=== PATIENT | female | born 1970 | race Caucasian/White ===

== ENCOUNTER 2018-06-21 10:09 | Outpatient (CLI) | payer BC, SELFPAY ==
[2018-06-21 12:46] LABS: ALT 24 U/L (12-78); AST 16 U/L (15-37); Albumin 3.6 g/dL (3.4-5.0); Alkaline Phosphatase 87 U/L (46-116); Anion Gap 10.4 mmol/L (3-11); BUN 19 mg/dL (7-18); Bilirubin, Total 0.3 mg/dL (0.2-1.0); CO2 24.6 mmol/L (21.0-32.0); CREATININE 0.76 mg/dL (0.55-1.02); Calcium 8.6 mg/dL (8.5-10.1); Chloride 105 mmol/L (98-107); Cholesterol 194 mg/dL (50-200); Glucose 77 mg/dL (70-100); HDL Cholesterol 39 mg/dL (40-60); LDL CHOLESTEROL 147 mg/dL (<100); Potassium 3.9 mmol/L (3.5-5.1); Sodium 140 mmol/L (136-145); Total Protein 6.5 g/dL (6.4-8.2); Triglyceride 54 mg/dL (30-150)
== END 2018-06-21 10:29 ==
PROVIDERS: PCP Family Medicine; Visit Provider Family Medicine
DX: Z00.00 Encounter for general adult medical examination without abnormal findings (principal)
CPT/HCPCS: 36415; 80053; 80061; 83721

== ENCOUNTER 2018-12-13 00:58 | Outpatient (CLI) | payer BC, SELFPAY ==
--- NOTE | 2018-12-13 10:30 | DI.MAMMO_ITS ---
SYMPTOM/DIAGNOSIS: SCREENING, Z12.31 MAMMOGRAMS: Mammograms were interpreted according to the usual protocol including computer analysis with CAD system, tomosynthesis and C view imaging. Comparison is made with prior examinations. Breast density, Category C. No suspicious masses or microcalcifications are seen. There is asymmetric breast tissue in the upper central left breast seen on the mediolateral oblique view. This area should be further evaluated with a spot compression view. Ultrasound may be indicated at that time. IMPRESSION: Additional views of the left breast as described above. Category 0. MQSA ASSESSMENT OF FINDINGS: Incomplete: Needs additional imaging evaluation. Category 0. Patient will receive a letter notifying them of these results. Bi-RADS category C. The breasts are heterogeneously dense, which may obscure small masses.
== END 2018-12-13 01:18 ==
PROVIDERS: PCP Family Medicine; Visit Provider Nurse Practitioner Family
DX: Z12.31 Encounter for screening mammogram for malignant neoplasm of breast (principal); R92.8 Other abnormal and inconclusive findings on diagnostic imaging of breast
CPT/HCPCS: 77063; 77067

== ENCOUNTER 2018-12-16 02:00 | Outpatient (CLI) | payer BC, SELFPAY ==
--- NOTE | 2018-12-16 13:24 | DI.COMBO_ITS ---
SYMPTOMS/DIAGNOSIS: ASYMMETRIC BREAST TISSUE, UPPER CENTRAL LEFT BREAST; PALPABLE PAINFUL LUMP IN RIGHT BREAST, N63.10 ADDITIONAL MAMMOGRAPHIC VIEWS, LEFT BREAST, AND LEFT BREAST ULTRASOUND: Additional images are interpreted according to the usual protocol including tomosynthesis and 2D imaging. Additional mammographic views of the left breast and left breast ultrasound are interpreted in conjunction. These examinations were obtained to evaluate a questionable area of asymmetric density seen on recent mammogram. Additional mammographic views fail to show a discrete mass. Breast ultrasound shows no evidence of a mass or cyst. CONCLUSION: No specific evidence of malignancy at this time. Follow-up unilateral left breast mammogram recommended in six months. Category 3, breast density category C. RIGHT BREAST ULTRASOUND: Right breast ultrasound was performed to evaluate a palpable area of abnormality that the patient reports in approximately the 8 o'clock position in the right breast about 1 cm from the nipple. This palpable area corresponds to a somewhat irregularly shaped, mildly heterogeneous, slightly hypervascular lesion. The lesion is indeterminate with some suspicious characteristics. Note is also made of a multiseptated cyst of the 9-10 o'clock position in the right breast, which is unchanged in appearance in comparison with examination of December 2017. No other lesion identified. CONCLUSION: Palpable suspicious lesion of the 8 o'clock position of the breast as described above. This measures about 1 cm in greatest diameter and lies 1 cm from the nipple. Ultrasound-guided biopsy recommended. Category 4. The results were reported to Esperanza Ortiz NP. MQSA ASSESSMENT OF FINDINGS: Suspicious. Biopsy should be considered. Category 4. Patient will receive a letter notifying them of these results. MQSA ASSESSMENT OF FINDINGS: Probably benign. Six month follow-up recommended. Category 3. Patient will receive a letter notifying them of these results. Bi-RADS category C. The breasts are heterogeneously dense, which may obscure small masses.
== END 2018-12-16 02:20 ==
PROVIDERS: PCP Family Medicine; Visit Provider Nurse Practitioner Family
DX: N63.13 Unspecified lump in the right breast, lower outer quadrant (principal); N60.82 Other benign mammary dysplasias of left breast; Z12.31 Encounter for screening mammogram for malignant neoplasm of breast; R92.8 Other abnormal and inconclusive findings on diagnostic imaging of breast; N60.01 Solitary cyst of right breast
CPT/HCPCS: 76642; 77063; 77067

== ENCOUNTER 2019-02-11 17:38 | Emergency (ER) | payer BC, SELFPAY ==
[2019-02-11 17:43] VITALS: BP 138/79; PULSE 100; RESP 16; TEMP 36.8; O2SAT 99
[2019-02-11] MEDS: Normal Saline Flush 10 ML SYR IVP (18:14)
[2019-02-11] MEDS: Lactated Ringers 1,000 ML 1000 ML IV (18:14)
[2019-02-11 18:30] LABS: Abs Immature Grans 0.04 k/cumm (0.0-0.09); Absolute Lymphocyte Count 1.75 k/cumm (1.2-3.4); Absolute Neutrophil Count 10.36 k/cumm (1.2-6.7); Basophils % 0.2; Eosinophils % 1.5; HCT 35.5 % (36.0-46.0); Immature Grans % 0.3; Lymphocytes % 13.2; Mean Corp. HGB Concentration 33.8 g/dL (32.0-36.0); Mean Corpuscular Hemoglobin 31.4 pg (27.0-33.0); Mean Corpuscular Volume 92.9 fL (80-95); Mean Platelet Volume 10.3 fL (8.0-11.0); Monocytes % 6.6; Neutrophils % 78.2; Platelet Count 259 x1000/uL (130-400); RBC 3.82 m/cumm (4.00-5.20); RBC Distribution Width 13.3 % (11.7-14.6); White Blood Cell Count 13.25 k/cumm (4.4-10.8)
[2019-02-11 18:31] LABS: Absolute Basophil Count 0.03 k/cumm (0.0-0.2); Absolute Monocyte Count 0.87 k/cumm (0.11-0.7)
[2019-02-11 19:04] LABS: ALT 26 U/L (12-78); AST 14 U/L (15-37); Albumin 3.4 g/dL (3.4-5.0); Alkaline Phosphatase 113 U/L (46-116); Anion Gap 12.3 mmol/L (3-11); BUN 18 mg/dL (7-18); Bilirubin, Total 0.2 mg/dL (0.2-1.0); CO2 22.7 mmol/L (21.0-32.0); Calcium 8.4 mg/dL (8.5-10.1); Chloride 104 mmol/L (98-107); Glucose 145 mg/dL (70-100); Potassium 3.5 mmol/L (3.5-5.1); Sodium 139 mmol/L (136-145); Total Protein 6.8 g/dL (6.4-8.2)
[2019-02-11] MEDS: VANCOMYCIN 1,500 MG in Normal Saline 250 ML 166.6666 MG IVPB (19:11)
--- NOTE | 2019-02-11 19:12 | ED.GENADUL_ITS ---
Discharge Plan Disposition Patient Disposition: [facility] Discharge Details Chief Complaint: Cellulitis Clinical Impression: Post-operative infection Primary Care Provider: Katheryn Velasquez ED Provider: Abdoul Ibrahim Home Meds and New Rx's Prescriptions: No Action omeprazole 40 mg capsule,delayed release(DR/EC) 40 mg PO DAILY Qty: 90 RF: 3 lisinopril-hydrochlorothiazide 10-12.5 mg tablet 1 tab PO DAILY Qty: 90 RF: 4 5-HTP 100 MG capsule 100 mg PO DAILY RF: 0 acetaminophen [Tylenol Extra Strength] 500 mg Tablet 1,000 mg PO BID RF: 0 ibuprofen 200 mg Tablet 600 mg PO DAILY RF: 0 Discharge Data Discharge Date/Time-TO BE ENTERED AT DEPARTURE: 02/11/19 22:38 Medical Decision Making 49-year-old female presents 8 days status post right mastectomy with infection at KIM drain site And increased output of KIM drain, febrile with myalgias. Patient is tachycardic. Currently afebrile. Normotensive. Labs reviewed and leukocytosis noted. Mild elevated lactate. Normal saline 1 L IV fluid bolus administered. Plan to initiate antibiotic coverage with vancomycin 1.5 g IV. 19:15 -- Call to [facility] [place] to request transfer. Awaiting call back from surgical team. 20:30 --I spoke with Dr. Freeman we discussed ED presentation and course including diagnostics he recommends adding ceftriaxone to treatment regimen. He will accept the patient in transfer. Awaiting bed confirmation. Lab Data 02/11/19 17:30 Blood Blood Culture - Pending 02/11/19 18:05 Blood Blood Culture - Pending Laboratory Tests Range/Units 02/11/19 02/11/19 02/11/19 18:05 18:05 18:05 WBC (4.4-10.8) k/cumm 13.25 H RBC (4.00-5.20) m/cumm 3.82 L Hgb (12.0-15.5) g/dL 12.0 Hct (36.0-46.0) % 35.5 L MCV (80-95) fL 92.9 MCH (27.0-33.0) pg 31.4 MCHC (32.0-36.0) g/dL 33.8 RDW (11.7-14.6) % 13.3 Plt Count (130-400) x1000/uL 259 MPV (8.0-11.0) fL 10.3 Immature Gran % 0.3 Neutrophils % 78.2 Lymphocytes % 13.2 Monocytes % 6.6 Eosinophils % 1.5 Basophils % 0.2 Absolute Neutrophils (1.2-6.7) k/cumm 10.36 H Absolute Lymphocytes (1.2-3.4) k/cumm 1.75 Absolute Monocytes (0.11-0.7) k/cumm 0.87 H Absolute Eosinophils (0.0-0.7) k/cumm 0.20 Absolute Basophils (0.0-0.2) k/cumm 0.03 Sodium (136-145) mmol/L 139 Potassium (3.5-5.1) mmol/L 3.5 Chloride (98-107) mmol/L 104 Carbon Dioxide (21.0-32.0) mmol/L 22.7 Anion Gap (3-11) mmol/L 12.3 H BUN (7-18) mg/dL 18 Creatinine (0.55-1.02) mg/dL 0.80 Estimated GFR/1.73 m2 (mL/min/1.73m2) >= 60.00 Glucose (70-100) mg/dL 145 H Lactate (0.6-1.4) mmol/L 2.0 H Calcium (8.5-10.1) mg/dL 8.4 L Total Bilirubin (0.2-1.0) mg/dL 0.2 AST (15-37) U/L 14 L ALT (12-78) U/L 26 Alkaline Phosphatase (46-116) U/L 113 Total Protein (6.4-8.2) g/dL 6.8 Albumin (3.4-5.0) g/dL 3.4 Urine Color (Yellow) Urine Clarity (Clear) Urine pH (5-8) Ur Specific [place] (1.005-1.025) Urine Protein (Negative) mg/dL Urine Ketones (Negative) mg/dL Urine Blood (Negative) Urine Nitrite (Negative) Urine Bilirubin (Negative) Urine Urobilinogen (Up TO 0.2) EU/dL Ur Leukocyte Esterase (Negative) Urine RBC (0-2) Urine WBC (0-5) HPF Ur Epithelial Cells (Negative) HPF Urine Crystals (Negative) HPF Urine Bacteria (Negative) HPF Urine Mucus (Negative) Ur Culture Indicated? Urine Glucose (Negative) mg/dL Range/Units 02/11/19 19:45 WBC (4.4-10.8) k/cumm RBC (4.00-5.20) m/cumm Hgb (12.0-15.5) g/dL Hct (36.0-46.0) % MCV (80-95) fL MCH (27.0-33.0) pg MCHC (32.0-36.0) g/dL RDW (11.7-14.6) % Plt Count (130-400) x1000/uL MPV (8.0-11.0) fL Immature Gran % Neutrophils % Lymphocytes % Monocytes % Eosinophils % Basophils % Absolute Neutrophils (1.2-6.7) k/cumm Absolute Lymphocytes (1.2-3.4) k/cumm Absolute Monocytes (0.11-0.7) k/cumm Absolute Eosinophils (0.0-0.7) k/cumm Absolute Basophils (0.0-0.2) k/cumm Sodium (136-145) mmol/L Potassium (3.5-5.1) mmol/L Chloride (98-107) mmol/L Carbon Dioxide (21.0-32.0) mmol/L Anion Gap (3-11) mmol/L BUN (7-18) mg/dL Creatinine (0.55-1.02) mg/dL Estimated GFR/1.73 m2 (mL/min/1.73m2) Glucose (70-100) mg/dL Lactate (0.6-1.4) mmol/L Calcium (8.5-10.1) mg/dL Total Bilirubin (0.2-1.0) mg/dL AST (15-37) U/L ALT (12-78) U/L Alkaline Phosphatase (46-116) U/L Total Protein (6.4-8.2) g/dL Albumin (3.4-5.0) g/dL Urine Color (Yellow) Yellow Urine Clarity (Clear) Clear Urine pH (5-8) 6.0 Ur Specific [place] (1.005-1.025) 1.020 Urine Protein (Negative) mg/dL Negative Urine Ketones (Negative) mg/dL Negative Urine Blood (Negative) Trace-intact H Urine Nitrite (Negative) Negative Urine Bilirubin (Negative) Negative Urine Urobilinogen (Up TO 0.2) EU/dL 0.2 Ur Leukocyte Esterase (Negative) Negative Urine RBC (0-2) 0-2 Urine WBC (0-5) HPF 0-2 Ur Epithelial Cells (Negative) HPF Many Urine Crystals (Negative) HPF Negative Urine Bacteria (Negative) HPF Few Urine Mucus (Negative) Trace Ur Culture Indicated? No Urine Glucose (Negative) mg/dL Negative HPI General Mode of arrival: ambulatory . Date/Time Provider Initiated Documentation: 02/11/19 17:51 . Limitations to Documentation: no limitations . Information obtained by: patient . HPI Narrative: 49yo f presents 8 days status post right mastectomy for breast cancer with chief complaint of inflammation at KIM drain site for the past 2 days. Patient notes she started to have some discomfort and redness at the site that she noticed last night. She also notes that she has not been feeling well for the past couple days. Patient notes generally not feeling well with body aches. She is felt feverish since last night. Fever as high as 99.6F. Patient notes associated increased purulent output from KIM drain. Related Data Home Medications Medication Instructions Recorded Confirmed 5-hydroxytryptophan (5-HTP) [5-Htp] 100 mg PO DAILY 12/21/17 02/11/19 lisinopril 10 1 tab PO DAILY #90 tab 06/21/18 02/11/19 mg-hydrochlorothiazide 12.5 mg tablet omeprazole 40 mg capsule,delayed 40 mg PO DAILY #90 cap 06/21/18 02/11/19 release acetaminophen [Tylenol Extra 1,000 mg PO BID 02/11/19 02/11/19 Strength] ibuprofen 600 mg PO DAILY 02/11/19 02/11/19 Previous Rx's Medication Instructions Recorded lisinopril 10 1 tab PO DAILY #90 tab 06/21/18 mg-hydrochlorothiazide 12.5 mg tablet omeprazole 40 mg capsule,delayed 40 mg PO DAILY #90 cap 06/21/18 release Allergies Allergy/AdvReac Type Severity Reaction Status Date / Time topiramate [From Topamax] AdvReac Verified 02/11/19 17:47 General Stated Complaint: Cellulitis KEVIN: 3 Review of Systems Review of Systems All systems reviewed & are unremarkable except as noted in HPI and below Constitutional Reports body ache(s), Reports fatigue and Reports fever(s) Integumentary/Breasts Reports as per HPI Endocrine Reports fatigue PFSH Medical History Shortness of breath (Chronic) Peptic reflux disease (Chronic 07/26/13) Near syncope (Chronic 11/05/15) Low back pain (Chronic) Left groin pain (Chronic 12/25/14) Intractable migraine without aura and with status migrainosus (Chronic 12/24/15) Hyperlipidemia (Chronic) Hiatal hernia (Chronic) Essential hypertension (Chronic 07/21/13) Depressive disorder (Chronic) Degeneration of cervical intervertebral disc (Chronic) Chronic daily headache (Chronic 12/24/15) BV (bacterial vaginosis) (Resolved) Surgical History EGD - MAC (08/13/14) Endometrial Ablation (~2011) Endometrial Biopsy (08/26/11) Ligation of fallopian tube Vaginal hysterectomy (04/22/16) Family History Father Personal history of malignant neoplasm Aorta aneurysm Hypertension Hyperlipidemia Mother Aorta aneurysm Hypertension Hyperlipidemia Aunt/Uncle Aorta aneurysm Sister Bipolar 1 disorder Son No problems noted. Son No problems noted. Daughter No problems noted. Daughter No problems noted. Social History Smoking/Tobacco Use Status: Never Alcohol Intake: never Drug use: Never Substance use type: does not use Household members: other Details: 3 current occupation: [employer]. Pets and animals: Yes Pets and animals: dog(s) and other Details: RABBIT Frequency: does not exercise Augustina/Rastafari: No preference Special augustina needs: No Do you feel safe at home: Yes Do you feel safe in your relationship?: Yes Exam Const General: cooperative and no acute distress HENMT Head: normocephalic Mouth: moist mucous membranes Eyes Conjunctivae: normal conjunctivae Sclera: normal sclerae Neck Neck: trachea midline Chest Chest: rash (Localized erythema around KIM drain with mild induration, no fluctuance) and other (Surgical wound without erythema) Other: KIM intact and draining Resp Auscultation: clear to auscultation bilaterally, no rales, no rhonchi and no wheezes Cardio Jugular venous pressure: no JVD Rate: tachycardic Rhythm: regular rhythm Skin General skin exam: no rashes or lesions noted Neuro General: alert, awake and tone normal Extrem General: no edema Course Vital Signs Temperature 36.8 C 02/11/19 17:43 Pulse 100 H 02/11/19 17:43 Respiratory Rate 16 02/11/19 17:43 Blood Pressure 138/79 02/11/19 17:43 Pulse Oximetry 99 02/11/19 17:43 Temperature 36.8 C 02/11/19 17:43 Temperature Source Temporal Artery Scan 02/11/19 17:43 Pulse 100 H 02/11/19 17:43 Respiratory Rate 16 02/11/19 17:43 Respiratory Effort Non-Labored 02/11/19 17:45 Blood Pressure 138/79 02/11/19 17:43 Blood Pressure Position Sitting 02/11/19 17:43 Pulse Oximetry 99 02/11/19 17:43 Oxygen Delivery Method Room Air 02/11/19 17:43 Oxygen Flow Rate 0 02/11/19 17:43 Pain Level 8 02/11/19 17:43 Lab/Test Results Lab/Test Results: 02/11/19 17:30 Blood Blood Culture - Pending 02/11/19 18:05 Blood Blood Culture - Pending Laboratory Tests Range/Units 02/11/19 02/11/19 02/11/19 18:05 18:05 18:05 WBC (4.4-10.8) k/cumm 13.25 H RBC (4.00-5.20) m/cumm 3.82 L Hgb (12.0-15.5) g/dL 12.0 Hct (36.0-46.0) % 35.5 L MCV (80-95) fL 92.9 MCH (27.0-33.0) pg 31.4 MCHC (32.0-36.0) g/dL 33.8 RDW (11.7-14.6) % 13.3 Plt Count (130-400) x1000/uL 259 MPV (8.0-11.0) fL 10.3 Immature Gran % 0.3 Neutrophils % 78.2 Lymphocytes % 13.2 Monocytes % 6.6 Eosinophils % 1.5 Basophils % 0.2 Absolute Neutrophils (1.2-6.7) k/cumm 10.36 H Absolute Lymphocytes (1.2-3.4) k/cumm 1.75 Absolute Monocytes (0.11-0.7) k/cumm 0.87 H Absolute Eosinophils (0.0-0.7) k/cumm 0.20 Absolute Basophils (0.0-0.2) k/cumm 0.03 Sodium (136-145) mmol/L 139 Potassium (3.5-5.1) mmol/L 3.5 Chloride (98-107) mmol/L 104 Carbon Dioxide (21.0-32.0) mmol/L 22.7 Anion Gap (3-11) mmol/L 12.3 H BUN (7-18) mg/dL 18 Creatinine (0.55-1.02) mg/dL 0.80 Estimated GFR/1.73 m2 (mL/min/1.73m2) >= 60.00 Glucose (70-100) mg/dL 145 H Lactate (0.6-1.4) mmol/L 2.0 H Calcium (8.5-10.1) mg/dL 8.4 L Total Bilirubin (0.2-1.0) mg/dL 0.2 AST (15-37) U/L 14 L ALT (12-78) U/L 26 Alkaline Phosphatase (46-116) U/L 113 Total Protein (6.4-8.2) g/dL 6.8 Albumin (3.4-5.0) g/dL 3.4
--- NOTE | 2019-02-11 19:14 | NUR.NOTE ---
pt medicated as per mdo iv antibiotis infusing Nursing Note:
[2019-02-11 20:05] LABS: Bilirubin Negative (Negative); Blood Trace-intact (Negative); Clarity Clear (Clear); Glucose Negative (Negative); Ketones Negative (Negative); Leukocyte Esterase Negative (Negative); Nitrite Negative (Negative); Urobilinogen 0.2 EU/dL (Up TO 0.2)
[2019-02-11 20:17] LABS: WBC 0-2 HPF (0-5)
[2019-02-11 20:18] LABS: Bacteria Few HPF (Negative); C & S Indicated? No; Crystals Negative HPF (Negative); Epithelial Cells Many HPF (Negative); Mucus Trace (Negative); RBC 0-2 (0-2)
[2019-02-11] MEDS: cefTRIAXone 2 GM/50 ML BAG IVPB (22:15)
[2019-02-11 22:18] VITALS: BP 119/61; PULSE 96; RESP 18; TEMP 37.3; O2SAT 97
[2019-02-11] MEDS: Normal Saline 1,000 ML 100 ML IV (22:35)
[2019-02-11 23:26] VITALS: BP 119/61; PULSE 96; RESP 18; TEMP 37.3; O2SAT 97
== END 2019-02-11 22:38 | disposition short-term general hospital (02) ==
PROVIDERS: Emergency Provider Student in an Organized Health Care Education/Training Program; PCP Family Medicine
DX: T81.40XA Infection following a procedure, unspecified, initial encounter (principal); R00.0 Tachycardia, unspecified; Z90.11 Acquired absence of right breast and nipple
CPT/HCPCS: 36415; 80053; 87040; 96361; 96365; 96366; 96367; 99285; 81003; 81015; 83605; 85025; 99284

== ENCOUNTER 2019-05-18 03:34 | Outpatient (CLI) | payer BC, SELFPAY ==
[2019-05-18 10:41] LABS: Abs Immature Grans 0.03 k/cumm (0.0-0.09); Absolute Basophil Count 0.02 k/cumm (0.0-0.2); Absolute Eosinophil Count 0.11 k/cumm (0.0-0.7); Absolute Monocyte Count 0.37 k/cumm (0.11-0.7); Absolute Neutrophil Count 3.71 k/cumm (1.2-6.7); Basophils % 0.3; Eosinophils % 1.9; HCT 40.4 % (36.0-46.0); HGB 13.3 g/dL (12.0-15.5); Immature Grans % 0.5; Lymphocytes % 26.1; Mean Corp. HGB Concentration 32.9 g/dL (32.0-36.0); Mean Corpuscular Hemoglobin 30.3 pg (27.0-33.0); Mean Platelet Volume 10.7 fL (8.0-11.0); Monocytes % 6.4; Neutrophils % 64.8; Platelet Count 240 x1000/uL (130-400); RBC 4.39 m/cumm (4.00-5.20); RBC Distribution Width 13.6 % (11.7-14.6); White Blood Cell Count 5.74 k/cumm (4.4-10.8)
[2019-05-18 11:07] LABS: ALT 27 U/L (14-59); AST 18 U/L (15-37); Albumin 3.6 g/dL (3.4-5.0); Alkaline Phosphatase 96 U/L (46-116); Anion Gap 7.4 mmol/L (3-11); BUN 17 mg/dL (7-18); Bilirubin, Total 0.3 mg/dL (0.2-1.0); CO2 28.6 mmol/L (21.0-32.0); CREATININE 0.78 mg/dL (0.55-1.02); Calcium 8.5 mg/dL (8.5-10.1); Calculated LDL 141 mg/dL; Chloride 105 mmol/L (98-107); Cholesterol 214 mg/dL (50-200); Glucose 95 mg/dL (70-100); HDL Cholesterol 40 mg/dL (40-60); Potassium 4.1 mmol/L (3.5-5.1); Sodium 141 mmol/L (136-145); TSH (W/Ref FT4) 1.08 uIU/mL (0.36-3.74); Total Protein 6.5 g/dL (6.4-8.2); Triglyceride 167 mg/dL (30-150)
[2019-05-19 20:26] LABS: Tissue Transglutaminase Ab IgA <1.2 U/mL
== END 2019-05-18 03:54 ==
PROVIDERS: PCP Family Medicine; Visit Provider Nurse Practitioner Family
DX: Z00.00 Encounter for general adult medical examination without abnormal findings (principal); Z13.228 Encounter for screening for other metabolic disorders; Z13.220 Encounter for screening for lipoid disorders; Z13.29 Encounter for screening for other suspected endocrine disorder; K90.0 Celiac disease
CPT/HCPCS: 36415; 80053; 80061; 83516; 84443; 85025

== ENCOUNTER 2019-06-16 01:51 | Outpatient (CLI) | payer BC, SELFPAY ==
[2019-06-16 13:11] LABS: Anion Gap 9.3 mmol/L (3-11); BUN 16 mg/dL (7-18); CO2 25.7 mmol/L (21.0-32.0); CREATININE 0.73 mg/dL (0.55-1.02); Calcium 8.7 mg/dL (8.5-10.1); Chloride 105 mmol/L (98-107); Glucose 110 mg/dL (70-100); Sodium 140 mmol/L (136-145)
== END 2019-06-16 02:11 ==
PROVIDERS: Nurse Practitioner; PCP Family Medicine; Visit Provider Family Medicine
DX: R00.2 Palpitations (principal)
CPT/HCPCS: 36415; 80048; 84443

== ENCOUNTER 2019-06-22 01:56 | Outpatient (CLI) | payer BC, SELFPAY | END 2019-06-22 02:16 | PROVIDERS: PCP Family Medicine; Visit Provider Nurse Practitioner | DX: R00.0 Tachycardia, unspecified (principal); I49.3 Ventricular premature depolarization | CPT/HCPCS: 93225 ==

== ENCOUNTER 2019-06-24 14:13 | Outpatient (CLI) | payer BC, SELFPAY ==
--- NOTE | 2019-06-26 08:23 | W.HOLTRPT ---
Date of service: 06/26/19 Time of Service: 08:23 Holter Monitor Report Holter Monitor Note: There is a 48-hour Holter monitor ordered for the indication of palpitations. ?The patient was in normal sinus rhythm for the majority of the recording time. Heart rate ranged from 63 bpm to 133 bpm ?There were no episodes of supraventricular tachycardia. There were no premature atrial contractions. ?There were no episodes of ventricular tachycardia and 3 total single ventricular ectopic beats during this recording. ?There were no episodes of atrial fibrillation, no pauses gradient 3 seconds and no episodes of high degree heart block.
== END 2019-06-24 14:33 ==
PROVIDERS: PCP Family Medicine; Visit Provider Family Medicine
DX: R00.0 Tachycardia, unspecified (principal); I49.3 Ventricular premature depolarization
CPT/HCPCS: 93226

== ENCOUNTER 2019-06-26 10:53 | Outpatient (CLI) | payer BC, SELFPAY ==
[2019-06-29 16:29] LABS: 1,25-Dihydroxyvitamin D 58 pg/mL (18-78)
== END 2019-06-26 11:13 ==
PROVIDERS: PCP Family Medicine; Visit Provider Family Medicine
DX: Z00.00 Encounter for general adult medical examination without abnormal findings (principal); M81.0 Age-related osteoporosis without current pathological fracture
CPT/HCPCS: 36415; 82652

== ENCOUNTER 2019-07-18 01:57 | Outpatient (CLI) | payer BC, SELFPAY ==
[2019-07-18 13:32] LABS: ESR 21 mm/hr (0-20)
[2019-07-18 14:40] LABS: C-Reactive Protein 0.29 mg/dL (0.0-0.3); Creatine Kinase 131 U/L (26-192); TSH (W/Ref FT4) 1.19 uIU/mL (0.36-3.74)
[2019-07-18 14:42] LABS: Vitamin B12 416 pg/mL (193-986)
[2019-07-19 08:58] LABS: Vitamin D 25 Total 19.9 ng/ml (30-100)
[2019-07-19 09:02] LABS: Cyclic Citrullinated Peptide <2.5 U/mL (<5.0)
[2019-07-19 10:47] LABS: Rheumatoid Factor <7.5 IU/mL (<12.5)
[2019-07-19 10:58] LABS: Lyme Ab w Rflx to Lyme Confirm Negative (Negative)
[2019-07-19 13:25] LABS: IgA 175 mg/dL (85-499); Tissue Transglutaminase IgA <1.2 U/mL (<4.0)
[2019-07-19 15:26] LABS: ANA Interpretation Negative (Negative)
== END 2019-07-18 02:17 ==
PROVIDERS: PCP Family Medicine; Visit Provider Family Medicine
DX: R00.2 Palpitations (principal); R06.02 Shortness of breath; R53.83 Other fatigue; M25.50 Pain in unspecified joint
CPT/HCPCS: 36415; 82306; 82550; 82784; 83516; 85652; 86200; 82607; 84443; 86038; 86140; 86431; 86618

== ENCOUNTER 2019-08-03 00:20 | Outpatient (CLI) | payer BC, SELFPAY ==
--- NOTE | 2019-08-03 13:50 | DI.US_ITS ---
APPROVED REPORT EXAM: Comprehensive 2D, Doppler, and color-flow Echocardiogram Patient Location: Out-Patient Mechanical Assembler: Gogo Salazar RDCS (AE) Rhythm: NSR Indications: Shortness of breath R06.02, PALPITATIONS R00.2 Conclusion Normal LV size and systolic function. Estimated EF 60-65%. Normal wall motion There is no chamber enlargement There are no significant structural valvular abnormalites There is no hemodynamically significant valvular disease Wall motion Left Ventricle The left ventricle is normal size. The left ventricular systolic function is normal. The left ventric ular ejection fraction is within the normal range. There is normal left ventricular wall thickness. T here is normal LV segmental wall motion. Transmitral Doppler flow pattern suggests impaired LV relaxa tion. LVEF is estimated to be 60-65%. Right Ventricle The right ventricle is normal size. The right ventricular systolic function is normal. Atria The left atrium size is normal. The right atrium size is normal. Aortic Valve The aortic valve is normal in structure. There is no aortic valvular stenosis. No aortic regurgitatio n is present. Mitral Valve Mitral valve leaflets are mildly thickened. Trace to mild mitral regurgitation. Tricuspid Valve The tricuspid valve is mildly thickened, but opens well. Mild tricuspid regurgitation. Pulmonic Valve Pulmonic valve is not well visualized. Great Vessels The aortic root is normal in size. IVC is normal in size and collapses >50% with inspiration. Pericardium There is no pericardial effusion. 2D Dimensions IVSd 0.65 cm F: 0.6-1.0 LV EDV A2C 111.00 mL PWd 0.90 cm F: 0.6 - 1.0 LV EDV A4C 86.50 mL LVDd 4.25 cm F: 3.8 - 5.2 LA Volume Index A2C 21.98 mL/m2 LVDs 2.80 cm F: 2.2 - 3.5 LA Volume Index A4C 27.09 mL/m2 Aortic Root 2.65 cm F: 2.7 - 3.3 LA Volume Index Biplane 26.08 mL/m2 RA Area A4C 12.07 cm2 LA Area A4C 16.11 cm2 LVOT 1.85 cm (M/F) 1.5-2.5 LA Area A2C 15.51 cm2 Ascending Aorta 3.03 cm F: 2.3 - 3.1 EF AP4 65.55 % LVEF (Teich) 63.63 % EF AP2 63.87 % LVEF (Blair's) 64.61 % F: 54 - 74 EF BP 64.61 % LV Volume 80.24 mL F: 46 - 106 LV Volume Index 42.90 mL/m2 F: 29 - 61 FS 34.25 % LV Diastology E/A Ratio 1.1 MED E' 0.11 (>0.07 m/s) LV E/e MED 8.25 (<14) LAT E' 0.13 (>0.1 m/s) LV E/e LAT 7.30 (<14) Pulm Vein s 0.65 m/s PV S/D Ratio 1.18 Pulm Vein d 0.55 m/s Pulm Vein a 0.32 m/s A-A Duration 138.13 msec Aortic Valve LVOT Area 2.83 cm2 LVOT Vmax 1.39 m/s LVOT Mean Papi. 0.97 m/s LVOT Peak Gr. 7.7 mmHg LVOT Mean Gr. 4.4 mmHg AoV Area/ BSA (Vmax) 1.17 cm2/m2 LVOT VTI 0.267 m AoV Vmax 1.80 (0.5-1.3 m/s) SYLVESTER Mean Papi. Index 1.20 cm2/m2 AoV Mean Papi. 1.23 m/s AoV Peak Grad 13.0 mmHg AoV Mean Grad 6.6 (<5 mmHg) AoV VTI 0.334 (0.18-0.25 m) AoV Area VTI 2.30 (2.5-4.5 cm2) AoV Area/ BSA (VTI) 1.23 cm/m2 Mitral Valve MV E Max Papi. 0.94 (0.4-1.3 m/s) MV A Velocity 0.85 (0.4-1.3 m/s) E/A Ratio 1.06 MV Decel. Time 214.40 (160-240 msec) MV Regurg Volume 9.72 mL MV PHT 62.18 msec MV RF 11.23 % MVA PHT 3.50 cm2 Pulmonary Valve PV Peak Velocity 1.07 (0.5-1.5 m/s) Tricuspid Valve TR P. Velocity 2.24 m/s TV Regurg Vmax 2.24 m/s RAP Estimate 3.00 mmHg RVSP 23.00 mmHg TR P. Gradient 20.00 mmHg
== END 2019-08-03 00:40 ==
PROVIDERS: PCP Family Medicine; Visit Provider Family Medicine
DX: R00.2 Palpitations (principal); R06.02 Shortness of breath; I10 Essential (primary) hypertension
CPT/HCPCS: 93306

== ENCOUNTER 2020-02-23 09:11 | Outpatient (CLI) | payer BC, SELFPAY ==
--- NOTE | 2020-02-23 09:30 | DI.RAD_ITS ---
EXAM: XR LUMBAR SPINE COMPLETE CLINICAL HISTORY: lbp LOW BACK PAIN M54.5 TECHNIQUE: COMPARISON: CR LUMBAR SPINE COMPLETE from 08/10/2013 FINDINGS: Five views were obtained. There are mild degenerative changes of the SI joints bilaterally. There is bilateral L5 spondylolysis with spondylolisthesis of L5 on S1 estimated at 20 percent of the vertebral width. The intervertebral disc spaces appear well maintained except for disc space loss of height at L5-S1. Mild hypertrophic endplate and facet changes noted throughout the lumbar region. No evidence of fra cture. IMPRESSION: Bilateral L5 spondylolysis with associated mild anterior spondylolisthesis of L5 on S1 estimated at 2 0 percent of the vertebral width. Mild degenerative hypertrophic changes also noted involving facet joints and vertebral endplates.
== END 2020-02-23 09:31 ==
PROVIDERS: PCP Family Medicine; Visit Provider Family Medicine
DX: M54.5 Low back pain (principal); M43.17 Spondylolisthesis, lumbosacral region; M51.36 Other intervertebral disc degeneration, lumbar region
CPT/HCPCS: 72110

== ENCOUNTER 2020-03-06 01:51 | Outpatient (CLI) | payer BC, SELFPAY ==
--- NOTE | 2020-03-06 06:00 | DI.MRI_ITS ---
EXAM: MR LUMBAR SPINE WO CLINICAL HISTORY: spondylosis worse, weak quads and decreased reflex L4,m43.17,m62.81,r29.2. TECHNIQUE: Multiplanar multisequence MRI of the Lumbar spine was performed. COMPARISON: MR MRI - LUMBAR SPINE WO CONTRAST from 09/06/2013 CR XR LUMBAR SPINE COMPLETE from 02/23/2020 FINDINGS: Bones: The last intervertebral disc space is designated the L5/S1 level for the numbering purpose of this examination. The vertebral body heights are well maintained. Alignment is satisfactory. The si gnal characteristics are unremarkable. Cord: The conus tip ends at the T12 level. It is of normal size and signal intensity. T12-L1: No disc herniations or bulges are present. L1-2: No disc herniations or bulges are present. L2-3: No disc herniations or bulges are present. L3-4: No disc herniations or bulges are present. L4-5: No disc herniations or bulges are present. L5-S1: There is moderate loss disc height, small endplate osteophytes and mild concentric disc bulgi ng. There is a right foraminal disc herniation with nerve root impingement. There is [id number] te left neural foraminal narrowing. L5 spondylolysis and mild S1 L5-S1 spondylolisthesis is present. Soft tissues: The visualized SI joints and sacrum are well maintained. The paraspinal soft tissues ar e unremarkable. IMPRESSION: L5 spondylolysis and mild L5-S1 spondylolisthesis. Focal disc herniation occupying the right neural foramen. Left neural foraminal narrowing secondary to combination of degenerative changes and spond ylo listhesis. DATA REPOSITORY:
--- NOTE | 2020-03-06 06:00 | DI.RAD_ITS ---
EXAM: XR LUMBAR SPINE AP, LAT CLINICAL HISTORY: 10-20% increase in spondylo in 6 years,m43.17,m62.81,r29.2 TECHNIQUE: 2D digital imaging was performed. AP, neutral, flexion and extension lateral views. COMPARISON: CR XR LUMBAR SPINE COMPLETE from 02/23/2020 MR MR LUMBAR SPINE WO from 03/06/2020 FINDINGS: L5 spondylolysis and L5 spondylolisthesis is again noted, unchanged. There is slight motion with fl exion and extension. The patient experience pain with flexion and extension in the range of motion w as somewhat limited. There is moderate loss of disc height at L5-S1. The remaining disc spaces are well maintained. Small endplate osteophytes are seen. There are facet degenerative changes greatest at L4-5. IMPRESSION: L5 spondylolysis and mild L5-S1 spondylolisthesis with slight motion with flexion and extension.
== END 2020-03-06 02:11 ==
PROVIDERS: PCP Family Medicine; Visit Provider Family Medicine
DX: M43.17 Spondylolisthesis, lumbosacral region (principal); M62.81 Muscle weakness (generalized); R29.2 Abnormal reflex
CPT/HCPCS: 72100; 72148

== ENCOUNTER 2020-10-08 08:39 | Emergency (ER) | payer BC, SELFPAY ==
[2020-10-08 08:44] VITALS: BP 191/92; PULSE 118; RESP 16; TEMP 37.4; O2SAT 98
--- NOTE | 2020-10-08 08:55 | W.ED.GENAD ---
Discharge Plan Disposition Patient Disposition: HOME Condition: Stable Discharge Details Clinical Impression: Left ovarian cyst Primary Care Provider: Katheryn Velasquez ED Provider: Alta Dowd Home Meds and New Rx's Prescriptions: Continued cholecalciferol (vitamin D3) 250 mcg (10,000 unit) capsule 250 mcg PO DAILY RF: 0 erythromycin 5 mg/gram (0.5 %) ointment 1 applic OP QID Qty: 1 RF: 1 omeprazole 40 mg capsule,delayed release(DR/EC) 40 mg PO BID Qty: 90 RF: 3 lisinopril-hydrochlorothiazide 10-12.5 mg tablet 1 tab PO DAILY Qty: 90 RF: 4 acetaminophen [Tylenol Extra Strength] 500 mg tablet 1,000 mg PO BID PRNRF: 0 Discharge Instructions Instructions: Ovarian Cyst (ED) Additional Instructions: Follow up with primary care provider in 7-10 days. Please discuss with primary care provider the concern for 5 mg of glucose in your urine. Return to ED sooner if any worsening or concerns. Increase oral fluids. At this time ultrasound shows a small 14 mm left ovarian cyst. This continues to cause you significant pain and/or nausea vomiting please follow-up sooner or return to the ED. Please take Tylenol or Ibuprofen with food every 4-6 hours as needed for pain and swelling. Referrals: Katheryn Velasquez MD, [place] [Primary Care Provider] - Discharge Data Discharge Date/Time-TO BE ENTERED AT DEPARTURE: 10/08/20 11:30 Medical Decision Making 50-year-old female presents to the ED with chief complaint of abdominal pain. This started Wednesday night she states that it began with left lower quadrant abdominal pain which radiated around abdomen and up into her right upper quadrant. She states that it radiates into her left lower back. Associated with nausea, no vomiting no diarrhea. She also endorses urinary frequency. Denies any fever, chills, admit to emesis or hematochezia. She does have a past surgical history of a endometrial ablation, hysterectomy breast cancer, chronic gastritis, hiatal hernia, hypertension, hyperlipidemia. 1104: Patient reevaluation, patient states that she is complaining of 2-3 out of 10 intermittent abdominal pain which waxes and wanes. I did discuss her lab results with her including the slightly low potassium at 3.4, glucose of 114, urine ketones at 15, and 500 mg of glucose in her urine. Urine is negative for leukocytes or nitrites no evidence for UTI. Due to the complaint of urinary frequency a hemoglobin A1c was added onto her labs. I did discuss having patient follow-up with PCP regarding her sugar and spilling glucose in her urine. Abdominal US: FINDINGS: Abdominal ultrasound was performed according to the usual protocol. The liver is normal in size and shape. No focal hepatic lesion seen. There is no evidence of cholelithiasis or biliary dilatation. No gallbladder wall thickening or pericholecystic fluid collection. Pancreas appears intact as visualized. Spleen is unremarkable in appearance with no focal lesion. Kidneys are normal in size and shape. No renal mass, hydronephrosis, or nephrolithiasis. Abdominal aorta and IVC are of normal diameter. Scanning of the pelvis was performed with transabdominal and transvaginal scanning. The uterus has been surgically removed. Left ovary contains 14 millimeter in diameter presumed dominant follicle. No solid mass or complex mass identified in either ovary. Right ovary measures 26 x 14 x 13 millimeters and left ovary measures 21 x 12 by 16 millimeters. No free fluid identified the pelvis. IMPRESSION: Negative abdominal ultrasound . Discussed ultrasound results with patient who verbalizes understanding. She does have a history of ovarian cysts. Discussed home care and follow-up strict return instructions, verbalized understanding. Patient was given 3 tablets of Zofran ODT to go. This text was generated using [employer] system, please disregard any oddities of phrase or misspellings. HPI General Mode of arrival: ambulatory. Date/Time Provider Initiated Documentation: 10/08/20 08:41. Limitations to Documentation: no limitations. Information obtained by: patient. HPI Narrative: 50-year-old female presents to the ED with chief complaint of abdominal pain. This started Wednesday night she states that it began with left lower quadrant abdominal pain which radiated around abdomen and up into her right upper quadrant. She states that it radiates into her left lower back. Associated with nausea, no vomiting no diarrhea. She also endorses urinary frequency. Denies any fever, chills, admit to emesis or hematochezia. She does have a past surgical history of a endometrial ablation, hysterectomy breast cancer, chronic gastritis, hiatal hernia, hypertension, hyperlipidemia. Related Data Home Medications Medication Instructions Recorded Confirmed acetaminophen 500 mg tablet 1,000 mg PO BID PRN 04/06/19 06/27/20 erythromycin 5 mg/gram (0.5 %) eye 1 applic OP QID #1 gm 02/12/20 06/27/20 ointment lisinopril 10 1 tab PO DAILY #90 tab 04/09/20 06/27/20 mg-hydrochlorothiazide 12.5 mg tablet omeprazole 40 mg capsule,delayed 40 mg PO BID #90 cap 04/09/20 06/27/20 release cholecalciferol (vitamin D3) 250 250 mcg PO DAILY 06/27/20 06/27/20 mcg (10,000 unit) capsule Previous Rx's Medication Instructions Recorded erythromycin 5 mg/gram (0.5 %) eye 1 applic OP QID #1 gm 02/12/20 ointment lisinopril 10 1 tab PO DAILY #90 tab 04/09/20 mg-hydrochlorothiazide 12.5 mg tablet omeprazole 40 mg capsule,delayed 40 mg PO BID #90 cap 04/09/20 release Allergies Allergy/AdvReac Type Severity Reaction Status Date / Time topiramate [From Topamax] AdvReac Mental Verified 08/27/20 11:23 changes General Stated Complaint: Abd Prob KEVIN: 3 Review of Systems Narrative: Constitutional: Negative for weight loss, alert and oriented, well groomed, normal body habitus, appears comfortable. HEENT: Denies trauma, headaches, blurry vision, nasal discharge, sore throat, trouble swallowing. Chest: Denies chest pain, palpitations, irregular rhythm, hypertension. Respiratory: Denies Shortness of breath, cough, hemoptysis. GI: Denies vomiting, diarrhea, constipation. Positive abdominal pain, nausea. : Denies dysuria, hematuria, rectal bleeding. Reports urinary frequency. Neuro: Denies dizziness, blurry vision, weakness, syncope, headache or facial numbness. Hematologic: Denies easy bruising, intolerance to heat or cold, hair loss. [facility] Medical History BV (bacterial vaginosis) Rx with Flagyl 01/06/16 Chronic daily headache (12/24/15) Degeneration of cervical intervertebral disc 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 lab-normal; PFT-? asthma-decreased FEV1/FVC; no response to albuterol; increased diffusion capacity Surgical History EGD - MAC (08/13/14) DR. MCDANIEL Endometrial Ablation (~2011) Endometrial Biopsy (08/26/11) Ligation of fallopian tube Vaginal hysterectomy (04/22/16) Family History Father Aorta aneurysm Hypertension Hyperlipidemia Cancer of kidney 1/5 of kidney removed Heart disease Alcohol abuse Mother Aorta aneurysm Hypertension Hyperlipidemia Aunt/Uncle Aorta aneurysm Sister Bipolar 1 disorder Son Alcohol abuse Depression Diabetes Son Asthma Daughter Depression Daughter Depression Maternal Grandfather , in his 70s No problems noted. Paternal Grandfather No problems noted. Maternal Grandmother , in her 40s Brain aneurysm Paternal Grandmother , 82 Heart disease Hypertension Stroke Social History Smoking/Tobacco Use Status: Never Smoking risk assessment performed?: Yes Alcohol Intake: never Drug use: Never Caregiver/Support person: No Household members: spouse and children Housing: house Communication Needs: None Do you need help understanding health information?: Never current occupation: [employer]. Pets and animals: Yes Pets and animals: dog(s) and other Details: RABBIT Sexually active: Yes Do you think of yourself as: straight/heterosexual Current gender identity: female What is your relationship status?: How often do you talk on the phone with friends or family?: three or more times per week How often do you get together with friends or relatives?: once per week Do you belong to any clubs or organized social groups?: no Panel score (0-1 are the most socially isolated patients): 2 Duration: < 15 minutes/day Frequency: daily Augutsina/Lutheran: None Special augustina needs: No Seatbelt use: always Drive intox or ride w/intox truck driver salesperson: No Do you feel safe at home: Yes Do you feel safe in your relationship?: Yes Victim of physical abuse: No Victim of emotional abuse: No Victim of sexual abuse: No Would you like helpful sources: No Exam Narrative Exam Narrative: Constitutional: Alert and oriented x3. Appears stated age. Normal body habitus. Head: Normocephalic, no trauma. Eyes: Pupils PERRLA, Red reflex noted, EOM's intact. Eyelids symmetrical without lesions, discharge, or swelling. ENT: External ear normal to inspection, no mastoid TTP, swelling, or erythema, Nasal turbinates WNL, no nasal discharge. Normal dentition, Posterior pharynx WNL, no exudate. Chest: RRR, Normal S1, S2, distal pulses intact. Resp: Lungs clear to auscultation bilaterally, no wheezes, rales, or rhonchi. Abdomen: Soft, nondistended, tender to palpation left lower quadrant, and right upper quadrant. Positive Stern sign. No CVA tenderness. Musculoskeletal: Normal gait, 5/5 strength to all four extremities. Skin: No suspicious rashes or lesions. Capillary refill less than 2 sec. Neurologic: Cranial nerves II-XII intact. Alert and oriented x 3. DTR's intact. Hematologic/Lymphatic: No ecchymosis, no lymphadenopathy. Course Vital Signs Vital signs: Vital Signs Temperature 37.4 C 10/08/20 08:44 Pulse 118 H 10/08/20 08:44 Respiratory Rate 16 10/08/20 08:44 Blood Pressure 191/92 H 10/08/20 08:44 Pulse Oximetry 98 10/08/20 08:44 Temperature 37.4 C 10/08/20 08:44 Temperature Source Skin 10/08/20 08:44 Pulse 118 H 10/08/20 08:44 Respiratory Rate 16 10/08/20 08:44 Blood Pressure 191/92 H 10/08/20 08:44 Blood Pressure Position Supine 10/08/20 08:44 Pulse Oximetry 98 10/08/20 08:44 Oxygen Delivery Method Room Air 10/08/20 08:44 Oxygen Flow Rate 0 10/08/20 08:44 Pain Level 3 10/08/20 08:44
[2020-10-08] MEDS: Normal Saline Flush 10 ML SYR IVP (09:00)
--- NOTE | 2020-10-08 09:00 | DI.US_ITS ---
EXAM: US ABD PELV TRANSVAG NON-OB INDICATION: RUQ pain, LLQ pain COMPARISON: US US ECHOCARDIOGRAM from 08/03/2019 TECHNIQUE: Ultrasound abdomen performed using standard protocol FINDINGS: Abdominal ultrasound was performed according to the usual protocol. The liver is normal in size and shape. No focal hepatic lesion seen. There is no evidence of cholelithiasis or biliary dilatation. No gallbladder wall thickening or peric holecystic fluid collection. Pancreas appears intact as visualized. Spleen is unremarkable in appearance with no focal lesion. Kidneys are normal in size and shape. No renal mass, hydronephrosis, or nephrolithiasis. Abdominal aorta and IVC are of normal diameter. Scanning of the pelvis was performed with transabdominal and transvaginal scanning. The uterus has b een surgically removed. Left ovary contains 14 millimeter in diameter presumed dominant follicle. No solid mass or complex m ass identified in either ovary. Right ovary measures 26 x 14 x 13 millimeters and left ovary measure s 21 x 12 by 16 millimeters. No free fluid identified the pelvis. IMPRESSION: Negative abdominal ultrasound . Negative pelvic ultrasound.
[2020-10-08 09:06] LABS: Bilirubin Negative (Negative); Blood Negative (Negative); Clarity Clear (Clear); Glucose 500 mg/dL (Negative); Ketones 15 mg/dL (Negative); Leukocyte Esterase Negative (Negative); Nitrite Negative (Negative); Specific Gravity 1.025 (1.005-1.025); Urobilinogen 0.2 EU/dL (Up TO 0.2)
[2020-10-08] MEDS: Normal Saline 1,000 ML 125 ML IV (09:10)
[2020-10-08 09:12] LABS: Abs Immature Grans 0.03 10^3/uL (0.0-0.06); Absolute Basophil Count 0.03 10^3/uL (0.0-0.2); Absolute Eosinophil Count 0.05 10^3/uL (0.0-0.7); Absolute Lymphocyte Count 1.19 10^3/uL (1.2-3.4); Absolute Monocyte Count 0.75 10^3/uL (0.1-0.8); Absolute Neutrophil Count 9.28 10^3/uL (1.2-6.7); Basophils % 0.3; Eosinophils % 0.4; HGB 13.7 g/dL (11.2-15.7); Immature Grans % 0.3; Lymphocytes % 10.5; MCH 30.2 pg (27.0-33.0); MCHC 33.4 % (32.0-36.0); MCV 90.3 fL (80-95); MPV 9.7 fL (8.0-11.0); Monocytes % 6.6; Neutrophils % 81.9; Nucleated RBC 0 %; Platelet Count 234 10^3/uL (130-400); RBC 4.54 10^6/uL (3.93-5.22); RDW 12.5 % (11.7-14.6); RDW-SD 41.4 fL; WBC 11.33 10^3/uL (4.4-10.8)
[2020-10-08] MEDS: Ondansetron O.D.T. 4 MG TABEF PO (09:19)
[2020-10-08 09:25] LABS: ALT 26 U/L (14-59); AST 13 U/L (15-37); Albumin 3.8 g/dL (3.4-5.0); Alkaline Phosphatase 93 U/L (46-116); Anion Gap 9.9 mmol/L (3-11); BUN 19 mg/dL (7-18); Bilirubin, Total 0.5 mg/dL (0.2-1.0); CO2 27.1 mmol/L (21.0-32.0); CREATININE 0.9 mg/dL (0.55-1.02); Calcium 9.4 mg/dL (8.5-10.1); Chloride 102 mmol/L (98-107); Glucose 114 mg/dL (74-106); Lipase 136 U/L (73-393); Magnesium 2.1 mg/dL (1.8-2.4); Potassium 3.4 mmol/L (3.5-5.1); Sodium 139 mmol/L (136-145); Total Protein 7.7 g/dL (6.4-8.2)
[2020-10-08] MEDS: Ondansetron O.D.T. 4 MG TABEF, 3 TABS/BTL PO (11:15)
[2020-10-08 11:56] VITALS: BP 137/82; PULSE 80; RESP 16; TEMP 37.1; O2SAT 100
== END 2020-10-08 11:30 | disposition home or self-care (01) ==
PROVIDERS: Emergency Provider Registered Nurse Emergency; PCP Family Medicine
DX: N83.292 Other ovarian cyst, left side (principal)
CPT/HCPCS: 36415; 80053; 81025; 83690; 96360; 96361; 99284; 76700; 76830; 76856; 81003; 83036; 83735; 85025

== ENCOUNTER 2020-12-24 18:08 | Outpatient (CLI) | payer BC, SELFPAY ==
--- NOTE | 2020-12-24 10:30 | DI.RAD_ITS ---
Exam(s) XR CERVICAL SPINE COMP 4-5V EXAM: XR CERVICAL SPINE COMP 4-5V CLINICAL HISTORY: cervical pain and headaches, M54.2. TECHNIQUE: 2D digital imaging was performed. COMPARISON: No exams were available for comparison FINDINGS: BONES: No fracture or destructive lesion. Vertebral bodies are unremarkable. There are mild facet sunday nt degenerative changes. DISKS: Is mild narrowing of the anterior aspect of the C 5 6 and C6-7 disc spaces. There are small e ndplate osteophytes at these levels the remaining intervertebral disc spaces are maintained. There i s no significant neural foraminal narrowing. ALIGNMENT: Cervical spinal alignment is within normal limits. There is mild straightening of the nor mal cervical lordosis. The odontoid and atlantoaxial articulations are normal. SOFT TISSUE: Normal. The lung apices are clear. IMPRESSION: Mild degenerative disc changes at C5-6 and C6-7 DATA REPOSITORY: RADIATION DOSE DELIVERED:
== END 2020-12-24 18:28 ==
PROVIDERS: PCP Family Medicine; Visit Provider Family Medicine
DX: M54.2 Cervicalgia (principal); R51.9 Headache, unspecified; M47.812 Spondylosis without myelopathy or radiculopathy, cervical region; M50.322 Other cervical disc degeneration at C5-C6 level; M50.323 Other cervical disc degeneration at C6-C7 level
CPT/HCPCS: 72050

== ENCOUNTER 2021-01-01 03:16 | Outpatient (CLI) | payer BC, SELFPAY ==
[2021-01-01 13:30] LABS: Calculated LDL 147 mg/dL (<100); Cholesterol 208 mg/dL (<200); HDL Cholesterol 44 mg/dL (40-60); Triglyceride 85 mg/dL (<150)
[2021-01-01 14:11] LABS: BUN 19 mg/dL (7-18); CREATININE 0.7 mg/dL (0.55-1.02); Calcium 8.9 mg/dL (8.5-10.1); Glucose 79 mg/dL (74-106)
[2021-01-01 14:12] LABS: ALT 37 U/L (14-59); AST 15 U/L (15-37); Albumin 3.8 g/dL (3.4-5.0); Alkaline Phosphatase 98 U/L (46-116); Bilirubin, Total 0.3 mg/dL (0.2-1.0); Chloride 105 mmol/L (98-107); Potassium 4.3 mmol/L (3.5-5.1); Sodium 142 mmol/L (136-145); Total Protein 6.8 g/dL (6.4-8.2)
== END 2021-01-01 03:17 | disposition home or self-care (01) ==
LOC: LOS 03:16
PROVIDERS: PCP Family Medicine; Visit Provider Family Medicine
DX: R73.03 Prediabetes (principal)
CPT/HCPCS: 36415; 80053; 80061; 84443

== ENCOUNTER 2021-03-03 22:15 | Outpatient (REF) | payer BC, SELFPAY ==
[2021-03-03 22:56] LABS: D-Dimer 416 ng/mlFEU (<500)
== END 2021-03-03 22:16 | disposition home or self-care (01) ==
LOC: LBN 22:15
PROVIDERS: PCP Family Medicine; Visit Provider Nurse Practitioner Family
DX: M79.604 Pain in right leg (principal)
CPT/HCPCS: 85379

== ENCOUNTER 2021-03-14 10:17 | Outpatient (CLI) | payer BC, SELFPAY ==
[2021-03-15 18:19] LABS: COVID-19 RT-PCR UVMMC Result Negative (Negative)
== END 2021-03-14 10:18 | disposition home or self-care (01) ==
LOC: LBO 10:17
PROVIDERS: PCP Family Medicine; Visit Provider Family Medicine
DX: Z20.822 Contact with and (suspected) exposure to COVID-19 (principal)
CPT/HCPCS: U0003; 87070

== ENCOUNTER 2021-03-29 17:13 | Emergency (ER) | payer BC, SELFPAY ==
[2021-03-29] VITALS (25 sets, daily range): BP systolic 166; BP diastolic 89; PULSE 77–98; RESP 13–27; TEMP 36.7; O2SAT 95–100
--- NOTE | 2021-03-29 17:15 | RT.EKG_ITS ---
APPROVED REPORT Exam: Resting ECG Reason for Exam: chest pain Patient Location: E HR:90 bpm ECG Measurements Heart Rate 90 AXIS CO 163 P 29 QRSd 91 QRS 71 QT 364 T 47 QTc 445 Conclusion Sinus rhythm...normal P axis, V-rate 60- 99 Probable left atrial enlargement...P >50mS, <-0.10mV V1 Physician: Rate 90, sinus rhythm, intervals unremarkable, no significant ST elevations or depressions , no evidence of STEMI.
--- NOTE | 2021-03-29 17:33 | W.ED.GENAD ---
Discharge Plan Disposition Patient Disposition: HOME Condition: Good Discharge Details Clinical Impression: Chest pain Primary Care Provider: Katheryn Velasquez ED Provider: Yoan Fournier [place] Meds and New Rx's Prescriptions: Continued cholecalciferol (vitamin D3) 250 mcg (10,000 unit) capsule 250 mcg PO DAILY RF: 0 omeprazole 40 mg capsule,delayed release(DR/EC) 40 mg PO BID Qty: 90 RF: 3 lisinopril-hydrochlorothiazide 10-12.5 mg tablet 1 tab PO DAILY Qty: 90 RF: 4 acetaminophen [Tylenol Extra Strength] 500 mg tablet 1,000 mg PO BID PRNRF: 0 Discharge Instructions Instructions: Chest Pain (ED) Additional Instructions: You will be contacted for your stress test appointment. If you notice any worsening of your symptoms, or any new symptoms such as vomiting, diarrhea, fever, chills, shortness of breath, chest pain, numbness, weakness, or fainting , please return immediately to the emergency department for reevaluation. Please follow up with your primary care provider as soon as possible for reassessment and reevaluation. As always, it was a pleasure participating in your medical care today. Referrals: Katheryn Velasquez MD, DC [Primary Care Provider] - Medical Decision Making <Jerson Nolasco DO - Last Filed: 03/29/21 19:55> 51-year-old female with past medical history of peptic ulcer disease, hypertension, irritable bowel syndrome, previous right-sided breast cancer, and subsequent vasectomy 2 years ago, with no chemotherapy, or radiation who presents today for evaluation of chest pain. Patient states that for the last 2 days she has had intermittent epigastric discomfort, she felt that it was indigestion, however over the last 24 to 36 hours she has noticed intermittent left-sided shoulder pain which she describes as achy in nature. She has also noticed an increase in her blood pressure. The symptoms of the shoulder pain and epigastric discomfort occur both with rest and activity. However all of that appears to be relieved by rest. She denies any tearing or ripping sensation. She denies any pleuritic chest pain. Denies PE risk factors such as recent long car rides, immobilization, recent surgery, prior history of DVT or PE, family history of PE or DVT, morbid obesity, exogenous estrogen and smoking, hemoptysis. Patient does admit to a strong family history of cardiac disease but has not had any cardiac disease herself. She does not smoke. She also does admit to a mild frontal achy headache. She denies it being the worst headache of her life. No other complaints at this time. No other modifying factors Exam is relatively unremarkable. Vital signs stable, pulses equal. Currently pain is minimal per patient. She has no pleuritic chest pain. EKG shows no evidence of STEMI. We will get a D-dimer to evaluate for PE potential, give aspirin, give a GI cocktail, monitor closely and reassess. We will get a proBNP to evaluate for evidence of cardiac strain or fluid overload. Bedside ultrasound was performed, limited exam shows no pericardial effusion, good concentric movement, no significant abnormality or evidence of dilatation 7:52 PM Laboratory work-up is returned unremarkable, initial troponin normal, D-dimer slightly elevated and positive. CTA was ordered and is negative for acute process. Laboratory work-up otherwise stable. BNP normal suggesting no signs of fluid overload or heart strain. Lipase normal. Patient's chest pain slightly improved still around a 2 out of 10. Mild in nature. GI cocktail made no change, Toradol and aspirin made no change. No arm pain. Headache slightly improved. No meningeal signs. Vital signs remained notably stable. We will set up for an outpatient stress test. We are pending repeat troponin and repeat EKG. Patient's pain at this time appears inconsistent with ACS. EKG 17: 24 Rate 90, sinus rhythm, intervals unremarkable, no significant ST elevations or depressions, no evidence of STEMI. <Yoan Fournier MD - Last Filed: 03/29/21 21:05> Patient had presented and initially evaluated by Dr. Nolasco for chest pain. Initial work-up unremarkable with EKG, first troponin, other labs and CTA of chest negative. Patient signed out for repeat EKG and troponin. Repeat EKG is unchanged. Second troponin negative. Outpatient stress test has been ordered by Dr. Nolasco. Patient will be discharged home. Return to ED for any new or worsening pain or persistent cough. Stress test as outpatient as planned follow-up with PCP once complete. Lab Data Lab results reviewed: Yes I reviewed the patient's lab results. ECG Data Attestation: I personally reviewed and interpreted this ECG (s) as follows: Prior ECG tracings: available for review Interpretation: unchanged HPI <Jerson R Constance - Last Filed: 03/29/21 19:55> General Date/Time Provider Initiated Documentation: 03/29/21 17:14. HPI Narrative: 51-year-old female with past medical history of peptic ulcer disease, hypertension, irritable bowel syndrome, previous right-sided breast cancer, and subsequent vasectomy 2 years ago, with no chemotherapy, or radiation who presents today for evaluation of chest pain. Patient states that for the last 2 days she has had intermittent epigastric discomfort, she felt that it was indigestion, however over the last 24 to 36 hours she has noticed intermittent left-sided shoulder pain which she describes as achy in nature. She has also noticed an increase in her blood pressure. The symptoms of the shoulder pain and epigastric discomfort occur both with rest and activity. However all of that appears to be relieved by rest. She denies any tearing or ripping sensation. She denies any pleuritic chest pain. Denies PE risk factors such as recent long car rides, immobilization, recent surgery, prior history of DVT or PE, family history of PE or DVT, morbid obesity, exogenous estrogen and smoking, hemoptysis. Patient does admit to a strong family history of cardiac disease but has not had any cardiac disease herself. She does not smoke. She also does admit to a mild frontal achy headache. She denies it being the worst headache of her life. No other complaints at this time. No other modifying factors Related Data Home Medications Medication Instructions Recorded Confirmed acetaminophen 500 mg tablet 1,000 mg PO BID PRN 04/06/19 03/03/21 lisinopril 10 1 tab PO DAILY #90 tab 04/09/20 03/03/21 mg-hydrochlorothiazide 12.5 mg tablet omeprazole 40 mg capsule,delayed 40 mg PO BID #90 cap 04/09/20 03/03/21 release cholecalciferol (vitamin D3) 250 250 mcg PO DAILY 06/27/20 03/03/21 mcg (10,000 unit) capsule Previous Rx's Medication Instructions Recorded lisinopril 10 1 tab PO DAILY #90 tab 04/09/20 mg-hydrochlorothiazide 12.5 mg tablet omeprazole 40 mg capsule,delayed 40 mg PO BID #90 cap 04/09/20 release Allergies Allergy/AdvReac Type Severity Reaction Status Date / Time topiramate [From Topamax] AdvReac Mental Verified 03/29/21 17:25 changes General Stated Complaint: Chest Pain KEVNI: 2 Review of Systems <Jerson Nolasco DO - Last Filed: 03/29/21 19:55> All systems reviewed & are unremarkable except as noted in HPI and below PFSH <Jerson Nolasco DO - Last Filed: 03/29/21 19:55> Medical History BV (bacterial vaginosis) Rx with Flagyl 01/06/16 Chronic daily headache (12/24/15) Degeneration of cervical intervertebral disc 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 lab-normal; PFT-? asthma-decreased FEV1/FVC; no response to albuterol; increased diffusion capacity Surgical History EGD - MAC (08/13/14) DR. MCDANIEL Endometrial Ablation (~2011) Endometrial Biopsy (08/26/11) Ligation of fallopian tube S/P right mastectomy Vaginal hysterectomy (04/22/16) Family History Father Aorta aneurysm Hypertension Hyperlipidemia Cancer of kidney 1/5 of kidney removed Heart disease Alcohol abuse Mother Aorta aneurysm Hypertension Hyperlipidemia Aunt/Uncle Aorta aneurysm Sister Bipolar 1 disorder Son Alcohol abuse Depression Diabetes Son Asthma Daughter Depression Daughter Depression Maternal Grandfather , in his 70s No problems noted. Paternal Grandfather No problems noted. Maternal Grandmother , in her 40s Brain aneurysm Paternal Grandmother , 82 Heart disease Hypertension Stroke Social History Smoking/Tobacco Use Status: Never Smoking risk assessment performed?: Yes Alcohol Intake: never Drug use: Never Caregiver/Support person: No Household members: spouse and children Housing: house Communication Needs: None Do you need help understanding health information?: Never current occupation: [employer]. Pets and animals: Yes Pets and animals: dog(s) and other Details: RABBIT Sexually active: Yes Do you think of yourself as: straight/heterosexual Current gender identity: female What is your relationship status?: How often do you talk on the phone with friends or family?: three or more times per week How often do you get together with friends or relatives?: once per week Do you belong to any clubs or organized social groups?: no Panel score (0-1 are the most socially isolated patients): 2 Duration: < 15 minutes/day Frequency: daily Augustina/Alevism: None Special augustina needs: No Seatbelt use: always Drive intox or ride w/intox driver merchandiser: No Do you feel safe at home: Yes Do you feel safe in your relationship?: Yes Victim of physical abuse: No Victim of emotional abuse: No Victim of sexual abuse: No Would you like helpful sources: No Exam <Jerson Nolasco DO - Last Filed: 03/29/21 19:55> Narrative Exam Narrative: 1.Const: Well-nourished, Well-developed, appearing stated age 2.Eyes: PERRL, no conjunctival injection, and symmetrical lids. 3.ENT: Atraumatic external nose and ears. Moist MM. Neck: Symmetric, trachea midline, No thyromegaly. Patient demonstrates good movement of cervical neck. There is no nuchal rigidity, no nuchal tenderness. Patient is able to flex the neck without any difficulty or significant pain. Negative Kernig's and Brudzinski sign. 4.CVS: +S1/S2, No murmurs or gallops. Peripheral pulses 2+ and equal in all extremities. Brisk capillary refill in all extremities. Right-sided mastectomy. Radial pulses +2 bilaterally 5.RESP: Unlabored respiratory effort. Clear to auscultation bilaterally. No wheezes rales or rhonchi 6.GI: Soft, Nontender/Nondistended, No hepatosplenomegaly. No guarding or rebound. 7.MSK: Normocephalic/Atraumatic, Extremities w/o deformity or ttp No cyanosis or clubbing, Normal movement of all extremities 8.Skin: Warm, Dry. No rashes or lesions. 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 Sensation grossly intact, no focal neurologic deficits. 10.Psych: (AAO) x3. Appropriate mood and affect Course <Jerson Nolasco DO - Last Filed: 03/29/21 19:55> Vital Signs Vital signs: Vital Signs Temperature 36.7 C 03/29/21 17:21 Pulse 98 H 03/29/21 17:21 Respiratory Rate 13 03/29/21 17:21 Blood Pressure 166/89 H 03/29/21 17:21 Pulse Oximetry 98 03/29/21 17:21 Temperature 36.7 C 03/29/21 17:21 Temperature Source Temporal Artery Scan 03/29/21 17:21 Pulse 98 H 03/29/21 17:21 Respiratory Rate 13 03/29/21 17:21 Respiratory Effort 03/29/21 17:26 Blood Pressure 166/89 H 03/29/21 17:21 Blood Pressure Position Supine 03/29/21 17:21 Pulse Oximetry 98 03/29/21 17:21 Oxygen Delivery Method Room Air 03/29/21 17:21 Oxygen Flow Rate 0 03/29/21 17:21 Sign Out <Jerson Nolasco DO - Last Filed: 03/29/21 19:55> Sign Out Data: Sign Out Comment: Follow-up on troponin and EKG Last updated by Jerson Nolasco DO at 03/29/21 20:03
[2021-03-29] MEDS: Aspirin 81 MG CHEW 324 MG CH (17:40)
[2021-03-29 17:42] LABS: Abs Immature Grans 0.02 10^3/uL (0.0-0.06); Absolute Basophil Count 0.03 10^3/uL (0.0-0.2); Absolute Eosinophil Count 0.27 10^3/uL (0.0-0.7); Absolute Lymphocyte Count 2.15 10^3/uL (1.2-3.4); Absolute Monocyte Count 0.48 10^3/uL (0.1-0.8); Absolute Neutrophil Count 5.46 10^3/uL (1.2-6.7); Basophils % 0.4; Eosinophils % 3.2; HCT 40.2 % (36.0-46.0); HGB 13.1 g/dL (11.2-15.7); Immature Grans % 0.2; Lymphocytes % 25.6; MCH 29.6 pg (27.0-33.0); MCHC 32.6 % (32.0-36.0); MCV 90.7 fL (80-95); MPV 10.2 fL (8.0-11.0); Monocytes % 5.7; Neutrophils % 64.9; Nucleated RBC 0 %; Platelet Count 239 10^3/uL (130-400); RBC 4.43 10^6/uL (3.93-5.22); RDW-SD 43.3 fL; WBC 8.41 10^3/uL (4.4-10.8)
[2021-03-29 17:56] LABS: PTT Activated 23.1 sec (21.0-27.5)
[2021-03-29 18:06] LABS: ALT 27 U/L (14-59); AST 20 U/L (15-37); Albumin 3.9 g/dL (3.4-5.0); Alkaline Phosphatase 110 U/L (46-116); Anion Gap 9.2 mmol/L (3-11); BUN 19 mg/dL (7-18); Bilirubin, Total 0.3 mg/dL (0.2-1.0); CO2 26.8 mmol/L (21.0-32.0); CREATININE 0.9 mg/dL (0.55-1.02); Calcium 9.4 mg/dL (8.5-10.1); Chloride 103 mmol/L (98-107); Glucose 101 mg/dL (74-106); Lipase 182 U/L (73-393); NT-proBNP 41 pg/mL (<300); Potassium 3.8 mmol/L (3.5-5.1); Sodium 139 mmol/L (136-145); Total Protein 7.5 g/dL (6.4-8.2)
[2021-03-29 18:10] LABS: Troponin I < 0.05 ng/mL (<0.06)
[2021-03-29 18:12] LABS: D-Dimer 519 ng/mlFEU (<500)
--- NOTE | 2021-03-29 18:15 | DI.CT_ITS ---
Exam(s) CT CHEST PE CTA EXAM: CT CHEST PE CTA CLINICAL HISTORY: chest pain, elevated dimer, r/o pe. TECHNIQUE: Imaging Protocol: CT angiography of the chest was performed using pulmonary embolus anjana col. Multi planar reconstructions were performed. CONTRAST MATERIAL: Intravenous: Omnipaque 350 Contrast volume: 100 cc COMPARISON: No exams were available for comparison FINDINGS: CHEST: PULMONARY ARTERIES: There are no intraluminal filling defects to suggest acute pulmonary emboli. LUNGS: There are no infiltrates nor evidence of pulmonary infarction.. There are no pleural effusions . MEDIASTINUM: There is no hilar nor mediastinal adenopathy. Visualized thyroid unremarkable. CARDIAC: Heart size is upper normal. There is no pericardial effusion.Caliber of the thoracic aorta is within normal limits. There is no significant shift of the interventricular septum. PARTIALLY VISUALIZED UPPERMOST ABDOMEN: No obvious findings OSSEOUS: No significant osseous lesions.. IMPRESSION: 1. No evidence of acute pulmonary emboli. No evidence of pulmonary infarction.No pleural effusions. 2. No intrathoracic adenopathy. 3. Heart size normal. No pericardial effusion. No evidence of aortic dissection. RADIATION DOSE DELIVERED: 463.13mGy.cm Total DLP DATA REPOSITORY: All CT scans at this facility are submitted to the National Radiology Data Registry (NRDR) Dose Index Registry (DIR) with the [employer] (ACR). RADIATION OPTIMIZATION: All CT scans at this facility use at least one of these dose optimization te chniques: automated exposure control; mA and/or kV adjustment per patient size (includes targeted exa ms where dose is matched to clinical indication); or iterative reconstruction.
[2021-03-29] MEDS: Omnipaque 350 MG/ML 100 ML BTL IJ (19:07)
[2021-03-29] MEDS: Normal Saline Flush 10 ML SYR IVP (19:08)
--- NOTE | 2021-03-29 19:32 | DI.VRAD_ITS ---
PROCEDURE INFORMATION: Exam: CTA Chest With Contrast Exam date and time: 03/29/2021 6:22 PM Age: 51 years old Clinical indication: Pain; Left-sided TECHNIQUE: Imaging protocol: Computed tomographic angiography of the chest with contrast. 3D rendering (Not supervised by radiologist): MIP and/or 3D reconstructed images were created by the technologist. COMPARISON: CR CHEST 2 VIEWS PA,LAT 01/12/2017 9:35 PM FINDINGS: Pulmonary arteries: Normal. No pulmonary emboli. Aorta: Unremarkable. No aortic aneurysm. No aortic dissection. Lungs: Unremarkable. No consolidation. No masses. Pleural spaces: Unremarkable. No pneumothorax. No pleural effusion. Heart: Unremarkable. No cardiomegaly. No pericardial effusion. Lymph nodes: Unremarkable. No enlarged lymph nodes. Bones/joints: Unremarkable. No acute fracture. Soft tissues: Prior right mastectomy. Negative for chest wall mass or fluid collection. IMPRESSION: 1. Negative for pulmonary embolism. 2. Negative for significant pulmonary consolidation or ground-glass opacity. Dictated and Authenticated by: Rafael Jaffe MD. Ordering:MERA Arthur MD
[2021-03-29] MEDS: Ketorolac 15 MG/ML VIAL IVP (19:34)
--- NOTE | 2021-03-29 19:45 | RT.EKG_ITS ---
APPROVED REPORT Exam: Resting ECG Reason for Exam: chest pain Patient Location: E HR:74 bpm ECG Measurements Heart Rate 74 AXIS WI 201 P 30 QRSd 89 QRS 64 QT 390 T 38 QTc 433 Conclusion Sinus rhythm...normal P axis, V-rate 60- 99 Probable left atrial enlargement...P >50mS, <-0.10mV V1 I have reviewed and interpreted ECG and agree with software generated interpretation. There are no significant changes compared to prior EKG performed on 03/29/2021 at 17:24.
[2021-03-29 20:59] LABS: Troponin I < 0.05 ng/mL (<0.06)
== END 2021-03-29 21:25 | disposition home or self-care (01) ==
PROVIDERS: Student in an Organized Health Care Education/Training Program; Emergency Provider Emergency Medicine; PCP Family Medicine
DX: R07.9 Chest pain, unspecified (principal); R10.13 Epigastric pain; R79.89 Other specified abnormal findings of blood chemistry
CPT/HCPCS: 36415; 71275; 80053; 83690; 93005; 96374; 99285; 83880; 84484; 85025; 85379; 85610; 85730; 93010; 99284; J1885; J3490

== ENCOUNTER 2021-04-01 03:08 | Outpatient (CLI) | payer BC, SELFPAY ==
--- NOTE | 2021-04-01 | ETT_ITS ---
APPROVED REPORT Exam: Exercise Treadmill Patient Location: Out-Patient Room/Bed: Stress Nurse: Kristen Merlos RN Ordering Provider:KELLY CUTLER, Contact Number: [phone] BMI: 33.12 Baseline Rhythm: Sinus Rhythm Comment: Inverted T waves aVL Indications: Chest pain Medical History Medical History: Hypertension, hyperlipidemia, prediabetes, obesity, palpitations, GERD, near syncope , depression Cardiac Medications: Lisinopril-HCTZ, omeprazole Allergies: Topiramate Cardiac Risk Factors: Hypertension, hyperlipidemia, prediabetes, obesity, family hx Previous Cardiac Procedures: None Pretest Chest Pain Characteristics: None Exercise History: Sedentary Physical Disabilities: None Lung Sounds: Clear to auscultation Heart Sounds: Regular Stress Test Details Test: Exercise stress testing was performed using a Jai protocol. Rest Stress HR Resting HR Supine: 80 bpm Max Heart Rate (APMHR): 170 bpm Resting HR Standin bpm Target HR (85% APMHR): 144 bpm Max HR Achieved: 164 bpm % of APMHR: 96 Recovery HR: 95 bpm HR response to stress: Normal HR response to stress BP Resting BP Supine: 142/84 mmHg Resting BP Standin/88 mmHg Max BP: 170/84 mmHg Recovery BP: 130/78 mmHg BP response to stress: Normal blood pressure response to stress. ECG Resting ECG: Sinus Rhythm Ectopy: None Comment: Inverted T waves aVL Stress ECG: Sinus Tachycardia ST Change: No significant ST segment changes noted Arrhythmia: None Comment: Inverted T waves aVL Recovery ECG: Sinus Rhythm Recovery ST Change: No significant ST segment changes noted Recovery Arrhythmia: None Comment: Inverted T waves aVL Clinical Reason for Termination: Fatigue Stress Symptoms: General Fatigue Exercise duration: 8 min58 sec Highest Stage Reached: Stage 3: 3.4 mph at 14% grade. Exercise capacity: 10.16 METs [place] Treadmill Score: 8.5 Rate Pressure Product: 10023 Stress ECG Conclusion 1. The resting electrocardiogram was normal 2. Patient exercised on the Jai protocol and completed a workload of 10.16 METS, stopping due to fa tigue 3. Normal heart rate and blood pressure response to exercise. Patient achieved 96% of predicted hear t rate for age 4. Electrocardiographically there was no evidence of myocardial ischemia 5. There were no significant dysrhythmias [place] Treadmill Score is 8.5 which is Low risk.
== END 2021-04-01 03:28 ==
PROVIDERS: PCP Family Medicine; Visit Provider Student in an Organized Health Care Education/Training Program
DX: R07.9 Chest pain, unspecified (principal); I10 Essential (primary) hypertension; E78.5 Hyperlipidemia, unspecified; R00.2 Palpitations; R73.03 Prediabetes; E66.9 Obesity, unspecified; Z82.49 Family history of ischemic heart disease and other diseases of the circulatory system
CPT/HCPCS: 93017

== ENCOUNTER 2021-05-24 05:03 | Emergency (ER) | payer BC, SELFPAY ==
--- NOTE | 2021-05-24 05:00 | RT.EKG_ITS ---
APPROVED REPORT Exam: Resting ECG Reason for Exam: dizzy Patient Location: E HR:77 bpm ECG Measurements Heart Rate 77 AXIS RI 164 P 40 QRSd 94 QRS 72 QT 375 T 37 QTc 424 Conclusion Sinus rhythm...normal P axis, V-rate 60- 99 I have reviewed and interpreted ECG and agree with software generated interpretation. Normal Electrocardiogram
[2021-05-24 05:14] VITALS: BP 145/86; PULSE 83; RESP 18; TEMP 36.4; O2SAT 98
[2021-05-24 05:37] VITALS: BP 138/87; PULSE 77; O2SAT 98
[2021-05-24 05:38] VITALS: O2SAT 98
[2021-05-24 05:40] VITALS: O2SAT 98
--- NOTE | 2021-05-24 05:45 | ED.GENADUL_ITS ---
Discharge Plan Disposition Patient Disposition: HOME Condition: Improving Discharge Details Clinical Impression: Headache Primary Care Provider: Katheryn Velasquez ED Provider: Yoan Fournier [place] Meds and New Rx's Prescriptions: Continued cholecalciferol (vitamin D3) 250 mcg (10,000 unit) capsule 250 mcg PO DAILY RF: 0 5-hydroxytryptophan (5-HTP) 100 mg capsule 100 mg PO DAILY RF: 0 omeprazole 40 mg capsule,delayed release(DR/EC) 40 mg PO DAILY Qty: 90 RF: 3 lisinopril-hydrochlorothiazide 10-12.5 mg tablet 1 tab PO DAILY Qty: 90 RF: 4 acetaminophen [Tylenol Extra Strength] 500 mg tablet 1,000 mg PO BID PRNRF: 0 Discharge Instructions Instructions: General Headache (ED) Additional Instructions: Rest and hydrate over the rest of the weekend. Follow-up with primary care next week if continued sinus symptoms. Return to ED for fever, neurologic change, other concerns. Medical Decision Making Patient presenting with nausea, headache, lightheadedness in the setting of sinus/nasal congestion. Is not endorsing vertigo. Has a normal neurologic exam. Has prior history of headaches. Plan IV fluids and Compazine. Check CBC and BMP. Patient laboratory studies are normal. Patient responded to Compazine with resolution of headache and nausea. We will plan on finishing fluids and discharge to follow-up with primary care next week if continued sinus problems. Return to ED for fever, neurologic change, other concerns. Lab Data Lab results reviewed: Yes I reviewed the patient's lab results. ECG Data Attestation: I personally reviewed and interpreted this ECG (s) as follows: Prior ECG tracings: available for review Interpretation: see EKG HPI General Mode of arrival: ambulatory . Date/Time Provider Initiated Documentation: 05/24/21 05:22 . Limitations to Documentation: no limitations . Information obtained by: patient, RN notes reviewed and old records reviewed . HPI Narrative: Patient presents to ED with complaint of sinus congestion, headache, lightheadedness. Patient reports having a head cold for a few days now. She has been using Sudafed. She has a mild cough with a lot of sinus and nasal congestion. She denies fever. She denies chest pain or shortness of breath. She has some nausea that developed after worsening headache tonight. States that she feels lightheaded and weak. Denies vertigo. Denies neurologic change. No difficulty with gait. States she just does not feel right and came in for evaluation. Fully vaccinated against COVID. Related Data Home Medications Medication Instructions Recorded Confirmed acetaminophen 500 mg tablet 1,000 mg PO BID PRN 04/06/19 05/24/21 lisinopril 10 1 tab PO DAILY #90 tab 04/09/20 05/24/21 mg-hydrochlorothiazide 12.5 mg tablet cholecalciferol (vitamin D3) 250 250 mcg PO DAILY 06/27/20 05/24/21 mcg (10,000 unit) capsule 5-hydroxytryptophan (5-HTP) 100 mg 100 mg PO DAILY 04/03/21 05/24/21 capsule omeprazole 40 mg capsule,delayed 40 mg PO DAILY #90 cap 04/03/21 05/24/21 release Previous Rx's Medication Instructions Recorded lisinopril 10 1 tab PO DAILY #90 tab 04/09/20 mg-hydrochlorothiazide 12.5 mg tablet omeprazole 40 mg capsule,delayed 40 mg PO DAILY #90 cap 04/03/21 release Allergies Allergy/AdvReac Type Severity Reaction Status Date / Time topiramate [From Topamax] AdvReac Mental Verified 05/24/21 05:19 changes General Stated Complaint: Headache KEVIN: 3 Review of Systems Narrative: As documented in HPI otherwise negative as below. Const: no fever, chills Resp: no SOB, pleuritic pain CV: no CP, diaphoresis, edema, syncope GI: no vomiting, diarrhea; abdominal pain unchanged and being worked up Neuro: no numbness, focal weakness, confusion REPLACED BY [facility] Medical History BV (bacterial vaginosis) Rx with Flagyl 01/06/16 Chronic daily headache (12/24/15) Degeneration of cervical intervertebral disc 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 lab-normal; PFT-? asthma-decreased FEV1/FVC; no response to albuterol; increased diffusion capacity Surgical History EGD - MAC (08/13/14) DR. MCDANIEL Endometrial Ablation (~2011) Endometrial Biopsy (08/26/11) Ligation of fallopian tube S/P right mastectomy Vaginal hysterectomy (04/22/16) Family History Father Aorta aneurysm Hypertension Hyperlipidemia Cancer of kidney 1/5 of kidney removed Heart disease Alcohol abuse Mother Aorta aneurysm Hypertension Hyperlipidemia Aunt/Uncle Aorta aneurysm Sister Bipolar 1 disorder Son Alcohol abuse Depression Diabetes Son Asthma Daughter Depression Daughter Depression Maternal Grandfather , in his 70s No problems noted. Paternal Grandfather No problems noted. 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 Pets and animals: Yes Pets and animals: dog(s) and other Details: RABBIT Sexually active: Yes Do you think of yourself as: straight/heterosexual Current gender identity: female What is your relationship status?: How often do you talk on the phone with friends or family?: three or more times per week How often do you get together with friends or relatives?: once per week Do you belong to any clubs or organized social groups?: no Panel score (0-1 are the most socially isolated patients): 2 Duration: < 15 minutes/day Frequency: daily Augustina/Judaism: None Special augustina needs: No Seatbelt use: always Drive intox or ride w/intox superintendent drivers: No Do you feel safe at home: Yes Do you feel safe in your relationship?: Yes Victim of physical abuse: No Victim of emotional abuse: No Victim of sexual abuse: No Would you like helpful sources: No Exam Narrative Exam Narrative: Const: WDWN female in NAD. HEENT: NC/AT. Normal facial exam. TMs normal. OP normal. Eyes: Normal conjunctiva and sclera. PERRL and EOMI. Neck: Supple. Trachea midline. Lungs: Normal respiratory effort. Lungs are clear. Cor: RRR without murmur/gallop. Good radial pulses. GI: Soft. NT/ND. Neuro: A+O x 3. Normal speech, mentation, gait. Cranial nerves II - XII grossly intact. No gross motor or sensory deficit. Ext: No C/C/E. Skin: Warm and dry without rash. Course Vital Signs Vital signs: Vital Signs Temperature 97.5 F L 05/24/21 05:14 Pulse 83 05/24/21 05:14 Respiratory Rate 18 05/24/21 05:14 Blood Pressure 145/86 H 05/24/21 05:14 Pulse Oximetry 98 05/24/21 05:14 Temperature 97.5 F L 05/24/21 05:14 Temperature Source Skin 05/24/21 05:14 Pulse 83 05/24/21 05:14 Respiratory Rate 18 05/24/21 05:14 Respiratory Effort Non-Labored 05/24/21 05:21 Blood Pressure 145/86 H 05/24/21 05:14 Blood Pressure Position Supine 05/24/21 05:14 Pulse Oximetry 98 05/24/21 05:14 Oxygen Delivery Method Room Air 05/24/21 05:14 Oxygen Flow Rate 0 05/24/21 05:14 Pain Level 10 05/24/21 05:14
[2021-05-24 05:46] VITALS: BP 138/86; PULSE 80; O2SAT 98
[2021-05-24] MEDS: Prochlorperazine 10 MG/2 ML VIAL IVP (06:03)
[2021-05-24] MEDS: Normal Saline 1,000 ML 1000 ML IV (06:05)
[2021-05-24 06:07] LABS: Abs Immature Grans 0.04 10^3/uL (0.0-0.06); Absolute Basophil Count 0.04 10^3/uL (0.0-0.2); Absolute Eosinophil Count 0.17 10^3/uL (0.0-0.7); Absolute Lymphocyte Count 1.75 10^3/uL (1.2-3.4); Absolute Monocyte Count 0.48 10^3/uL (0.1-0.8); Absolute Neutrophil Count 5.07 10^3/uL (1.2-6.7); Basophils % 0.5; Eosinophils % 2.3; HCT 40.4 % (36.0-46.0); HGB 13.3 g/dL (11.2-15.7); Immature Grans % 0.5; Lymphocytes % 23.2; MCH 29.8 pg (27.0-33.0); MCHC 32.9 % (32.0-36.0); MCV 90.6 fL (80-95); MPV 10.4 fL (8.0-11.0); Monocytes % 6.4; Neutrophils % 67.1; Nucleated RBC 0 %; Platelet Count 211 10^3/uL (130-400); RBC 4.46 10^6/uL (3.93-5.22); RDW 12.9 % (11.7-14.6); RDW-SD 42.6 fL; WBC 7.55 10^3/uL (4.4-10.8)
[2021-05-24 06:17] LABS: Anion Gap 10.3 mmol/L (3-11); BUN 14 mg/dL (7-18); CO2 27.7 mmol/L (21.0-32.0); CREATININE 0.8 mg/dL (0.55-1.02); Calcium 9.1 mg/dL (8.5-10.1); Chloride 105 mmol/L (98-107); Glucose 100 mg/dL (74-106); Potassium 3.7 mmol/L (3.5-5.1); Sodium 143 mmol/L (136-145)
[2021-05-24 07:21] VITALS: BP 150/95; PULSE 87; RESP 16; TEMP 36.8; O2SAT 99
== END 2021-05-24 07:28 | disposition home or self-care (01) ==
PROVIDERS: Emergency Provider Emergency Medicine; PCP Family Medicine
DX: R42 Dizziness and giddiness (principal); R51.9 Headache, unspecified; R11.0 Nausea; R09.81 Nasal congestion
CPT/HCPCS: 36415; 80048; 93005; 96361; 96374; 99284; 85025; 93010; J0780

== ENCOUNTER 2021-06-20 00:45 | Outpatient (CLI) | payer BC, SELFPAY ==
--- NOTE | 2021-06-20 07:00 | DI.CT_ITS ---
Exam(s) CT ABDOMEN PELVIS W EXAM: CT ABDOMEN PELVIS W INDICATION: left flank pain,DIVERTICULOSIS,OVARIAN CYST,K57.90,N83.209. COMPARISON: CT CT CHEST PE CTA from 03/29/2021 TECHNIQUE: FINDINGS: CT examination of the abdomen and pelvis was performed with a bolus infusion of 100 cc of Omnipaque 3 50. Images obtained through the lung bases are unremarkable. The liver is unremarkable in appearance. Gallbladder and bile ducts are CT normal. Pancreas appears normal. Spleen is unremarkable in appearance. Adrenals appear normal. The kidneys are unremarkable with no evidence of hydronephrosis, nephrolithiasis, or renal mass.. Ur inary bladder unremarkable. Abdominal aorta is of normal diameter and no major vascular abnormality is seen. No abdominal wall hernia. No abdominal or pelvic adenopathy. Small bilateral ovarian cysts appear to be present. Left ovarian cyst was noted on recent ultrasound . Appendix is normal. No evidence of diverticulitis or bowel obstruction. IMPRESSION: No evidence of acute intra-abdominal process RADIATION DOSE DELIVERED: 960.36mGy.cm Total DLP 960.36mGy.cm Total DLP CTDIvol RADIATION OPTIMIZATION: All CT scans at this facility use at least one of these dose optimization te chniques: automated exposure control; mA and/or kV adjustment per patient size (includes targeted exa ms where dose is matched to clinical indication); or iterative reconstruction.
[2021-06-20] MEDS: Breeza Beverage 473 ML BTL PO ×2 (08:35→08:36)
[2021-06-20] MEDS: Omnipaque 350 MG/ML 50 ML BTL PO (08:35)
[2021-06-20] MEDS: Omnipaque 350 MG/ML 100 ML BTL IJ (10:03)
[2021-06-20] MEDS: Normal Saline - Diluent 50 ML VIAL IV (10:03)
[2021-06-20] MEDS: Normal Saline Flush 10 ML SYR IVP (10:04)
== END 2021-06-20 01:05 ==
PROVIDERS: PCP Family Medicine; Visit Provider Family Medicine
DX: R10.32 Left lower quadrant pain (principal); N83.291 Other ovarian cyst, right side; N83.292 Other ovarian cyst, left side
CPT/HCPCS: 74177; J3490; Q9967

== ENCOUNTER 2022-02-10 04:04 | Outpatient (CLI) | payer BC, SELFPAY ==
[2022-02-10 16:40] LABS: ESR 11 mm/hr (0-30)
[2022-02-10 17:04] LABS: ALT 36 U/L (14-59); AST 23 U/L (15-37); Alkaline Phosphatase 118 U/L (46-116); BUN 15 mg/dL (7-18); Bilirubin, Total 0.3 mg/dL (0.2-1.0); CREATININE 0.8 mg/dL (0.55-1.02); Calcium 9.4 mg/dL (8.5-10.1); Chloride 100 mmol/L (98-107); Glucose 107 mg/dL (74-106); Potassium 3.8 mmol/L (3.5-5.1); Sodium 137 mmol/L (136-145); Total Protein 7.4 g/dL (6.4-8.2); Uric Acid 5.5 mg/dL (2.6-6.0)
[2022-02-10 18:36] LABS: Hemoglobin A1C 5.8 % (<5.7)
[2022-02-10 22:17] LABS: Rheumatoid Factor <8.6 IU/mL (<12.0)
[2022-02-11 14:40] LABS: ANA Interpretation Negative (Negative)
[2022-02-12 05:15] LABS: Vitamin D 25 Total 68.5 ng/mL (30-100)
[2022-02-12 15:34] LABS: SS-A Antibody 1.3 Units (<20.0)
[2022-02-12 15:36] LABS: SS-B (La) Ab, IgG 1.1 Units (<20.0)
== END 2022-02-10 04:05 | disposition home or self-care (01) ==
LOC: LBO 04:04
PROVIDERS: PCP Family Medicine; Visit Provider Family Medicine
DX: R73.03 Prediabetes (principal); E55.9 Vitamin D deficiency, unspecified; M25.50 Pain in unspecified joint; H04.123 Dry eye syndrome of bilateral lacrimal glands
CPT/HCPCS: 80053; 82306; 85652; 83036; 84550; 86038; 86235; 86431

== ENCOUNTER 2022-06-25 01:32 | Emergency (ER) | payer BC, SELFPAY ==
[2022-06-25] VITALS (36 sets, daily range): BP systolic 129–158; BP diastolic 75–100; PULSE 78–105; RESP 11–29; TEMP 36.6; O2SAT 94–100
--- NOTE | 2022-06-25 01:30 | RT.EKG_ITS ---
APPROVED REPORT Exam: Resting ECG Reason for Exam: chest pain Patient Location: E HR:96 bpm ECG Measurements Heart Rate 96 AXIS AL 171 P 41 QRSd 92 QRS 73 QT 360 T 43 QTc 456 Conclusion Sinus rhythm...normal P axis, V-rate 60- 99 Physician: no stemi
[2022-06-25] MEDS: Aspirin 81 MG CHEW 324 MG CH (01:55)
[2022-06-25 01:59] LABS: Abs Immature Grans 0.01 10^3/uL (0.0-0.06); Absolute Basophil Count 0.03 10^3/uL (0.0-0.2); Absolute Eosinophil Count 0.18 10^3/uL (0.0-0.7); Absolute Lymphocyte Count 2.59 10^3/uL (1.2-3.4); Absolute Monocyte Count 0.39 10^3/uL (0.1-0.8); Absolute Neutrophil Count 4.08 10^3/uL (1.2-6.7); Basophils % 0.4; Eosinophils % 2.5; HCT 40.2 % (36.0-46.0); HGB 13.2 g/dL (11.2-15.7); Immature Grans % 0.1; Lymphocytes % 35.6; MCH 29.3 pg (27.0-33.0); MCHC 32.8 % (32.0-36.0); MCV 89 fL (80-95); MPV 9.9 fL (8.0-11.0); Monocytes % 5.4; Platelet Count 231 10^3/uL (130-400); RDW 13.2 % (11.7-14.6); RDW-SD 43.2 fL; WBC 7.28 10^3/uL (4.4-10.8)
--- NOTE | 2022-06-25 02:03 | W.ED.GENAD ---
Discharge Plan Disposition Patient Disposition: Home Condition: Good Discharge Details Clinical Impression: Chest wall pain Primary Care Provider: Katheryn Velasquez ED Provider: Jerson Nolasco Home Meds and New Rx's Prescriptions: No Action cholecalciferol (vitamin D3) 250 mcg (10,000 unit) capsule 250 mcg PO DAILY 5-hydroxytryptophan (5-HTP) 100 mg capsule 100 mg PO DAILY lisinopril-hydrochlorothiazide 10-12.5 mg tablet 1 tab PO DAILY Qty: 90 4RF omeprazole 40 mg capsule,delayed release(DR/EC) 40 mg PO DAILY Qty: 90 3RF acetaminophen [Tylenol Extra Strength] 500 mg tablet 1,000 mg PO BID PRN (Reason: Pain) loratadine 10 mg Capsule 10 mg PO DAILY Discharge Instructions Instructions: Chest Wall Pain (ED) Additional Instructions: At this time your CAT scans have returned normal and shows no signs of blood clots or other significant abnormality. Your laboratory work-up shows no signs of heart attack. Your potassium is minimally low. Over the next few days please eat foods that are high in potassium like bananas, legumes, and avocados. If you notice any worsening of your symptoms, or any new symptoms such as vomiting, diarrhea, fever, chills, shortness of breath, chest pain, numbness, weakness, or fainting , please return immediately to the emergency department for reevaluation. Please follow up with your primary care provider as soon as possible for reassessment and reevaluation. As always, it was a pleasure participating in your medical care today. Referrals: Katheryn Velasquez MD, [place] [Primary Care Provider] - Medical Decision Making This is a 52-year-old female with a past medical history of peptic ulcer disease, prediabetes, hypertension, irritable bowel syndrome, previous right-sided breast cancer and subsequent mastectomy 3 years ago with no chemotherapy or radiation, family history positive for her mother having a massive heart attack in her 50s to 60s, who is never smoked, who presents today for evaluation of epigastric discomfort. Patient states that at about 10 PM she had epigastric and left-sided chest wall discomfort. She took a Gas-X but this did not change much. It is continued throughout the night. She denies any tearing or ripping sensation. She denies any arm neck or shoulder pain. She states she does. More short of breath with some exertional dyspnea over the last few days, but denies any pleuritic chest pain. She denies any recent long trips surgeries or procedures. No other complaints at this time. No previous history of cardiac disease. She did have an exercise stress test on 04/01/2021 which was normal. Exam demonstrates a well-appearing female. No rash, mild left-sided and substernal reproducible chest wall tenderness. Differential is highest for GERD, musculoskeletal component, but because of her age and risk factors also does include ACS or cardiac etiology. Less likely PE. We will evaluate for these concerning etiologies, monitor closely and reassess. 5:20 AM Laboratory work-up, including proBNP have returned normal, no signs of heart strain or other significant abnormality. D-dimer was minimally elevated though, and we discussed risk and benefits of CTA. Patient elected for CTA. CTA shows no evidence of PE or other abnormality. Repeat troponin is normal. Patient symptoms are notably clinically inconsistent with ACS or PE or dissection. Patient stable for discharge and close follow-up with PCP. I have extensively reviewed the treatment plan and discharge instructions with the patient and their family. I have addressed all patient concerns at this time. The patient and family was made aware of what symptoms to monitor for that would warrant a return to the emergency department. Discussed the plan with the patient and family, they demonstrate verbal understanding and agreement with our assessment and plan at this time. The documentation in this chart was dictated using [employer] dictation software. Please excuse any dictation errors. FINDINGS: Pulmonary arteries: Normal. No pulmonary emboli. Aorta: Unremarkable. No aortic aneurysm. No aortic dissection. Lungs: Unremarkable. No consolidation. No masses. Pleural spaces: Unremarkable. No pneumothorax. No pleural effusion. Heart: Unremarkable. No cardiomegaly. No pericardial effusion. Lymph nodes: Unremarkable. No enlarged lymph nodes. Bones/joints: Unremarkable. No acute fracture. Soft tissues: Unremarkable. IMPRESSION: No acute findings. Thank you for allowing us to participate in the care of your patient. Dictated and Authenticated by: Blayne Abrams MD 06/25/2022 4:50 AM Eastern Time ([place] & [place]) Sign Out No HPI General Date/Time Provider Initiated Documentation: 06/25/22 01:48. HPI Narrative: This is a 52-year-old female with a past medical history of peptic ulcer disease, prediabetes, hypertension, irritable bowel syndrome, previous right-sided breast cancer and subsequent mastectomy 3 years ago with no chemotherapy or radiation, family history positive for her mother having a massive heart attack in her 50s to 60s, who is never smoked, who presents today for evaluation of epigastric discomfort. Patient states that at about 10 PM she had epigastric and left-sided chest wall discomfort. She took a Gas-X but this did not change much. It is continued throughout the night. She denies any tearing or ripping sensation. She denies any arm neck or shoulder pain. She states she does. More short of breath with some exertional dyspnea over the last few days, but denies any pleuritic chest pain. She denies any recent long trips surgeries or procedures. No other complaints at this time. No previous history of cardiac disease. She did have an exercise stress test on 04/01/2021 which was normal. Related Data Home Medications Medication Instructions Recorded Confirmed acetaminophen 500 mg tablet 1,000 mg PO BID PRN Pain 04/06/19 06/25/22 (Tylenol Extra Strength) cholecalciferol (vitamin D3) 250 250 mcg PO DAILY 06/27/20 06/25/22 mcg (10,000 unit) capsule 5-hydroxytryptophan (5-HTP) 100 mg 100 mg PO DAILY 04/03/21 06/25/22 capsule lisinopril 10 1 tab PO DAILY #90 tabs 07/16/21 06/25/22 mg-hydrochlorothiazide 12.5 mg tablet omeprazole 40 mg capsule,delayed 40 mg PO DAILY #90 caps 04/01/22 06/25/22 release loratadine 10 mg capsule 10 mg PO DAILY 06/25/22 06/25/22 Previous Rx's Medication Instructions Recorded lisinopril 10 1 tab PO DAILY #90 tabs 07/16/21 mg-hydrochlorothiazide 12.5 mg tablet omeprazole 40 mg capsule,delayed 40 mg PO DAILY #90 caps 04/01/22 release Allergies Allergy/AdvReac Type Severity Reaction Status Date / Time topiramate [From Topamax] AdvReac Mental Verified 06/25/22 02:11 changes General Stated Complaint: Chest Pain KEVIN: 2 Review of Systems All systems reviewed & are unremarkable except as noted in HPI and below PFSH All Active Problems (Updated 06/25/22 @ 05:16 by Jerson Nolasco DO) Chest wall pain (Acute) Dry eyes (Acute) Arthralgia (Acute) Ovarian cyst (Acute) Diverticulosis (Acute) Headache (Acute) Chest pain (Acute) Prediabetes (Acute) Stenosing tenosynovitis (Acute) Plantar fasciitis (Acute) Cervical pain (neck) (Acute) Left ovarian cyst (Acute) Encounter for annual physical exam (Acute) Disc herniation (Acute) Reflex abnormality (Acute) Quadriceps weakness (Acute) Spondylolisthesis at L5-S1 level (Acute) increase from 10 to 20% in 6 years Vitamin D deficiency (Acute) Palpitations (Acute) Chronic gastritis (Acute) Breast cancer (Chronic) R mastectomy Shortness of breath (Chronic) CXR-normal. lab-normal; PFT-? asthma-decreased FEV1/FVC; no response to albuterol; increased diffusion capacity Peptic reflux disease (Chronic 07/26/13) with dysphagia normal barium swallow Low back pain (Chronic) spondylolisthesis 08/22 Intractable migraine without aura and with status migrainosus (Chronic 12/24/15) Hyperlipidemia (Chronic) Hiatal hernia (Chronic) by barium swallow Essential hypertension (Chronic 07/21/13) Depressive disorder (Chronic) Degeneration of cervical intervertebral disc (Chronic) xray-C5-6 DDD/mild DJD Chronic daily headache (Chronic 12/24/15) Medical History BV (bacterial vaginosis) Rx with Flagyl 01/06/16 Left groin pain (12/25/14) Near syncope (11/05/15) Surgical History EGD - MAC (08/13/14) DR. MCDANIEL Endometrial Ablation (~2011) Endometrial Biopsy (08/26/11) Ligation of fallopian tube S/P right mastectomy Vaginal hysterectomy (04/22/16) Family History Father Aorta aneurysm Hypertension Hyperlipidemia Cancer of kidney 1/5 of kidney removed Heart disease Alcohol abuse Mother Aorta aneurysm Hypertension Hyperlipidemia Aunt/Uncle Aorta aneurysm Sister Bipolar 1 disorder Son Alcohol abuse Depression Diabetes Son Asthma Daughter Depression Daughter Depression Maternal Grandfather , in his 70s No problems noted. Paternal Grandfather No problems noted. 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 Pets and animals: Yes Pets and animals: dog(s) and other Details: RABBIT Sexually active: Yes Do you think of yourself as: straight/heterosexual Current gender identity: female What is your relationship status?: How often do you talk on the phone with friends or family?: three or more times per week How often do you get together with friends or relatives?: twice per week Do you belong to any clubs or organized social groups?: no Panel score (0-1 are the most socially isolated patients): 2 Augustina/Gnosticism: None Special augustina needs: No Seatbelt use: always Helmet use: Yes Helmet use: always Drive intox or ride w/intox hazmat truck driver: No Do you feel safe at home: Yes Do you feel safe in your relationship?: Yes Victim of physical abuse: No Victim of emotional abuse: No Victim of sexual abuse: No Would you like helpful sources: No Exam Narrative Exam Narrative: 1.Const: Well-nourished, Well-developed, appearing stated age 2.Eyes: PERRL, no conjunctival injection, and symmetrical lids. 3.ENT: Atraumatic external nose and ears. Moist MM. Neck: Symmetric, trachea midline, No thyromegaly. 4.CVS: +S1/S2, No murmurs or gallops. Peripheral pulses 2+ and equal in all extremities. Brisk capillary refill in all extremities. 5.RESP: Unlabored respiratory effort. Clear to auscultation bilaterally. No wheezes rales or rhonchi 6.GI: Soft, Nontender/Nondistended, No hepatosplenomegaly. No guarding or rebound. 7.MSK: Normocephalic/Atraumatic, Extremities w/o deformity or ttp No cyanosis or clubbing, Normal movement of all extremities 8.Skin: Warm, Dry. No rashes or lesions. No rash over the left chest 9.Neuro: script coordinator II-XII grossly intact. Sensation grossly intact, no focal neurologic deficits. 10.Psych: (AAO) x3. Appropriate mood and affect Course Vital Signs Vital signs: Vital Signs Temperature 36.6 C 06/25/22 01:39 Pulse 96 H 06/25/22 01:39 Respiratory Rate 18 06/25/22 01:39 Blood Pressure 158/100 H 06/25/22 01:39 Pulse Oximetry 100 06/25/22 01:39 Temperature 36.6 C 06/25/22 01:39 Temperature Source Temporal Artery Scan 06/25/22 01:39 Pulse 96 H 06/25/22 01:39 Respiratory Rate 18 06/25/22 01:39 Respiratory Effort 06/25/22 01:39 Blood Pressure 158/100 H 06/25/22 01:39 Blood Pressure Position Supine 06/25/22 01:39 Pulse Oximetry 100 06/25/22 01:39 Oxygen Delivery Method Room Air 06/25/22 01:39 Oxygen Flow Rate 0 06/25/22 01:39 Pain Level 2 06/25/22 01:39 Lab/Test Results Lab/Test Results: Laboratory Tests Range/Units 06/25/22 01:55 WBC (4.4-10.8) 10^3/uL 7.28 RBC (3.93-5.22) 10^6/uL 4.50 Hgb (11.2-15.7) g/dL 13.2 Hct (36.0-46.0) % 40.2 MCV (80-95) fL 89 MCH (27.0-33.0) pg 29.3 MCHC (32.0-36.0) % 32.8 RDW (11.7-14.6) % 13.2 Plt Count (130-400) 10^3/uL 231 MPV (8.0-11.0) fL 9.9 Immature Gran % 0.1 Neutrophils % 56.0 Lymphocytes % 35.6 Monocytes % 5.4 Eosinophils % 2.5 Basophils % 0.4 Nucleated RBC % (0.0-0.3) % 0.0 Absolute Neutrophils (1.2-6.7) 10^3/uL 4.08 Absolute Lymphocytes (1.2-3.4) 10^3/uL 2.59 Absolute Monocytes (0.1-0.8) 10^3/uL 0.39 Absolute Eosinophils (0.0-0.7) 10^3/uL 0.18 Absolute Basophils (0.0-0.2) 10^3/uL 0.03
[2022-06-25 02:16] LABS: PTT Activated 24.7 sec (21.0-27.5); Prothrombin Time 9.7 sec (9.3-11.0)
[2022-06-25 02:24] LABS: ALT 37 U/L (14-59); AST 18 U/L (15-37); Alkaline Phosphatase 134 U/L (46-116); Anion Gap 9.5 mmol/L (3-11); BUN 22 mg/dL (7-18); Bilirubin, Total 0.3 mg/dL (0.2-1.0); CO2 28.5 mmol/L (21.0-32.0); Calcium 9.3 mg/dL (8.5-10.1); Chloride 103 mmol/L (98-107); Estimated GFR 68.21 (mL/min/1.73m2); Glucose 134 mg/dL (74-106); NT-proBNP 11 pg/mL (<300); Potassium 3.2 mmol/L (3.5-5.1); Sodium 141 mmol/L (136-145); Total Protein 7.6 g/dL (6.4-8.2); Troponin I < 50 ng/L (<or=60)
[2022-06-25 02:44] LABS: D-Dimer 584 ng/mlFEU (<500)
--- NOTE | 2022-06-25 02:45 | DI.CT_ITS ---
Exam(s) CT CHEST PE CTA EXAM: CT CHEST PE CTA CLINICAL HISTORY: sob, chest pain, elevated dimer, r/o PE. TECHNIQUE: Imaging Protocol: Axial CT angiography was performed with multi-slice acquisition and mu lti-planar and/or 3D reconstructions. CONTRAST MATERIAL: Intravenous: Omnipaque 350 Contrast volume:structured data in ml COMPARISON: CT CT ABDOMEN PELVIS W from 06/20/2021 FINDINGS: CT angiography of the chest was performed with intravenous infusion of 100 cc of Omnipaque 350. The lungs are clear. No pleural effusion. Tracheobronchial tree appears intact. No evidence of pulmonary embolic disease. Thoracic aorta is of normal diameter, no thoracic aortic an eurysm or dissection, major branch vessels appear intact. No mediastinal or hilar adenopathy. Images obtained through the upper abdomen show unremarkable appearance of the visualized portions of the liver, spleen, pancreas, adrenals, and kidneys. IMPRESSION: Negative CT angiogram of the chest. No evidence of pulmonary embolic disease. RADIATION DOSE DELIVERED: Total DLP Total DLP DATA REPOSITORY: All CT scans at this facility are submitted to the National Radiology Data Registry (NRDR) Dose Index Registry (DIR) with the [employer] (ACR). RADIATION OPTIMIZATION: All CT scans at this facility use at least one of these dose optimization te chniques: automated exposure control; mA and/or kV adjustment per patient size (includes targeted exa ms where dose is matched to clinical indication); or iterative reconstruction.
[2022-06-25] MEDS: Omnipaque 350 MG/ML 100 ML BTL IJ (03:46)
[2022-06-25] MEDS: Normal Saline - Diluent 50 ML VIAL IJ (03:47)
--- NOTE | 2022-06-25 04:51 | DI.VRAD_ITS ---
PROCEDURE INFORMATION: Exam: CTA Chest With Contrast Exam date and time: 06/25/2022 3:28 AM Age: 52 years old Clinical indication: Pain and abnormal findings; Abnormal diagnostic tests; Elevated d-dimer; Shortness of breath; Other: Unspecified; Patient HX: Chest pain, SOB, elevated ddimer; Additional info: R/O pe TECHNIQUE: Imaging protocol: Computed tomographic angiography of the chest with contrast. 3D rendering (Not supervised by radiologist): MIP and/or 3D reconstructed images were created by the technologist. COMPARISON: CT CHEST PE CTA 03/29/2021 7:11 PM FINDINGS: Pulmonary arteries: Normal. No pulmonary emboli. Aorta: Unremarkable. No aortic aneurysm. No aortic dissection. Lungs: Unremarkable. No consolidation. No masses. Pleural spaces: Unremarkable. No pneumothorax. No pleural effusion. Heart: Unremarkable. No cardiomegaly. No pericardial effusion. Lymph nodes: Unremarkable. No enlarged lymph nodes. Bones/joints: Unremarkable. No acute fracture. Soft tissues: Unremarkable. IMPRESSION: No acute findings. Dictated and Authenticated by: Blayne Abrams MD. Ordering:MERA Arthur MD
[2022-06-25 05:14] LABS: Troponin I < 50 ng/L (<or=60)
== END 2022-06-25 05:31 | disposition home or self-care (01) ==
PROVIDERS: Emergency Provider Student in an Organized Health Care Education/Training Program; PCP Family Medicine
DX: R07.89 Other chest pain (principal); I10 Essential (primary) hypertension; R79.89 Other specified abnormal findings of blood chemistry; Z85.3 Personal history of malignant neoplasm of breast
CPT/HCPCS: 36415; 71275; 80053; 93005; 99285; 83880; 84484; 85025; 85379; 85610; 85730; 93010; J3490

== ENCOUNTER 2022-09-28 02:51 | Outpatient (CLI) | payer BC, SELFPAY ==
[2022-09-28 17:07] LABS: Hemoglobin A1C 5.9 % (<5.7)
[2022-09-28 17:41] LABS: ALT 31 U/L (14-59); AST 21 U/L (15-37); Albumin 3.9 g/dL (3.4-5.0); Alkaline Phosphatase 131 U/L (46-116); Anion Gap 9.6 mmol/L (3-11); BUN 16 mg/dL (7-18); Bilirubin, Total 0.2 mg/dL (0.2-1.0); CO2 28.4 mmol/L (21.0-32.0); CREATININE 0.9 mg/dL (0.55-1.02); Calcium 9.6 mg/dL (8.5-10.1); Chloride 103 mmol/L (98-107); Glucose 146 mg/dL (74-106); Potassium 3.1 mmol/L (3.5-5.1); Sodium 141 mmol/L (136-145); Total Protein 7.2 g/dL (6.4-8.2)
== END 2022-09-28 02:52 | disposition home or self-care (01) ==
PROVIDERS: PCP Family Medicine; Visit Provider Family Medicine
DX: E11.9 Type 2 diabetes mellitus without complications (principal); I10 Essential (primary) hypertension; Z00.00 Encounter for general adult medical examination without abnormal findings
CPT/HCPCS: 36415; 80053; 83036

== ENCOUNTER 2022-11-25 15:04 | Emergency (ER) | payer BC, SELFPAY ==
[2022-11-25 15:08] VITALS: BP 137/87; PULSE 87; RESP 20; TEMP 36.5
--- NOTE | 2022-11-25 15:17 | DI.RAD_ITS ---
Exam(s) XR HIP LT COMPLETE AP PELVIS EXAM: XR HIP LT COMPLETE AP PELVIS CLINICAL HISTORY: pain onset today. TECHNIQUE: 2D digital imaging was performed of the left hip. Two views were obtained. AP pelvis an d lateral left hip views were obtained. COMPARISON: CT CT ABDOMEN PELVIS W from 06/20/2021 FINDINGS: BONES: No acute fracture is present. No bony destructive lesion is seen. The sclerotic focus in the p roximal shaft of the right femur is unchanged. JOINTS: No dislocation present. SOFT TISSUE: Normal. IMPRESSION: No acute abnormality. DATA REPOSITORY: RADIATION DOSE DELIVERED:
--- NOTE | 2022-11-25 16:16 | ED.GENADUL_ITS ---
Discharge Plan Disposition Patient Disposition: Home Condition: Good Discharge Details Clinical Impression: Other sprain of left hip, initial encounter Primary Care Provider: Katheryn Velasquez ED Provider: Alayna Hodgson Home Meds and New Rx's Prescriptions: Continued cholecalciferol (vitamin D3) 250 mcg (10,000 unit) capsule 250 mcg PO DAILY albuterol sulfate 90 mcg/actuation HFA aerosol inhaler 2 inh inhalation Q6H PRN (Reason: shortness of breath or wheezing) Qty: 18 4RF (DME) BreatheRite Valved MDI Spacer Spacer See Rx Instructions .Route Qty: 1 0RF Rx Instructions: As directed 5-hydroxytryptophan (5-HTP) 100 mg capsule 100 mg PO DAILY omeprazole 40 mg capsule,delayed release(DR/EC) 40 mg PO DAILY Qty: 90 3RF potassium chloride 20 mEq tablet extended release 20 meq PO DAILY Qty: 90 5RF lisinopril-hydrochlorothiazide 10-12.5 mg tablet 1 tab PO DAILY Qty: 90 4RF acetaminophen [Tylenol Extra Strength] 500 mg tablet 1,000 mg PO BID PRN (Reason: Pain) loratadine 10 mg Capsule 10 mg PO DAILY Discharge Instructions Instructions: Hip Sprain (ED) Additional Instructions: Take enteric-coated aspirin 650 mg every 4-6 hours for pain and inflammation. Apply ice 20 minutes on and 20 minutes off for the next 24 to 72 hours. You may then change to heat as needed. If you are no better by Wednesday then call your primary care doctor for a follow-up appointment. They can refer you to physical therapy and for do additional testing as needed. Discharge Data Discharge Date/Time-TO BE ENTERED AT DEPARTURE: 11/25/22 17:30 Medical Decision Making Patient may have pulled a muscle leaning forward. She certainly may also have bursitis but this is generally an overuse injury and the story is not good for it. Either way anti-inflammatory medicine should help. She states that she had gastritis at one time and was told that she should not take ibuprofen. I have asked her to take adult strength aspirin 325 mg x 2 every 4-6 hours as needed for pain. She will begin with ice for the next 24 to 48 hours and then switch over to heat if this is still bothering her. She can follow-up with her primary care doc in a week if this is not improved. Imaging Data Radiologic Study: Imaging: X-Ray Radiologist's impression: Exam(s) XR HIP LT COMPLETE ? AP PELVIS EXAM:? XR HIP LT COMPLETE ? AP PELVIS CLINICAL HISTORY: ? pain onset today.? TECHNIQUE:? 2D digital imaging was performed of the left hip.? Two views were obtained.? AP pelvis and lateral left hip views were obtained. COMPARISON:? CT CT ABDOMEN ? PELVIS W from 06/20/2021 FINDINGS: BONES: No acute fracture is present. No bony destructive lesion is seen. The sclerotic focus in the proximal shaft of the right femur is unchanged. JOINTS: No dislocation present. SOFT TISSUE: Normal. IMPRESSION: No acute abnormality.? HPI General Date/Time Provider Initiated Documentation: 11/25/22 15:16 . HPI Narrative: This 52-year-old female patient with a history of lower back pain presents with a chief complaint of left hip pain that began earlier today. Patient states she was leaning forward and felt something in her left hip (like a pull). She has lateral pain there now that seems worse when she walks. Patient states it is hurting her sitting in the wheelchair waiting to come in. When the pain hits her suddenly she feels like her leg is going to give out. She has no definitive numbness or weakness. There is no bowel or bladder dysfunction. She says her lower back pain is chronic and unchanged at present. There is no rash. She has had no fever or chills. Related Data Home Medications Medication Instructions Recorded Confirmed acetaminophen 500 mg tablet 1,000 mg PO BID PRN Pain 04/06/19 11/25/22 (Tylenol Extra Strength) cholecalciferol (vitamin D3) 250 250 mcg PO DAILY 06/27/20 11/25/22 mcg (10,000 unit) capsule 5-hydroxytryptophan (5-HTP) 100 mg 100 mg PO DAILY 04/03/21 11/25/22 capsule omeprazole 40 mg capsule,delayed 40 mg PO DAILY #90 caps 04/01/22 11/25/22 release loratadine 10 mg capsule 10 mg PO DAILY 06/25/22 11/25/22 potassium chloride 20 mEq 20 meq PO DAILY #90 tabs 09/28/22 11/25/22 tablet,extended release lisinopril 10 1 tab PO DAILY #90 tabs 10/05/22 11/25/22 mg-hydrochlorothiazide 12.5 mg tablet albuterol sulfate 90 mcg/actuation 2 inh inhalation Q6H PRN shortness 10/13/22 10/27/22 aerosol inhaler of breath or wheezing #18 grams inhalational spacing device #1 ea 10/13/22 11/25/22 (BreatheRite Valved MDI Spacer) Previous Rx's Medication Instructions Recorded omeprazole 40 mg capsule,delayed 40 mg PO DAILY #90 caps 04/01/22 release potassium chloride 20 mEq 20 meq PO DAILY #90 tabs 09/28/22 tablet,extended release lisinopril 10 1 tab PO DAILY #90 tabs 10/05/22 mg-hydrochlorothiazide 12.5 mg tablet albuterol sulfate 90 mcg/actuation 2 inh inhalation Q6H PRN shortness 10/13/22 aerosol inhaler of breath or wheezing #18 grams inhalational spacing device #1 ea 10/13/22 (BreatheRite Valved MDI Spacer) Allergies Allergy/AdvReac Type Severity Reaction Status Date / Time topiramate [From Topamax] AdvReac Mental Verified 10/27/22 13:22 changes General Stated Complaint: Orthopedic KEVIN: 4 Review of Systems Unobtainable due to (no FC) Musculoskeletal Musculoskeletal: Reports as per HPI, Reports back pain (Chronic and unchanged), Denies deformity, Denies joint swelling, Denies limited range of motion, Denies muscle weakness, Denies numbness and Denies radiating pain into limb Integumentary/Breasts Comments: no rash Neurologic Neurologic: Denies localized weakness and Denies numbness PFSH All Active Problems (Updated 11/25/22 @ 17:10 by Alayna Hodgson MD) Other sprain of left hip, initial encounter (Acute) Annual physical exam (Acute) Dry eyes (Acute) Arthralgia (Acute) Ovarian cyst (Acute) Diverticulosis (Acute) Headache (Acute) Chest pain (Acute) Prediabetes (Acute) Stenosing tenosynovitis (Acute) Plantar fasciitis (Acute) Cervical pain (neck) (Acute) Left ovarian cyst (Acute) Encounter for annual physical exam (Acute) Disc herniation (Acute) Reflex abnormality (Acute) Quadriceps weakness (Acute) Spondylolisthesis at L5-S1 level (Acute) increase from 10 to 20% in 6 years Vitamin D deficiency (Acute) Palpitations (Acute) Chronic gastritis (Acute) Breast cancer (Chronic) R mastectomy Shortness of breath (Chronic) CXR-normal. lab-normal; PFT-? asthma-decreased FEV1/FVC; no response to albuterol; increased diffusion capacity Peptic reflux disease (Chronic 07/26/13) with dysphagia normal barium swallow Low back pain (Chronic) spondylolisthesis 08/22 Intractable migraine without aura and with status migrainosus (Chronic 12/24/15) Hyperlipidemia (Chronic) Hiatal hernia (Chronic) by barium swallow Essential hypertension (Chronic 07/21/13) Depressive disorder (Chronic) Degeneration of cervical intervertebral disc (Chronic) xray-C5-6 DDD/mild DJD Chronic daily headache (Chronic 12/24/15) Medical History BV (bacterial vaginosis) Rx with Flagyl 01/06/16 Left groin pain (12/25/14) Near syncope (11/05/15) Surgical History EGD - MAC (08/13/14) DR. MCDANIEL Endometrial Ablation (~2011) Endometrial Biopsy (08/26/11) Ligation of fallopian tube S/P right mastectomy Vaginal hysterectomy (04/22/16) Family History Father Aorta aneurysm Hypertension Hyperlipidemia Cancer of kidney 1/5 of kidney removed Heart disease Alcohol abuse Mother Aorta aneurysm Hypertension Hyperlipidemia Aunt/Uncle Aorta aneurysm Sister Bipolar 1 disorder Son Alcohol abuse Depression Diabetes Son Asthma Daughter Depression Daughter Depression Maternal Grandfather , in his 70s No problems noted. Paternal Grandfather No problems noted. Maternal Grandmother , in her 40s Brain aneurysm Paternal Grandmother , 82 Heart disease Hypertension Stroke Social History Smoking/Tobacco Use Status: Never Second Hand Exposure: Yes Smoking risk assessment performed?: Yes Alcohol Intake: never Drug use: Never Substance use type: does not use Caregiver/Support person: No Household members: spouse and children Housing: house Communication Needs: None Do you need help understanding health information?: Never current occupation: [employer]. Pets and animals: Yes Pets and animals: dog(s) and other Details: RABBIT Sexually active: Yes Do you think of yourself as: straight/heterosexual Current gender identity: female What is your relationship status?: How often do you talk on the phone with friends or family?: three or more times per week How often do you get together with friends or relatives?: three or more times per week How often do you attend rastafarian or adventism services?: decline to answer Do you belong to any clubs or organized social groups?: yes Panel score (0-1 are the most socially isolated patients): 3 What type of physical activity do you participate in: none Augustina/Gnosticism: No preference Special augustina needs: No Seatbelt use: always Drive intox or ride w/intox package delivery driver: No Do you feel safe at home: Yes Do you feel safe in your relationship?: Yes Victim of physical abuse: No Victim of emotional abuse: No Victim of sexual abuse: No Would you like helpful sources: No Exam Narrative Exam Narrative: Patient is alert and oriented x3, cooperative with exam. Skin is pink warm and dry, pelvis is stable. Back is nontender to palpation along spine. There is no sciatic notch pain. The patient has tenderness to palpation laterally on her left hip. Distal to this the remainder of her leg is atraumatic and nontender to palpation. The patient has no pain on flexion or extension. She has no pain on internal or external rotation. She is neurovascularly intact distal to this. Strength is 5 out of 5 in her bilateral lower extremities. She has full range of motion of both of her legs. Extrem General: normal to inspection and full ROM Left lower extremity: normal to inspection, full ROM (Internal and external rotation as well as flexion and extension intact), no joint enlargement and hip/thigh (Left lateral hip tenderness to palpation, no ecchymosis/deformity/abrasion) Details: other (Left lower extremity is atraumatic and nontender to palpation with exception to the lateral hip); no lacerations and no crepitus; no edema Course Vital Signs Vital signs: Vital Signs Temperature 36.5 C 11/25/22 15:08 Pulse 87 11/25/22 15:08 Respiratory Rate 20 11/25/22 15:08 Blood Pressure 137/87 11/25/22 15:08 Temperature 36.5 C 11/25/22 15:08 Temperature Source Oral 11/25/22 15:08 Pulse 87 11/25/22 15:08 Respiratory Rate 20 11/25/22 15:08 Respiratory Effort Normal, Non-Labored 11/25/22 15:13 Blood Pressure 137/87 11/25/22 15:08 Blood Pressure Position Sitting 11/25/22 15:08 Oxygen Delivery Method Room Air 11/25/22 15:08 Oxygen Flow Rate 0 11/25/22 15:08 Pain Level 0 11/25/22 15:08
== END 2022-11-25 17:30 | disposition home or self-care (01) ==
PROVIDERS: Emergency Provider Emergency Medicine; PCP Family Medicine
DX: S73.192A Other sprain of left hip, initial encounter (principal); X50.9XXA Other and unspecified overexertion or strenuous movements or postures, initial encounter
CPT/HCPCS: 99283; 73502

== ENCOUNTER 2023-02-16 07:07 | Emergency (ER) | payer BC, SELFPAY ==
[2023-02-16] VITALS (12 sets, daily range): BP systolic 134–161; BP diastolic 79–89; PULSE 67–92; RESP 13–23; TEMP 36.6; O2SAT 95–100
--- NOTE | 2023-02-16 07:00 | RT.EKG_ITS ---
APPROVED REPORT Exam: Resting ECG Reason for Exam: Chest pain Patient Location: E HR:85 bpm ECG Measurements Heart Rate 85 AXIS MO 170 P 32 QRSd 89 QRS 70 QT 362 T 34 QTc 431 Conclusion Sinus rhythm...normal P axis, V-rate 60- 99
--- NOTE | 2023-02-16 07:30 | DI.RAD_ITS ---
Exam(s) XR PORTABLE CHEST AP EXAM: XR PORTABLE CHEST AP CLINICAL HISTORY: chest pain. TECHNIQUE: 2D digital imaging was performed. COMPARISON: No exams were available for comparison FINDINGS: Single AP portable view. Heart size is upper normal. The mediastinum is not widened. Lungs are clear. No infiltrates nor obvious pleural effusions. IMPRESSION: No acute pulmonary findings on this single AP portable view of the chest. DATA REPOSITORY: RADIATION DOSE DELIVERED:
--- NOTE | 2023-02-16 08:02 | W.ED.GENAD ---
Discharge Plan Disposition Patient Disposition: Home Condition: Good Discharge Details Clinical Impression: Gastro-esophageal reflux disease with esophagitis, Chest pain Primary Care Provider: Katheryn Velasquez ED Provider: Alayna Hodgson Home Meds and New Rx's Prescriptions: New omeprazole 40 mg capsule,delayed release(DR/EC) 40 mg PO BID Qty: 60 0RF Rx Instructions: Take 80 mg per day for 1-2 weeks and then go back to 40 mg sucralfate [Carafate] 1 gram tablet 1 g PO QID Qty: 28 0RF Continued cholecalciferol (vitamin D3) 250 mcg (10,000 unit) capsule 250 mcg PO DAILY albuterol sulfate 90 mcg/actuation HFA aerosol inhaler 2 inh inhalation Q6H PRN (Reason: shortness of breath or wheezing) Qty: 18 4RF (DME) BreatheRite Valved MDI Spacer Spacer See Rx Instructions .Route Qty: 1 0RF Rx Instructions: As directed 5-hydroxytryptophan (5-HTP) 100 mg capsule 100 mg PO DAILY Patient Comments: havent taken for a few months omeprazole 40 mg capsule,delayed release(DR/EC) 40 mg PO DAILY Qty: 90 3RF potassium chloride 20 mEq tablet extended release 20 meq PO DAILY Qty: 90 5RF lisinopril-hydrochlorothiazide 10-12.5 mg tablet 1 tab PO DAILY Qty: 90 4RF acetaminophen [Tylenol Extra Strength] 500 mg tablet 1,000 mg PO BID PRN (Reason: Pain) loratadine 10 mg Capsule 10 mg PO DAILY vitamin B complex Capsule 1 cap PO DAILY coenzyme Q10 100 mg Tablet,Chewable 100 mg PO DAILY tl-gk-bxkq-FA-Ca carb-vit K 18 mg iron-400 mcg-500 mg Tablet 1 tab PO DAILY Discharge Instructions Instructions: Chest Pain (ED), GERD (Gastroesophageal Reflux Disease) (ED) Additional Instructions: Increase your Prilosec or omeprazole to 80 mg a day for 1 week. Take the Carafate as prescribed for 1 week. Back off on your Prilosec after this. Make an appointment to see your PCP this week for the different chest pain. She may want to schedule a stress test due to your risk factors. Return to ED for crushing substernal chest pain, difficulty breathing, any other concerns. Medical Decision Making Patient will double her PPI to 40 mg/day for the next 1 to 2 weeks. She will have her PCP give her referral to [facility] for endoscopy. We will ultrasound her aorta formally today and we talked about follow-up for this. We will do serial troponins today and she will follow-up with her PCP for possible provocative testing. 1000 second troponin pending, ultrasound of aorta pending. Patient was updated on her test results. Patient continues to be pain-free on discharge and will increase her PPI, start Carafate, and follow-up with her PCP this week for possible stress test. Medical Records Medical records reviewed: Yes I reviewed the patient's medical records. Imaging Data Radiologic Study: Radiologist's impression: xam(s) XR PORTABLE CHEST AP EXAM:? XR PORTABLE CHEST AP CLINICAL HISTORY: ? chest pain. ? TECHNIQUE:? 2D digital imaging was performed. COMPARISON:? No exams were available for comparison FINDINGS: Single AP portable view. Heart size is upper normal.? The mediastinum is not widened. Lungs are clear.? No infiltrates nor obvious pleural effusions. IMPRESSION: No acute pulmonary findings on this single AP portable view of the chest. Radiologic Study #2: Radiologist's impression: Exam(s) US AAA SCREENING EXAM:? US AAA SCREENING CLINICAL HISTORY:? [facility] AAA both parents, abd pain COMPARISON:? US US PELVIS ? TRANSVAGINAL from 06/04/2021 FINDINGS: There is no evidence of abdominal aortic aneurysm.? Maximum diameter of the abdominal aorta is 2.4 cm proximally and the aorta tapers normally with diameter 1.7 cm just above the bifurcation.? Both common iliac arteries exhibit upper normal size, measuring 10-11 mm. IMPRESSION: No evidence of significant abdominal aortic aneurysm. Also no significant aneurysmal dilatation of the visualized common iliac arteries. Lab Data Lab results reviewed: Yes I reviewed the patient's lab results. Lab results narrative: Note that the physician on before me put in labs for this patient without seeing her. He ordered a D-dimer which is slightly elevated at 545. D-dimer elevations are certainly nonspecific and based on her history and physical exam I see no reason to pursue this at this time. Of note, the patient has elevated dimer's in the past. Patient's potassium is 3.3, alk phos is 130, and remainder of her labs are benign including her troponin. ECG Data Attestation: I personally reviewed and interpreted this ECG (s) as follows: (EKG: Normal sinus rhythm at 85, normal intervals, no ST-T changes, normal EKG) HPI General Date/Time Provider Initiated Documentation: 02/16/23 07:42. HPI Narrative: Patient presents with a chief complaint of upper sternal chest pain radiating into her left shoulder and arm that began about 2 AM this morning. The patient reports that she has a long history burning epigastric pain going up into her chest with a lot of associated burping. This typically is worse at night. She says it makes her anxious and sometimes she shakes little bit. She has had no fever or chills. She does take 40 mg of Prilosec a day and sometimes adds Pepcid and Pepto-Bismol. This was recommended by a doc at [facility] for 5 years ago. She has no pain going into her back. She does have a family history of AAA in both mom and dad and has not had screening for some time. This morning the pain was a little bit different when she was in the tub and was more an ache going into her shoulder and arm. It lasted about 15 minutes. Describes some numbness as well in the upper arm. Mother had an IN at age 61. The patient does not use cocaine but has high blood pressure and prediabetes. She does not have high cholesterol. She says occasionally at night when she has the burning pain she feels a little bit short of breath. She was given some albuterol to take when this happens but does not think it really does much. She has no pedal edema or calf pain. She cannot bring the discomfort on by doing anything; it does seem to be more more noticeable at night. Patient does have occasional skipping her chest that lasts for a minute. She was taught how to take her pulse on time how long this lasts for. Mother has a history of A-fib. Related Data Home Medications Medication Instructions Recorded Confirmed acetaminophen 500 mg tablet 1,000 mg PO BID PRN Pain 04/06/19 02/16/23 (Tylenol Extra Strength) cholecalciferol (vitamin D3) 250 250 mcg PO DAILY 06/27/20 02/16/23 mcg (10,000 unit) capsule 5-hydroxytryptophan (5-HTP) 100 mg 100 mg PO DAILY 04/03/21 12/07/22 capsule omeprazole 40 mg capsule,delayed 40 mg PO DAILY #90 caps 04/01/22 02/16/23 release loratadine 10 mg capsule 10 mg PO DAILY 06/25/22 02/16/23 potassium chloride 20 mEq 20 meq PO DAILY #90 tabs 09/28/22 02/16/23 tablet,extended release lisinopril 10 1 tab PO DAILY #90 tabs 10/05/22 02/16/23 mg-hydrochlorothiazide 12.5 mg tablet albuterol sulfate 90 mcg/actuation 2 inh inhalation Q6H PRN shortness 10/13/22 02/16/23 aerosol inhaler of breath or wheezing #18 grams inhalational spacing device #1 ea 10/13/22 12/07/22 (BreatheRite Valved MDI Spacer) coenzyme Q10 100 mg chewable tablet 100 mg PO DAILY 02/16/23 02/16/23 qsycumgy-vsp-hniy-FA-Ca carb-vit K 1 tab PO DAILY 02/16/23 02/16/23 18 mg iron-400 mcg-500 mg tablet omeprazole 40 mg capsule,delayed 40 mg PO BID #60 caps 02/16/23 release sucralfate 1 gram tablet (Carafate) 1 g PO QID #28 tabs 02/16/23 vitamin B complex 1 cap PO DAILY 02/16/23 02/16/23 Previous Rx's Medication Instructions Recorded omeprazole 40 mg capsule,delayed 40 mg PO DAILY #90 caps 04/01/22 release potassium chloride 20 mEq 20 meq PO DAILY #90 tabs 09/28/22 tablet,extended release lisinopril 10 1 tab PO DAILY #90 tabs 10/05/22 mg-hydrochlorothiazide 12.5 mg tablet albuterol sulfate 90 mcg/actuation 2 inh inhalation Q6H PRN shortness 10/13/22 aerosol inhaler of breath or wheezing #18 grams inhalational spacing device #1 ea 10/13/22 (BreatheRite Valved MDI Spacer) omeprazole 40 mg capsule,delayed 40 mg PO BID #60 caps 02/16/23 release sucralfate 1 gram tablet (Carafate) 1 g PO QID #28 tabs 02/16/23 Allergies Allergy/AdvReac Type Severity Reaction Status Date / Time topiramate [From Topamax] AdvReac Mental Verified 02/16/23 07:25 changes General Stated Complaint: Chest Pain KEVIN: 3 Review of Systems Constitutional Constitutional: Denies chills, Denies fever(s), Denies headache(s) and Denies weakness Eyes Eyes: Denies diplopia and Reports other (no redness) ENT Ears, Nose, Mouth, and Throat: Denies otalgia, Denies headache(s), Denies nasal congestion, Denies nasal discharge, Denies neck pain and Denies sore throat Cardiovascular Cardiovascular: Reports chest pain, Reports palpitations (Patient occasionally feels skips that last about a minute) and Reports dyspnea (vague, gets with pain) Respiratory Respiratory: Denies cough and Reports dyspnea (vague, gets with pain) Gastrointestinal Gastrointestinal: Reports abdominal pain (Burning epigastric pain off and on), Denies diarrhea, Reports nausea (With burping and reflux) and Denies vomiting Genitourinary Genitourinary: Denies dysuria Musculoskeletal Musculoskeletal: Denies myalgias, Denies muscle weakness, Denies neck pain, Denies numbness and Reports other (no edema) Integumentary/Breasts Skin/Breast: Denies change in pigmentation and Denies rash Neurologic Neurologic: Denies headache(s), Denies numbness and Denies weakness Endocrine Endocrine: Reports palpitations (Patient occasionally feels skips that last about a minute) PFSH All Active Problems (Updated 02/16/23 @ 12:04 by Alayna Hodgson MD) Gastro-esophageal reflux disease with esophagitis (Acute) Chest pain (Acute) Annual physical exam (Acute) Dry eyes (Acute) Arthralgia (Acute) Ovarian cyst (Acute) Diverticulosis (Acute) Headache (Acute) Chest pain (Acute) Prediabetes (Acute) Stenosing tenosynovitis (Acute) Plantar fasciitis (Acute) Cervical pain (neck) (Acute) Left ovarian cyst (Acute) Encounter for annual physical exam (Acute) Disc herniation (Acute) Reflex abnormality (Acute) Quadriceps weakness (Acute) Spondylolisthesis at L5-S1 level (Acute) increase from 10 to 20% in 6 years Vitamin D deficiency (Acute) Palpitations (Acute) Chronic gastritis (Acute) Breast cancer (Chronic) R mastectomy Shortness of breath (Chronic) CXR-normal. lab-normal; PFT-? asthma-decreased FEV1/FVC; no response to albuterol; increased diffusion capacity Peptic reflux disease (Chronic 07/26/13) with dysphagia normal barium swallow Low back pain (Chronic) spondylolisthesis 08/22 Intractable migraine without aura and with status migrainosus (Chronic 12/24/15) Hyperlipidemia (Chronic) Hiatal hernia (Chronic) by barium swallow Essential hypertension (Chronic 07/21/13) Depressive disorder (Chronic) Degeneration of cervical intervertebral disc (Chronic) xray-C5-6 DDD/mild DJD Chronic daily headache (Chronic 12/24/15) Medical History BV (bacterial vaginosis) Rx with Flagyl 01/06/16 Left groin pain (12/25/14) Near syncope (11/05/15) Surgical History EGD - MAC (08/13/14) DR. MCDANIEL Endometrial Ablation (~2011) Endometrial Biopsy (08/26/11) Ligation of fallopian tube S/P right mastectomy Vaginal hysterectomy (04/22/16) Family History Father Aorta aneurysm Hypertension Hyperlipidemia Cancer of kidney 1/5 of kidney removed Heart disease Alcohol abuse Mother Aorta aneurysm Hypertension Hyperlipidemia Aunt/Uncle Aorta aneurysm Sister Bipolar 1 disorder Son Alcohol abuse Depression Diabetes Son Asthma Daughter Depression Daughter Depression Maternal Grandfather , in his 70s No problems noted. Paternal Grandfather No problems noted. Maternal Grandmother , in her 40s Brain aneurysm Paternal Grandmother , 82 Heart disease Hypertension Stroke Social History Smoking/Tobacco Use Status: Never Second Hand Exposure: Yes Smoking risk assessment performed?: Yes Alcohol Intake: never Drug use: Never Substance use type: does not use Caregiver/Support person: No Household members: spouse and children Housing: house Communication Needs: None Do you need help understanding health information?: Never current occupation: [employer]. Pets and animals: Yes Pets and animals: dog(s) and other Details: RABBIT Sexually active: Yes Do you think of yourself as: straight/heterosexual Current gender identity: female What is your relationship status?: How often do you talk on the phone with friends or family?: three or more times per week How often do you get together with friends or relatives?: three or more times per week How often do you attend latter day or synagogue services?: decline to answer Do you belong to any clubs or organized social groups?: yes Panel score (0-1 are the most socially isolated patients): 3 What type of physical activity do you participate in: none Augustina/Druze: No preference Special augustina needs: No Seatbelt use: always Drive intox or ride w/intox route relief driver: No Do you feel safe at home: Yes Do you feel safe in your relationship?: Yes Victim of physical abuse: No Victim of emotional abuse: No Victim of sexual abuse: No Would you like helpful sources: No Female Reproductive History Menstrual Menopause type: surgical Exam Const General: no acute distress, well developed, well groomed and not in acute distress Nutritional Appearance: well nourished Orientation: alert and oriented x3 HENMT Head: normocephalic and atraumatic Ears: external ears normal Mouth: oropharynx normal and moist mucous membranes Throat: posterior oropharynx normal Eyes Conjunctivae: conjunctivae normal Neck Neck: full ROM and supple Chest Chest: normal inspection of the chest Resp Effort & Inspection: normal respiratory effort Auscultation: clear to auscultation bilaterally Cardio Rate: regular rate Rhythm: regular rhythm Heart Sounds: no murmurs and no rubs GI Inspection: normal to inspection Palpation: soft, nontender and other (non distended) Auscultation: normal bowel sounds Skin General skin exam: no rashes or lesions noted and other (pink, warm, dry) Neuro General: patient alert, patient awake and patient oriented x3 Speech: speech normal Motor: other (GAITAN) Sensory Exam: no sensory deficits noted Extrem General: normal to inspection, full ROM and pedal edema present Psych Mental Status: mental status grossly normal Speech and Movement: speech and movement normal Affect: normal affect Course Vital Signs Vital signs: Vital Signs Temperature 36.6 C 02/16/23 07:10 Pulse 89 02/16/23 07:10 Blood Pressure 161/82 H 02/16/23 07:10 Pulse Oximetry 100 02/16/23 07:10 Temperature 36.6 C 02/16/23 07:10 Pulse 89 02/16/23 07:10 Respiratory Rate 16 02/16/23 07:18 Respiratory Effort Normal, Non-Labored 02/16/23 07:18 Respiratory Depth Normal 02/16/23 07:18 Respiratory Pattern Normal 02/16/23 07:18 Blood Pressure 161/82 H 02/16/23 07:10 Blood Pressure Position Sitting 02/16/23 07:10 Pulse Oximetry 100 02/16/23 07:10 Oxygen Delivery Method Room Air 02/16/23 07:10 Oxygen Flow Rate 0 02/16/23 07:10 Pain Level 3 02/16/23 07:18
[2023-02-16 08:03] LABS: Abs Immature Grans 0.02 10^3/uL (0.0-0.06); Absolute Basophil Count 0.03 10^3/uL (0.0-0.2); Absolute Eosinophil Count 0.07 10^3/uL (0.0-0.7); Absolute Lymphocyte Count 1.64 10^3/uL (1.2-3.4); Absolute Monocyte Count 0.33 10^3/uL (0.1-0.8); Absolute Neutrophil Count 5.05 10^3/uL (1.2-6.7); Basophils % 0.4; HCT 40.4 % (36.0-46.0); HGB 13.8 g/dL (11.2-15.7); Immature Grans % 0.3; MCH 29.9 pg (27.0-33.0); MCHC 34.2 % (32.0-36.0); MCV 88 fL (80-95); MPV 10.4 fL (8.0-11.0); Monocytes % 4.6; Neutrophils % 70.7; Platelet Count 250 10^3/uL (130-400); RBC 4.61 10^6/uL (3.93-5.22); RDW 13.2 % (11.7-14.6); RDW-SD 42.4 fL; WBC 7.14 10^3/uL (4.4-10.8)
--- NOTE | 2023-02-16 08:15 | DI.US_ITS ---
Exam(s) US AAA SCREENING EXAM: US AAA SCREENING CLINICAL HISTORY: [facility] AAA both parents, abd pain COMPARISON: US US PELVIS TRANSVAGINAL from 06/04/2021 FINDINGS: There is no evidence of abdominal aortic aneurysm. Maximum diameter of the abdominal aorta is 2.4 cm proximally and the aorta tapers normally with diameter 1.7 cm just above the bifurcation. Both comm on iliac arteries exhibit upper normal size, measuring 10-11 mm. IMPRESSION: No evidence of significant abdominal aortic aneurysm. Also no significant aneurysmal dilatation of th e visualized common iliac arteries. DATA REPOSITORY:
[2023-02-16 08:43] LABS: ALT 32 U/L (14-59); AST 20 U/L (15-37); Albumin 4.1 g/dL (3.4-5.0); Alkaline Phosphatase 130 U/L (46-116); Anion Gap 9.3 mmol/L (3-11); BUN 19 mg/dL (7-18); Bilirubin, Total 0.4 mg/dL (0.2-1.0); CO2 27.7 mmol/L (21.0-32.0); CREATININE 0.8 mg/dL (0.55-1.02); Calcium 9.3 mg/dL (8.5-10.1); Chloride 103 mmol/L (98-107); Glucose 119 mg/dL (74-106); Magnesium 2.1 mg/dL (1.8-2.4); Potassium 3.3 mmol/L (3.5-5.1); Sodium 140 mmol/L (136-145); Total Protein 7.6 g/dL (6.4-8.2); Troponin I < 50 ng/L (<or=60)
[2023-02-16 08:57] LABS: D-Dimer 545 ng/mlFEU (<500)
[2023-02-16 09:13] LABS: Lipase 42 U/L (16-77)
--- NOTE | 2023-02-16 10:55 | NUR.NOTE ---
Nursing Note: 2nd trop drawn this RN. patients call light within reach at this time of writing
[2023-02-16] MEDS: Pantoprazole 40 MG TABCR 80 MG PO (11:23)
[2023-02-16] MEDS: Potassium Chloride 20 MEQ TABCR PO (11:23)
[2023-02-16] MEDS: Lisinopril 10 MG TAB PO (11:23)
[2023-02-16] MEDS: hydroCHLOROthiazide 12.5 MG TAB PO (11:38)
[2023-02-16 12:25] LABS: Troponin I < 50 ng/L (<or=60)
--- NOTE | 2023-02-16 17:52 | NUR.NOTE ---
Nursing Note: Referral faxed to PCP for chest pain, has risk factors, needs stress test/ this week.
== END 2023-02-16 12:32 | disposition home or self-care (01) ==
PROVIDERS: Emergency Medicine Emergency Medical Services; Emergency Provider Emergency Medicine; PCP Family Medicine
DX: K21.00 Gastro-esophageal reflux disease with esophagitis, without bleeding (principal); R07.9 Chest pain, unspecified
CPT/HCPCS: 36415; 76706; 80053; 83690; 93005; 99283; 71045; 83735; 84484; 85025; 85379; 93010; 99284

== ENCOUNTER 2023-06-08 09:48 | Outpatient (CLI) | payer BC, SELFPAY ==
--- NOTE | 2023-06-08 09:45 | RT.EKG_ITS ---
APPROVED REPORT Exam: Resting ECG Reason for Exam: Palpatations Patient Location: O HR:79 bpm ECG Measurements Heart Rate 79 AXIS DC 149 P 42 QRSd 92 QRS 70 QT 375 T 54 QTc 430 Conclusion Sinus rhythm...normal P axis, V-rate 50- 99 Normal Electrocardiogram
== END 2023-06-08 09:49 | disposition home or self-care (01) ==
LOC: DI.CM 09:48
PROVIDERS: PCP Family Medicine; Visit Provider Physician Assistant
DX: R07.89 Other chest pain (principal)
CPT/HCPCS: 93010

== ENCOUNTER 2023-06-08 10:52 | Outpatient (CLI) | payer BC, SELFPAY ==
[2023-06-08 12:19] LABS: Abs Immature Grans 0.02 10^3/uL (0.0-0.06); Absolute Basophil Count 0.04 10^3/uL (0.0-0.2); Absolute Eosinophil Count 0.04 10^3/uL (0.0-0.7); Absolute Lymphocyte Count 1.59 10^3/uL (1.2-3.4); Absolute Monocyte Count 0.35 10^3/uL (0.1-0.8); Absolute Neutrophil Count 5.99 10^3/uL (1.2-6.7); Basophils % 0.5; Eosinophils % 0.5; HCT 41.2 % (36.0-46.0); HGB 13.7 g/dL (11.2-15.7); Immature Grans % 0.2; Lymphocytes % 19.8; MCHC 33.3 % (32.0-36.0); MCV 90 fL (80-95); MPV 10.4 fL (8.0-11.0); Monocytes % 4.4; Neutrophils % 74.6; Platelet Count 273 10^3/uL (130-400); RBC 4.57 10^6/uL (3.93-5.22); RDW 13.4 % (11.7-14.6); WBC 8.03 10^3/uL (4.4-10.8)
[2023-06-08 12:50] LABS: Anion Gap 9.7 mmol/L (3-11); BUN 17 mg/dL (7-18); CO2 27.3 mmol/L (21.0-32.0); CREATININE 0.7 mg/dL (0.55-1.02); Calcium 9.7 mg/dL (8.5-10.1); Chloride 103 mmol/L (98-107); Glucose 97 mg/dL (74-106); Potassium 3.8 mmol/L (3.5-5.1); Sodium 140 mmol/L (136-145); TSH (W/Ref FT4) 0.56 uIU/mL (0.36-3.74)
[2023-06-09 11:34] LABS: Lyme Ab w Rflx to Lyme Confirm Negative (Negative)
[2023-06-10 15:00] LABS: Anaplasma phagocytophilum Negative (Negative); B. miyamotoi PCR Negative (Negative); Babesia divergens/MO-1 Negative (Negative); Babesia duncani Negative (Negative); Babesia microti Negative (Negative); Ehrlichia chaffeensis Negative (Negative); Ehrlichia ewingii/canis Negative (Negative); Ehrlichia muris eauclairensis Negative (Negative)
== END 2023-06-08 10:53 | disposition home or self-care (01) ==
PROVIDERS: PCP Family Medicine; Referring Provider Physician Assistant; Visit Provider Physician Assistant
DX: R00.2 Palpitations (principal); I10 Essential (primary) hypertension; E78.5 Hyperlipidemia, unspecified; R51.9 Headache, unspecified; M54.2 Cervicalgia
CPT/HCPCS: 36415; 80048; 87798; 84443; 85025; 86618

== ENCOUNTER → 2023-07-07 02:42 | Outpatient (CLI) | payer BC, SELFPAY ==
--- NOTE | 2023-07-07 09:40 | DI.RAD_ITS ---
Exam(s) RF BARIUM SWALLOW EXAM: RF BARIUM SWALLOW CLINICAL HISTORY: epigastric pain,HIATAL HERNIA,PEPTIC REFLUX DISEASE,K21.9,K44.9 TECHNIQUE: 2D and realtime digital imaging was performed. CONTRAST MATERIAL: Oral barium contrast was administered. COMPARISON: CR XR PORTABLE CHEST AP from 02/16/2023 FINDINGS: CHEST X-RAY: The heart and pulmonary vasculature are within normal limits. The lungs are clear. No pl eural effusion or pneumothorax is present. The bones are within normal limits for the patient's age. ESOPHAGRAM: The esophagus is patent with no evidence for erosions, fold thickening, strictures, or ma sses. With regards to the motility, there is a normal primary stripping wave. No tertiary contraction s were noted. There is a small hiatal hernia. There is no gastroesophageal reflux identified during the examination. IMPRESSION: 1. Small hiatal hernia. 2. No evidence of gastroesophageal reflux. RADIATION DOSE DELIVERED: lizandro Martinez=17.1 mGy
[2023-07-07] MEDS: Simethicone/Sod Bicarb/Cit Ac, 4 gram PACKET 1 PACKET PO (09:58)
[2023-07-07] MEDS: Barium Sulfate 60% W/V 355 ML BTL PO (09:59)
[2023-07-07] MEDS: Barium Sulfate 98% W/W 140 ML BTL PO (10:00)
== END ==
PROVIDERS: PCP Family Medicine; Visit Provider Family Medicine
DX: K21.9 Gastro-esophageal reflux disease without esophagitis (principal); K44.9 Diaphragmatic hernia without obstruction or gangrene
CPT/HCPCS: 74221; J3490

== ENCOUNTER 2023-08-23 05:40 | Outpatient (CLI) | payer BC, SELFPAY ==
[2023-08-23 16:52] LABS: ALT 31 U/L (14-59); AST 14 U/L (15-37); Albumin 3.9 g/dL (3.4-5.0); Alkaline Phosphatase 132 U/L (46-116); Anion Gap 9.1 mmol/L (3-11); BUN 20 mg/dL (7-18); Bilirubin, Total 0.2 mg/dL (0.2-1.0); CO2 28.9 mmol/L (21.0-32.0); CREATININE 0.9 mg/dL (0.55-1.02); Calcium 9.2 mg/dL (8.5-10.1); Chloride 102 mmol/L (98-107); Estimated GFR 76.92 (mL/min/1.73m2); Glucose 123 mg/dL (74-106); Lipase 67 U/L (16-77); Potassium 4.2 mmol/L (3.5-5.1); Sodium 140 mmol/L (136-145); Total Protein 7.4 g/dL (6.4-8.2)
[2023-08-23 16:55] LABS: Hemoglobin A1C 5.7 % (<5.7)
== END 2023-08-23 05:41 | disposition home or self-care (01) ==
PROVIDERS: PCP Family Medicine; Visit Provider Family Medicine
DX: K21.9 Gastro-esophageal reflux disease without esophagitis (principal); I10 Essential (primary) hypertension; E11.9 Type 2 diabetes mellitus without complications
CPT/HCPCS: 36415; 80053; 83690; 83036

== ENCOUNTER 2023-09-06 08:54 | Outpatient (CLI) | payer BC, SELFPAY ==
[2023-09-06 12:24] LABS: HCT 41.9 % (36.0-46.0); HGB 13.5 g/dL (11.2-15.7); MCH 29.4 pg (27.0-33.0); MCHC 32.2 % (32.0-36.0); MCV 91 fL (80-95); MPV 10.5 fL (8.0-11.0); Platelet Count 271 10^3/uL (130-400); RBC 4.59 10^6/uL (3.93-5.22); RDW 13.2 % (11.7-14.6); RDW-SD 43.5 fL; WBC 6.69 10^3/uL (4.4-10.8)
== END 2023-09-06 08:55 | disposition home or self-care (01) ==
LOC: LOS 08:55
PROVIDERS: PCP Family Medicine; Visit Provider Family Medicine
DX: K62.5 Hemorrhage of anus and rectum (principal)
CPT/HCPCS: 36415; 85027

== ENCOUNTER 2023-12-11 10:02 | Emergency (ER) | payer BC, SELFPAY ==
--- NOTE | 2023-12-11 10:00 | RT.EKG_ITS ---
APPROVED REPORT Exam: Resting ECG Reason for Exam: Chest Pain Patient Location: E HR:78 bpm ECG Measurements Heart Rate 78 AXIS AL 164 P 34 QRSd 93 QRS 76 QT 380 T 38 QTc 432 Conclusion Sinus rhythm. 78 no stemi
[2023-12-11 10:07] VITALS: BP 185/99; PULSE 81; RESP 20; O2SAT 98
[2023-12-11] MEDS: Aspirin 81 MG CHEW 324 MG CH (10:56)
[2023-12-11 11:08] LABS: Abs Immature Grans 0.02 10^3/uL (0.0-0.06); Absolute Basophil Count 0.03 10^3/uL (0.0-0.2); Absolute Eosinophil Count 0.12 10^3/uL (0.0-0.7); Absolute Lymphocyte Count 2.02 10^3/uL (1.2-3.4); Absolute Monocyte Count 0.37 10^3/uL (0.1-0.8); Absolute Neutrophil Count 3.49 10^3/uL (1.2-6.7); Basophils % 0.5 %; HCT 41.1 % (36.0-46.0); HGB 13.6 g/dL (11.2-15.7); Immature Grans % 0.3 %; Lymphocytes % 33.4 %; MCH 29.8 pg (27.0-33.0); MCHC 33.1 % (32.0-36.0); MCV 90 fL (80-95); MPV 10.5 fL (8.0-11.0); Monocytes % 6.1 %; Neutrophils % 57.7 %; Platelet Count 234 10^3/uL (130-400); RBC 4.57 10^6/uL (3.93-5.22); RDW-SD 42.5 fL; WBC 6.05 10^3/uL (4.4-10.8)
[2023-12-11 11:34] LABS: ALT 32 U/L (14-59); AST 20 U/L (15-37); Albumin 4.1 g/dL (3.4-5.0); Alkaline Phosphatase 121 U/L (46-116); Anion Gap 9.2 mmol/L (3-11); BUN 18 mg/dL (7-18); Bilirubin, Total 0.3 mg/dL (0.2-1.0); CO2 27.8 mmol/L (21.0-32.0); CREATININE 0.8 mg/dL (0.55-1.02); Calcium 9.1 mg/dL (8.5-10.1); Chloride 103 mmol/L (98-107); Glucose 118 mg/dL (74-106); NT-proBNP 30 pg/mL (<300); Potassium 3.4 mmol/L (3.5-5.1); Sodium 140 mmol/L (136-145); Total Protein 7.6 g/dL (6.4-8.2); Troponin I < 50 ng/L (< or =60)
[2023-12-11 11:43] LABS: D-Dimer 553 ng/mlFEU (<500)
--- NOTE | 2023-12-11 11:45 | DI.CT_ITS ---
Exam(s) CT CHEST PE CTA EXAM: CT CHEST PE CTA CLINICAL HISTORY: chest pain. TECHNIQUE: Imaging Protocol: Axial CT angiography was performed with multi-slice acquisition and mu lti-planar reconstructions as well as axial, coronal and sagittal MIP reconstructions. CONTRAST MATERIAL: Intravenous: Omnipaque 350 Contrast volume:100 ml COMPARISON: CT CT CHEST PE CTA from 06/25/[address] ABDOMEN PELVIS W from 09/27/2023 FINDINGS: Pulmonary Arteries: No evidence of filling defect to suggest pulmonary emboli. Tracheobronchial tree: No mucous plugging. Mediastinum and Lakshmi: No dominant adenopathy or fluid collection. Pulmonary parenchyma: No consolidation or dominant measurable mass. Stable micro nodule right upper l obe. No follow-up recommended. Pleura: No effusion or pneumothorax. Heart: The heart is not dilated. No coronary artery calcifications are seen. Aorta: Thoracic aorta non-dilated. No dissection. Upper abdomen: No acute findings. Diverticulosis. Bones: Mild scoliosis. Degenerative changes. Tubes, Catheters, and Lines: None Soft tissues: Status post right mastectomy. IMPRESSION: No evidence of pulmonary embolism or other acute abnormality. RADIATION DOSE DELIVERED: Total DLP DATA REPOSITORY: All CT scans at this facility are submitted to the National Radiology Data Registry (NRDR) Dose Index Registry (DIR) with the [employer] (ACR). RADIATION OPTIMIZATION: All CT scans at this facility use at least one of these dose optimization te chniques: automated exposure control; mA and/or kV adjustment per patient size (includes targeted exa ms where dose is matched to clinical indication); or iterative reconstruction.
--- NOTE | 2023-12-11 13:24 | DI.VRAD_ITS ---
PROCEDURE INFORMATION: Exam: CTA Chest With Contrast Exam date and time: 12/11/2023 12:48 PM Age: 53 years old Clinical indication: Other: Chest pain; Prior surgery; Surgery date: 6+ months; Surgery type: Masectomy 5 years ago TECHNIQUE: Imaging protocol: Computed tomographic angiography of the chest with contrast. Exam focused on the arteries. 3D rendering (Not supervised by radiologist): MIP and/or 3D reconstructed images were created by the technologist. Contrast material: OMNIPAQUE 350; Contrast volume: 100 ml; Contrast route: INTRAVENOUS (IV); COMPARISON: CT CHEST PE CTA 06/25/2022 3:28 AM FINDINGS: Pulmonary arteries: Normal. No pulmonary emboli. Aorta: Unremarkable. No aortic aneurysm. No aortic dissection. Lungs: There are atelectatic changes in the dependent portions of both lower lobes. There is a 3 mm nodule in the right upper lobe (series 5, image 101). Mild atelectasis of both lower lobes. Pleural spaces: Unremarkable. No pneumothorax. No pleural effusion. Heart: Unremarkable. No cardiomegaly. No pericardial effusion. Lymph nodes: Unremarkable. No enlarged lymph nodes. Stomach and bowel: There is diverticulosis of the left colon. Bones/joints: Mild curvature of the thoracic spine convex to the right. Mild curvature of the thoracic spine convex to the right. Mild multilevel anterior osteophytes of the thoracic spine. Soft tissues: Post right mastectomy. IMPRESSION: 1. No pulmonary embolism. 2. No acute infiltrates. Dictated and Authenticated by: Costa Trotter MD. Ordering:[facility] Titus Helm MD
[2023-12-11 13:53] VITALS: BP 151/98; PULSE 65; RESP 16; O2SAT 98
[2023-12-11 14:10] LABS: Troponin I < 50 ng/L (< or =60)
[2023-12-11 14:42] VITALS: BP 151/98; PULSE 65; RESP 16; O2SAT 98
--- NOTE | 2023-12-11 15:35 | ED.GENADUL_ITS ---
Discharge Plan Disposition Patient Disposition: Home Condition: Stable Discharge Details Clinical Impression: Chest pain Primary Care Provider: Katheryn Velasquez ED Provider: Williams Qureshi Home Meds and New Rx's Prescriptions: No Action sucralfate [Carafate] 1 gram tablet 1 g PO BID PRN (Reason: heartburn) Qty: 30 0RF cholecalciferol (vitamin D3) 125 mcg (5,000 unit) capsule 125 mcg PO DAILY benzonatate 100 mg capsule 100 mg PO TID PRN (Reason: cough) Qty: 14 0RF potassium chloride 20 mEq tablet extended release 20 meq PO DAILY Qty: 90 5RF lisinopril-hydrochlorothiazide 10-12.5 mg tablet 1 tab PO DAILY Qty: 90 4RF omeprazole 40 mg capsule,delayed release(DR/EC) 40 mg PO DAILY Qty: 90 3RF acetaminophen [Tylenol Extra Strength] 500 mg tablet 1,000 mg PO BID PRN (Reason: Pain) loratadine 10 mg Capsule 10 mg PO DAILY vitamin B complex Capsule 1 cap PO DAILY coenzyme Q10 100 mg Tablet,Chewable 100 mg PO DAILY [id number]-Ca carb-vit K 18 mg iron-400 mcg-500 mg Tablet 1 tab PO DAILY Discharge Instructions Instructions: Chest Pain (ED) Additional Instructions: YOU HAVE BEEN REFERRED FOR OUTPATIENT STRESS TESTING PLEASE FOLLOW UP WITH PCP RETURN TO ED WITH ANY CONCERNING SYMPTOMS Discharge Data Discharge Date/Time-TO BE ENTERED AT DEPARTURE: 12/11/23 14:43 HPI General Date/Time Provider Initiated Documentation: 12/11/23 10:43 . Limitations to Documentation: no limitations . Information obtained by: patient . HPI Narrative: 53-year-old female with past medical history of breast cancer, hypertension presents for evaluations of palpitation and chest pain. She reports a fluttering type sensation for the last several days. This is also been associated with some tight sensation under her left breast. She is also noted some very mild cramping pain in the left calf. She has never had a blood clot before, but her mom recently from a pulmonary embolism. She does not smoke. The symptoms have not been associated with shortness of breath, nausea or significant chest pain. Related Data Home Medications Medication Instructions Recorded Confirmed acetaminophen 500 mg tablet 1,000 mg PO BID PRN Pain 04/06/19 11/13/23 (Tylenol Extra Strength) loratadine 10 mg capsule 10 mg PO DAILY 06/25/22 11/13/23 potassium chloride 20 mEq 20 meq PO DAILY #90 tabs 09/28/22 11/13/23 tablet,extended release lisinopril 10 1 tab PO DAILY #90 tabs 10/05/22 11/13/23 mg-hydrochlorothiazide 12.5 mg tablet coenzyme Q10 100 mg chewable tablet 100 mg PO DAILY 02/16/23 11/13/23 qzcsmcbk-ahn-ndpe-FA-Ca carb-vit K 1 tab PO DAILY 02/16/23 11/13/23 18 mg iron-400 mcg-500 mg tablet vitamin B complex 1 cap PO DAILY 02/16/23 11/13/23 sucralfate 1 gram tablet (Carafate) 1 g PO BID PRN heartburn #30 tabs 06/10/23 11/13/23 omeprazole 40 mg capsule,delayed 40 mg PO DAILY #90 caps 06/13/23 11/13/23 release benzonatate 100 mg capsule 100 mg PO TID PRN cough #14 caps 11/13/23 11/13/23 cholecalciferol (vitamin D3) 125 125 mcg PO DAILY 11/13/23 11/13/23 mcg (5,000 unit) capsule Previous Rx's Medication Instructions Recorded potassium chloride 20 mEq 20 meq PO DAILY #90 tabs 09/28/22 tablet,extended release lisinopril 10 1 tab PO DAILY #90 tabs 10/05/22 mg-hydrochlorothiazide 12.5 mg tablet sucralfate 1 gram tablet (Carafate) 1 g PO BID PRN heartburn #30 tabs 06/10/23 omeprazole 40 mg capsule,delayed 40 mg PO DAILY #90 caps 06/13/23 release benzonatate 100 mg capsule 100 mg PO TID PRN cough #14 caps 11/13/23 Allergies Allergy/AdvReac Type Severity Reaction Status Date / Time topiramate [From Topamax] AdvReac Mental Verified 11/13/23 09:37 changes General Stated Complaint: Chest Pain KEVIN: 3 Exam Narrative Exam Narrative: Review of Systems: All systems reviewed & are unremarkable except as noted in HPI and below Well-developed, no acute distress NCAT PERRL, normal conjunctiva RRR, no murmur, nontender Unlabored respiratory effort, clear bilaterally Nondistended abdomen Extremities w/o deformity, no cyanosis, no edema No calf swelling or tenderness No rashes or lesions. no focal neurologic deficits Appropriate mood and affect Course Vital Signs Vital signs: Vital Signs Pulse 81 12/11/23 10:07 Respiratory Rate 20 12/11/23 10:07 Blood Pressure 185/99 H 12/11/23 10:07 Pulse Oximetry 98 12/11/23 10:07 Pulse 65 12/11/23 14:42 Respiratory Rate 16 12/11/23 14:42 Respiratory Effort Normal 12/11/23 14:42 Respiratory Depth Normal 12/11/23 14:42 Respiratory Pattern Normal 12/11/23 14:42 Blood Pressure 151/98 H 12/11/23 14:42 Blood Pressure Position Sitting 12/11/23 10:07 Pulse Oximetry 98 12/11/23 14:42 Oxygen Delivery Method Room Air 12/11/23 13:53 Oxygen Flow Rate 0 12/11/23 13:53 Pain Level 4 12/11/23 10:07 Lab/Test Results Lab/Test Results: Laboratory Tests Range/Units 12/11/23 12/11/23 10:20 13:47 WBC (4.4-10.8) 10^3/uL 6.05 RBC (3.93-5.22) 10^6/uL 4.57 Hgb (11.2-15.7) g/dL 13.6 Hct (36.0-46.0) % 41.1 MCV (80-95) fL 90 MCH (27.0-33.0) pg 29.8 MCHC (32.0-36.0) % 33.1 RDW (11.7-14.6) % 13.0 Plt Count (130-400) 10^3/uL 234 MPV (8.0-11.0) fL 10.5 Immature Gran % % 0.3 Neutrophils % % 57.7 Lymphocytes % % 33.4 Monocytes % % 6.1 Eosinophils % % 2.0 Basophils % % 0.5 Nucleated RBC % (0.0-0.3) % 0.0 Absolute Neutrophils (1.2-6.7) 10^3/uL 3.49 Absolute Lymphocytes (1.2-3.4) 10^3/uL 2.02 Absolute Monocytes (0.1-0.8) 10^3/uL 0.37 Absolute Eosinophils (0.0-0.7) 10^3/uL 0.12 Absolute Basophils (0.0-0.2) 10^3/uL 0.03 D-Dimer (<500) ng/mlFEU 553 H Sodium (136-145) mmol/L 140 Potassium (3.5-5.1) mmol/L 3.4 L Chloride (98-107) mmol/L 103 Carbon Dioxide (21.0-32.0) mmol/L 27.8 Anion Gap (3-11) mmol/L 9.2 BUN (7-18) mg/dL 18 Creatinine (0.55-1.02) mg/dL 0.8 Est GFR (CKD-EPI 2020) (mL/min/1.73m2) 88.60 Glucose (74-106) mg/dL 118 H Calcium (8.5-10.1) mg/dL 9.1 Magnesium (1.8-2.4) mg/dL 2.0 Total Bilirubin (0.2-1.0) mg/dL 0.3 AST (15-37) U/L 20 ALT (14-59) U/L 32 Alkaline Phosphatase (46-116) U/L 121 H Troponin I (< or =60) ng/L < 50 < 50 NT-Pro-B Natriuret Pep (<300) pg/mL 30 Total Protein (6.4-8.2) g/dL 7.6 Albumin (3.4-5.0) g/dL 4.1 Medical Decision Making Emergent evaluation of palpitations and chest pain. Initial differential includes palpitations, cardiac dysrhythmia, less likely ACS, pulmonary embolism. The patient's EKG is without acute ischemic change. She is asymptomatic at this time. She endorses calf tenderness, but there is no appreciable swelling. She does have remote history of breast cancer, but otherwise no risk factors for development of DVT. Lab work obtained. Her D-dimer is only slightly above normal at 553. CTA was ordered and this was unremarkable. Serial troponins negative. The CT scan did note a 3 mm nodule which is fairly small. Patient is not a smoker, but she does have a history of breast cancer. Advised to follow-up with her oncology team or PCP for routine screening of this nodule. I have ordered an outpatient stress test for further cardiac rule out. Return precautions advised. Recommend close follow-up with PCP. Medical Records Medical records reviewed: Yes I reviewed the patient's medical records. Lab Data Lab results reviewed: Yes I reviewed the patient's lab results. Quality:SDOH Health Related Social Needs: No Data to Display PFSH All Active Problems Chest pain (Acute) Otalgia, right ear (Acute) Abnormal CT of the abdomen (Acute) Abdominal pain (Acute) Rectal bleeding (Acute) Annual physical exam (Acute) Dry eyes (Acute) Arthralgia (Acute) Ovarian cyst (Acute) Diverticulosis (Acute) Headache (Acute) Chest pain (Acute) Prediabetes (Acute) Stenosing tenosynovitis (Acute) Plantar fasciitis (Acute) Cervical pain (neck) (Acute) Left ovarian cyst (Acute) Encounter for annual physical exam (Acute) Disc herniation (Acute) Reflex abnormality (Acute) Quadriceps weakness (Acute) Spondylolisthesis at L5-S1 level (Acute) increase from 10 to 20% in 6 years Vitamin D deficiency (Acute) Palpitations (Acute) Chronic gastritis (Acute) Breast cancer (Chronic) R mastectomy Shortness of breath (Chronic) CXR-normal. lab-normal; PFT-? asthma-decreased FEV1/FVC; no response to albuterol; increased diffusion capacity Peptic reflux disease (Chronic 07/26/13) with dysphagia normal barium swallow Low back pain (Chronic) spondylolisthesis 08/22 Intractable migraine without aura and with status migrainosus (Chronic 12/24/15) Hyperlipidemia (Chronic) Hiatal hernia (Chronic) by barium swallow Essential hypertension (Chronic 07/21/13) Depressive disorder (Chronic) Degeneration of cervical intervertebral disc (Chronic) xray-C5-6 DDD/mild DJD Chronic daily headache (Chronic 12/24/15) Medical History Near syncope (11/05/15) Left groin pain (12/25/14) BV (bacterial vaginosis) Rx with Flagyl 01/06/16 Surgical History S/P right mastectomy Ligation of fallopian tube Vaginal hysterectomy (04/22/16) Endometrial Biopsy (08/26/11) Endometrial Ablation (~2011) EGD - MAC (08/13/14) DR. MCDANIEL Family History Father Aorta aneurysm Hypertension Hyperlipidemia Cancer of kidney 1/5 of kidney removed Heart disease Alcohol abuse Mother Aorta aneurysm Hypertension Hyperlipidemia Aunt/Uncle Aorta aneurysm Sister Bipolar 1 disorder Son Alcohol abuse Depression Diabetes Son Asthma Daughter Depression Daughter Depression Maternal Grandfather , in his 70s No problems noted. Paternal Grandfather No problems noted. Maternal Grandmother , in her 40s Brain aneurysm Paternal Grandmother , 82 Heart disease Hypertension Stroke Social History Smoking/Tobacco Use Status: Never Second Hand Exposure: Yes Smoking risk assessment performed?: Yes Alcohol Intake: never Drug use: Never Substance use type: does not use Caregiver/Support person: No Household members: spouse and children Housing: house Communication Needs: None Do you need help understanding health information?: Never current occupation: [employer]. Pets and animals: Yes Pets and animals: dog(s) and other Details: RABBIT Sexually active: Yes Do you think of yourself as: straight/heterosexual Current gender identity: female What is your relationship status?: How often do you talk on the phone with friends or family?: three or more times per week How often do you get together with friends or relatives?: three or more times per week How often do you attend mormon or congregation services?: decline to answer Do you belong to any clubs or organized social groups?: yes Panel score (0-1 are the most socially isolated patients): 3 What type of physical activity do you participate in: none Augustina/Zoroastrianism: No preference Special augustina needs: No Seatbelt use: always Drive intox or ride w/intox cdl driver: No Do you feel safe at home: Yes Do you feel safe in your relationship?: Yes Victim of physical abuse: No Victim of emotional abuse: No Victim of sexual abuse: No Would you like helpful sources: No Female Reproductive History Menstrual Menopause type: surgical
== END 2023-12-11 14:43 | disposition home or self-care (01) ==
PROVIDERS: Emergency Provider Emergency Medicine; PCP Family Medicine
DX: R00.2 Palpitations (principal); R07.9 Chest pain, unspecified; R91.1 Solitary pulmonary nodule; I10 Essential (primary) hypertension; E78.5 Hyperlipidemia, unspecified; Z85.3 Personal history of malignant neoplasm of breast; Z83.6 Family history of other diseases of the respiratory system
CPT/HCPCS: 71275; 80053; 93005; 99285; 83735; 83880; 84484; 85025; 85379; 93010; 99284

== ENCOUNTER → 2023-12-16 00:40 | Outpatient (CLI) | payer BC, SELFPAY ==
--- NOTE | 2023-12-16 10:45 | DI.US_ITS ---
APPROVED REPORT EXAM: Comprehensive 2D, Doppler, and color-flow Echocardiogram Patient Location: Out-Patient Animal Husbandry Technician: Skye Douglas RDCS (AE) Indications: Chest pain Other Information Study Quality: Adequate Conclusion Normal left ventricular wall thickness and chamber size. Ejection fraction is 57%. Wall motion is n ormal Normal right ventricular size and function Both atria are normal in size There is no structural or hemodynamically significant valvular disease Estimated right ventricular systolic pressure is 27 mmHg Wall motion Left Ventricle The left ventricle is normal size. The left ventricular systolic function is normal. The left ventric ular ejection fraction is within the normal range. There is normal left ventricular wall thickness. T here is normal LV segmental wall motion. There is no ventricular septal defect visualized. LVEF is 57 %. Right Ventricle The right ventricle is normal size. The right ventricular systolic function is normal. Atria The left atrium size is normal. The right atrium size is normal. The interatrial septum is intact wit h no evidence for an atrial septal defect. Aortic Valve The aortic valve is normal in structure. Aortic valve is trileaflet. There is no aortic valvular sten osis. No aortic regurgitation is present. Mitral Valve The mitral valve is normal in structure. No evidence of mitral valve stenosis. Trace mitral regurgita tion. Tricuspid Valve The tricuspid valve is normal in structure. There is no tricuspid valve stenosis. Trace tricuspid reg urgitation. The RVSP is 27.0 mmHg. Pulmonic Valve The pulmonary valve is normal in structure. There is no pulmonic valvular stenosis. There is no pulmo parris valvular regurgitation. Great Vessels The aortic root is normal in size. The ascending aorta is normal in size. IVC is normal in size and c ollapses >50% with inspiration. Pericardium There is no pericardial effusion. 2D Dimensions IVSD d PLAX 0.94 cm F: 0.6-1.0 Ao Root d 2.92 cm F: 2.7 - 3.3 LVPW d PLAX 0.90 cm F: 0.6 - 1.0 Ao Asc Diam d 3.00 cm F: 2.3 - 3.1 LVID d PLAX 4.17 cm F: 3.8 - 5.2 LVDs 2.94 cm F: 2.2 - 3.5 LV EF Teichholz 56.8 % FS 29.46 % LV EDV (Teich) 77.1 mL LV ESV (Teich) 33.3 mL M-Mode TAPSE 2.34 cm (M/F) >1.7 Auto EF LV EDV A4C 98.5 mL LV EDV A2C 113.0 mL LV EDV BP 105.5 mL LV ESV A4C 44.4 mL LV ESV A2C 50.7 mL LV ESV BP 47.7 mL LVEF(%) A4C 55.0 % LVEF(%) A2C 55.1 % LVEF(%) BP 54.8 % LV SV A4C 54.2 ml LV SV A2C 62.3 ml LV SV BP 57.9 ml LV CO A4C 3.3 L/min LV CO A2C 4.1 L/min LV CO BP 3.7 L/min HR A4C 61.54 BPM HR A2C 66.28 BPM LV EDV Index (BP) LA Volume LA Length A4C 5.1 cm LA Length A2C 3.7 cm LA Area A4C s 17.28 cm2 LA Area A2C s 10.85 cm2 LA Vol A4C A-L 49.34 mL LA Vol A2C A-L 27.21 mL LA Vol Biplane A-L 43.3 mL LA Vol/BSA A4C A-L LA Vol/BSA A2C A-L LA Vol/BSA BP A-L 23.7 mL/m2 LA Vol A4C MOD 46.7 mL LA Vol A2C MOD 25.4 mL LA Vol BP MOD 40.5 mL RA Volume RA Area A4C 12.4 cm2 RA ESV A4C (A-L) 27.1mL RA Vol/BSA A4C A-L RA Length A4C 4.8 cm RA ESV A4C (MOD) 25.8mL LV Diastology MV E' medial 0.142 (>0.07 m/s) MV E Vmax 0.97 (0.4-1.3 m/s) MV E/E' MED 6.84 (<14) MV A Vmax 0.95 (0.4-1.3 m/s) MV E' lateral 0.138 (>0.1 m/s) E/A Ratio 1.0 MV E/E' LAT 7.01 (<14) MV E' Average 0.140 m/s MV E/E'(average) 6.92 Aortic Valve AoV Vmax 1.24 m/s LVOT Vmax 1.10 m/s AoV Peak Grad 6.2 mmHg LVOT Peak Grad 4.9 mmHg AoV Area (Vmax) 2.57 cm2 LVOT VTI 0.246 m AoV VTI 0.310 m LVOT Mean Grad 2.8 mmHg AoV Mean Papi. 0.94 m/s LVOT SV 71.00 mL AoV Mean Grad 3.9 mmHg LVOT Diam s 1.90 cm AoV Area (VTI) 2.29 cm2 Velocity Ratio 0.89 Mitral Valve MV DT 133 (160-240 msec) MV Vmax TIPS 1.07 m/s MV Mean Grad 2.2 (<2mmHg) MV VTI 0.301 m Pulmonary Valve PV Vmax 0.90 (0.5-1.5 m/s) RVOT Vmax 0.88 m/s PV Peak Grad 3.2 mmHg RVOT Peak Gr. 3.1 mmHg PV Mean Papi 0.71 m/s RVOT VTI 0.201 m PV Mean Grad 2.2 mmHg RVOT Mean Gr. 2.0 mmHg Tricuspid Valve RA Pressure 3.00 mmHg TR Vmax 2.45 m/s TV S' 0.12 m/s TR Peak Grad 24.0 mmHg RVSP (TR) 27.0 mmHg
== END ==
PROVIDERS: PCP Family Medicine; Visit Provider Family Medicine
DX: R07.9 Chest pain, unspecified (principal); I34.0 Nonrheumatic mitral (valve) insufficiency
CPT/HCPCS: 93306

== ENCOUNTER → 2023-12-20 00:50 | Outpatient (CLI) | payer BC, SELFPAY ==
--- NOTE | 2023-12-20 09:00 | ETT_ITS ---
APPROVED REPORT Exam: Exercise Treadmill Patient Location: Out-Patient Room/Bed: Stress Nurse: Esperanza Javier RN, Chacha Ramos RN Ordering Provider:TAMIA PRICEDorothy HENDERSON, Contact Number: [phone] BMI: 30.55 Baseline Rhythm: Sinus Rhythm Indications: chest pain Medical History Medical History: near syncope, R mastectomy, family history aortic aneurysm, prediabetes, palpitation s, HTN, HLD, depression, chronic daily H/A Cardiac Medications: lisinopril-hydrochlorothiazide, omeprazole, potassium chloride, carafate Allergies: topamax Cardiac Risk Factors: family hx, HTN, prediabetes, HLD Previous Cardiac Procedures: none Pretest Chest Pain Characteristics: none Exercise History: Sedentary Physical Disabilities: none Lung Sounds: clear Heart Sounds: regular Stress Test Details Test: Exercise stress testing was performed using a Jai protocol. Rest Stress HR Resting HR Supine: 82 bpm Max Heart Rate (APMHR): 168 bpm Resting HR Standin bpm Target HR (85% APMHR): 143 bpm Max HR Achieved: 160 bpm % of APMHR: 95 Recovery HR: 94 bpm HR response to stress: Normal HR response to stress BP Resting BP Supine: 146/82 mmHg Resting BP Standin/98 mmHg Max BP: 182/96 mmHg Recovery BP: 144/90 mmHg BP response to stress: Normal blood pressure response to stress. ECG Resting ECG: Sinus Rhythm Stress ECG: Sinus Tachycardia ST Change: No significant ST segment changes noted Recovery ECG: Sinus Rhythm Recovery ST Change: No significant ST segment changes noted Clinical Reason for Termination: Target HR Achieved Stress Symptoms: General Fatigue Exercise duration: 05 min59 sec Highest Stage Reached: Stage 2: 2.5 mph at 12% grade. Exercise capacity: 7.05 METs Angina Score: None [place] Treadmill Score: 5.5 Rate Pressure Product: [id number] Stress ECG Conclusion 1. Resting electrocardiogram was normal 2. Patient exercised on the Jai protocol completed workload of 7.05 METS 3. Normal heart rate and blood pressure response to exercise. The patient achieved 95% of predicted heart rate for age 4. There was no electrocardiographic evidence of myocardial ischemia 5. There were no significant dysrhythmias [place] Treadmill Score is 5.5 which is Low risk. Stress Test Summary STAGE Time (mins) Speed (mph) Grade (%) HR BP SpO2 SYMPTOMS METS Supine 85 146/82 Standing 89 158/98 98 1 3 1.7 10 138 168/98 98 4.5 2 6 2.5 12 160 7 1 min recovery 118 182/96 98 3 min recovery 100 152/88 98 6 min recovery 94 144/90 96
== END ==
PROVIDERS: PCP Family Medicine; Visit Provider Emergency Medicine
DX: R07.9 Chest pain, unspecified (principal)
CPT/HCPCS: 93017

== ENCOUNTER → 2024-02-28 01:16 | Outpatient (CLI) | payer BC, SELFPAY ==
--- NOTE | 2024-02-28 07:15 | DI.CT_ITS ---
Exam(s) CT BRAIN NECK CTA EXAM: CT BRAIN NECK CTA CLINICAL HISTORY: Pulsatile tinnitus right ear,FAMILY H/O ANEURYSM OF BRAIN,H93.41,Z82.49. TECHNIQUE: Imaging Protocol: Axial CT angiography was performed with multi-slice acquisition and mu lti-planar and/or 3D reconstructions. CONTRAST MATERIAL: Intravenous: Omnipaque 350 Contrast volume:structured data in ml COMPARISON: CT HEAD WITHOUT CONTRAST from 01/11/2011 MR MRI - BRAIN WO CONTRAST from 01/03/2016 FINDINGS: CTA Neck W: Aortic arch anatomy: The aortic arch anatomy is conventional and there is no significant stenosis at the origin of the great vessels off of the aortic arch. No intimal flap evident. Anterior circulation: Both common carotid arteries ascend with normal luminal diameters. At the level the carotid bulbs and proximal internal carotid arteries there is no plaque evident on t he left side and minimal calcified plaque on the right side anteriorly in the carotid bulb-proximal I CA less than 10 percent stenosis. Internal carotid arteries in the upper neck are patent, normal caliber, and non tortuous. The nurse intern al carotid arteries are also patent in the skull base-carotid canals without evidence of significant narrowing nor dissection or aneurysms at this level Posterior circulation: Both vertebral arteries originate in conventional fashion off of the subclavian arteries and there is no obvious stenosis at the origin of the vertebral arteries. Both vertebral arteries exhibit normal luminal diameters within the foramen transversarium. Both vertebral arteries contribute to the formation of the basilar artery at the skull base. CTA Brain W: Anterior circulation: Both internal carotid arteries are patent in the skull base-carotid canals as well as within the cave rnous sinuses. The supraclinoid aspects of the ICAs are patent. Both A1 segments are patent as are the anterior cer ebral arteries and there is no evidence of aneurysm at the level of the anterior communicating artery . Both middle cerebral arteries are patent with no evidence of significant stenosis nor intraluminal th rombus. There also no aneurysms of these vessels. Posterior circulation: The basilar artery is formed by both vertebral arteries.. Distally it gives off patent bilateral sup erior cerebellar arteries. Above this level the basilar artery terminates as patent bilateral posterior cerebral arteries. There is no evidence of aneurysm at the tip of the basilar artery nor elsewhere in the [id number] is. CT BRAIN: There is no evidence of intracranial hemorrhage, mass effect, or shift of midline structures. There are no extra-axial fluid collections. Ventricles are not enlarged or shifted. There is a sub lentic ular hypodensity in the right-side measuring 5 x 5 mm which is probably developmental sub lenticular cyst. Similar findings not seen on the opposite-left side. There are no ring enhancing lesions in the brain and no abnormal meningeal enhancement. IMPRESSION: 1. Patent carotid arteries in the neck. No hemodynamically significant stenosis. 2. Patent vertebral arteries. 3. Patent intracranial arteries. No aneurysms. 4. 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 Unchanged fr om MRI scan of December 2015. RADIATION DOSE DELIVERED: Total DLP DATA REPOSITORY: All CT scans at this facility are submitted to the National Radiology Data Registry (NRDR) Dose Index Registry (DIR) with the [employer] (A[employer]). RADIATION OPTIMIZATION: All CT scans at this facility use at least one of these dose optimization te chniques: automated exposure control; mA and/or kV adjustment per patient size (includes targeted exa ms where dose is matched to clinical indication); or iterative reconstruction.
[2024-02-28 14:29] LABS: CREATININE 0.8 mg/dL (0.55-1.02); Estimated GFR 88.05 (mL/min/1.73m2)
[2024-02-28] MEDS: Omnipaque 350 MG/ML 100 ML BTL 85 ML IJ (14:44)
[2024-02-28] MEDS: Normal Saline - Diluent 50 ML VIAL IJ (14:45)
== END ==
PROVIDERS: PCP Family Medicine; Visit Provider Otolaryngology
DX: H93.A1 Pulsatile tinnitus, right ear (principal); Z82.49 Family history of ischemic heart disease and other diseases of the circulatory system; G93.0 Cerebral cysts
CPT/HCPCS: 70496; 70498; 82565; J3490

== ENCOUNTER 2024-04-04 19:58 | Emergency (ER) | payer BC, SELFPAY ==
[2024-04-04] VITALS (36 sets, daily range): BP systolic 146–177; BP diastolic 76–102; PULSE 70–86; RESP 18; O2SAT 96–100
--- NOTE | 2024-04-04 19:45 | RT.EKG_ITS ---
APPROVED REPORT Exam: Resting ECG Reason for Exam: high bp Patient Location: E HR:80 bpm ECG Measurements Heart Rate 80 AXIS ME 164 P 40 QRSd 88 QRS 78 QT 366 T 52 QTc 422 Conclusion Sinus rhythm Rate 80 No STEMI
[2024-04-04 20:47] LABS: Abs Immature Grans 0.01 10^3/uL (0.0-0.06); Absolute Basophil Count 0.04 10^3/uL (0.0-0.2); Absolute Eosinophil Count 0.14 10^3/uL (0.0-0.7); Absolute Lymphocyte Count 2.81 10^3/uL (1.2-3.4); Absolute Monocyte Count 0.39 10^3/uL (0.1-0.8); Absolute Neutrophil Count 3.65 10^3/uL (1.2-6.7); Basophils % 0.6 %; HCT 36.2 % (36.0-46.0); HGB 12.2 g/dL (11.2-15.7); Immature Grans % 0.1 %; Lymphocytes % 39.9 %; MCH 30.3 pg (27.0-33.0); MCHC 33.7 % (32.0-36.0); MCV 90 fL (80-95); MPV 9.8 fL (8.0-11.0); Monocytes % 5.5 %; Neutrophils % 51.9 %; Platelet Count 205 10^3/uL (130-400); RBC 4.03 10^6/uL (3.93-5.22); RDW 12.6 % (11.7-14.6); WBC 7.04 10^3/uL (4.4-10.8)
[2024-04-04] MEDS: Famotidine 20 MG/2 ML VIAL IVP (21:00)
[2024-04-04 21:14] LABS: ALT 30 U/L (14-59); AST 19 U/L (15-37); Albumin 3.6 g/dL (3.4-5.0); Alkaline Phosphatase 102 U/L (46-116); Anion Gap 8.4 mmol/L (3-11); BUN 21 mg/dL (7-18); Bilirubin, Total 0.19 mg/dL (0.2-1.0); CO2 26.6 mmol/L (21.0-32.0); CREATININE 0.9 mg/dL (0.55-1.02); Calcium 9.2 mg/dL (8.5-10.1); Chloride 103 mmol/L (98-107); Estimated GFR 76.44 (mL/min/1.73m2); Glucose 107 mg/dL (74-106); Lipase 57 U/L (16-77); Potassium 3.6 mmol/L (3.5-5.1); Sodium 138 mmol/L (136-145); TSH 1.24 uIU/Ml (0.36-3.74); Total Protein 6.8 g/dL (6.4-8.2); Troponin I < 50 ng/L (< or =60)
--- NOTE | 2024-04-04 22:49 | W.ED.GENAD ---
Discharge Plan Disposition Patient Disposition: Home Condition: Stable Discharge Details Clinical Impression: Atypical chest pain Primary Care Provider: Katheryn Velasquez ED Provider: Neena Gray Home Meds and New Rx's Prescriptions: Continued 5-hydroxytryptophan(5HTP)-B6-C 50-4-60 mg tablet,delayed release (DR/EC) PO DAILY fluticasone propionate [Allergy Relief (fluticasone)] 50 mcg/actuation spray,suspension 1 spray intranasal BID Rx Instructions: administer into each nostril famotidine [Pepcid] 20 mg tablet 20 mg PO DAILY omeprazole 40 mg capsule,delayed release(DR/EC) 40 mg PO DAILY Qty: 90 3RF potassium chloride 20 mEq tablet extended release 20 meq PO DAILY Qty: 90 5RF lisinopril-hydrochlorothiazide 10-12.5 mg tablet 1 tab PO DAILY Qty: 90 4RF acetaminophen [Tylenol Extra Strength] 500 mg tablet 1,000 mg PO BID PRN (Reason: Pain) loratadine 10 mg Capsule 10 mg PO DAILY vitamin B complex Capsule 1 cap PO DAILY coenzyme Q10 100 mg Tablet,Chewable 100 mg PO DAILY vg-az-ubcb-FA-Ca carb-vit K 18 mg iron-400 mcg-500 mg Tablet 1 tab PO DAILY No Action lisinopril-hydrochlorothiazide 20-12.5 mg tablet 1 tab PO DAILY Qty: 90 4RF sertraline 50 mg tablet 50 mg PO DAILY Qty: 90 4RF Discharge Instructions Instructions: Chest pain Additional Instructions: please follow-up with Dr Velasquez tomorrow continue on omeprazole and pepcid daily have blood pressure rechecked this week your chest xray shows slight atelectasis, but improved from prior return earlier with new or worsening complaints Discharge Data Discharge Date/Time-TO BE ENTERED AT DEPARTURE: 04/05/24 01:21 HPI General Date/Time Provider Initiated Documentation: 04/04/24 20:03. HPI Narrative: 54-year-old female with history of GERD, hypertension presents with report of epigastric pain with radiation to her jaw. States this occurred at rest. She denies any exertional component of her symptoms. States she has had this in the past few days. She felt lightheaded this evening. She denies any current shortness of breath, persistent Swelling, recent surgeries, long drives with a family history of coronary artery disease, mild succumbed to PA at 70 per patient. Denies any fever or chills. Related Data Home Medications ?Medication ?Instructions ?Recorded ?Confirmed acetaminophen 500 mg tablet 1,000 mg PO BID PRN Pain 04/06/19 04/04/24 (Tylenol Extra Strength) loratadine 10 mg capsule 10 mg PO DAILY 06/25/22 04/04/24 coenzyme Q10 100 mg chewable tablet 100 mg PO DAILY 02/16/23 04/04/24 zumpaapa-kge-ebdl-FA-Ca carb-vit K 1 tab PO DAILY 02/16/23 04/04/24 18 mg iron-400 mcg-500 mg tablet vitamin B complex 1 cap PO DAILY 02/16/23 04/04/24 omeprazole 40 mg capsule,delayed 40 mg PO DAILY #90 caps 06/13/23 04/04/24 release potassium chloride 20 mEq 20 meq PO DAILY #90 tabs 12/20/23 04/04/24 tablet,extended release lisinopril 10 1 tab PO DAILY #90 tabs 01/19/24 04/04/24 mg-hydrochlorothiazide 12.5 mg tablet 5-hydroxytryptophan(5HTP) 50 mg-B6 tab PO DAILY 02/03/24 04/03/24 4 mg-C 60 mg tablet,delayed release famotidine 20 mg tablet (Pepcid) 20 mg PO DAILY 02/03/24 04/04/24 fluticasone propionate 50 1 spray intranasal BID 02/03/24 04/04/24 mcg/actuation nasal spray,suspension (Allergy Relief (fluticasone)) lisinopril 20 1 tab PO DAILY #90 tabs 04/05/24 mg-hydrochlorothiazide 12.5 mg tablet sertraline 50 mg tablet 50 mg PO DAILY #90 tabs 04/05/24 Previous Rx's ?Medication ?Instructions ?Recorded omeprazole 40 mg capsule,delayed 40 mg PO DAILY #90 caps 06/13/23 release potassium chloride 20 mEq 20 meq PO DAILY #90 tabs 12/20/23 tablet,extended release lisinopril 10 1 tab PO DAILY #90 tabs 01/19/24 mg-hydrochlorothiazide 12.5 mg tablet lisinopril 20 1 tab PO DAILY #90 tabs 04/05/24 mg-hydrochlorothiazide 12.5 mg tablet sertraline 50 mg tablet 50 mg PO DAILY #90 tabs 04/05/24 Allergies Allergy/AdvReac Type Severity Reaction Status Date / Time topiramate (From Topamax) AdvReac Mental Verified 04/04/24 20:10 changes General Stated Complaint: Dizzy/Sync KEVIN: 3 Exam Narrative Exam Narrative: Alert and oriented 54-year-old female in no acute distress, minimal epigastric tenderness without rebound or guarding no CVA tenderness distal pulses intact, no abdominal bruit or pulsatile mass, no pallor, cardiac rate rhythm regular no murmurs or rubs Course Vital Signs Vital signs: Vital Signs Pulse 86 04/04/24 20:05 Respiratory Rate 18 04/04/24 20:05 Blood Pressure 151/102 H 04/04/24 20:05 Pulse Oximetry 100 04/04/24 20:05 Pulse 83 04/04/24 22:00 Respiratory Rate 18 04/04/24 20:12 Respiratory Effort Normal 04/04/24 20:12 Respiratory Depth Normal 04/04/24 20:12 Respiratory Pattern Normal 04/04/24 20:12 Blood Pressure 168/97 H 04/04/24 22:00 Blood Pressure Mean 122 04/04/24 22:00 Blood Pressure Position Supine 04/04/24 20:05 Pulse Oximetry 96 04/04/24 22:00 Oxygen Delivery Method Room Air 04/04/24 20:05 Oxygen Flow Rate 0 04/04/24 20:05 Lab/Test Results Lab/Test Results: Laboratory Tests Range/Units 04/04/24 20:40 WBC (4.4-10.8) 10^3/uL 7.04 RBC (3.93-5.22) 10^6/uL 4.03 Hgb (11.2-15.7) g/dL 12.2 Hct (36.0-46.0) % 36.2 MCV (80-95) fL 90 MCH (27.0-33.0) pg 30.3 MCHC (32.0-36.0) % 33.7 RDW (11.7-14.6) % 12.6 Plt Count (130-400) 10^3/uL 205 MPV (8.0-11.0) fL 9.8 Immature Gran % % 0.1 Neutrophils % % 51.9 Lymphocytes % % 39.9 Monocytes % % 5.5 Eosinophils % % 2.0 Basophils % % 0.6 Nucleated RBC % (0.0-0.3) % 0.0 Absolute Neutrophils (1.2-6.7) 10^3/uL 3.65 Absolute Lymphocytes (1.2-3.4) 10^3/uL 2.81 Absolute Monocytes (0.1-0.8) 10^3/uL 0.39 Absolute Eosinophils (0.0-0.7) 10^3/uL 0.14 Absolute Basophils (0.0-0.2) 10^3/uL 0.04 Sodium (136-145) mmol/L 138 Potassium (3.5-5.1) mmol/L 3.6 Chloride (98-107) mmol/L 103 Carbon Dioxide (21.0-32.0) mmol/L 26.6 Anion Gap (3-11) mmol/L 8.4 BUN (7-18) mg/dL 21 H Creatinine (0.55-1.02) mg/dL 0.9 Est GFR (CKD-EPI 2020) (mL/min/1.73m2) 76.44 Glucose (74-106) mg/dL 107 H Calcium (8.5-10.1) mg/dL 9.2 Magnesium (1.8-2.4) mg/dL 2.0 Total Bilirubin (0.2-1.0) mg/dL 0.19 L AST (15-37) U/L 19 ALT (14-59) U/L 30 Alkaline Phosphatase (46-116) U/L 102 Troponin I (< or =60) ng/L < 50 Total Protein (6.4-8.2) g/dL 6.8 Albumin (3.4-5.0) g/dL 3.6 Lipase (16-77) U/L 57 TSH (0.36-3.74) uIU/Ml 1.24 Medical Decision Making 54-year-old female with history of hypertension and family history of coronary artery disease, heart score 2. reassuring work-up thus far without any acute abnormality on cxr per radiology interpretation and my review. Repeat assessment recommended with primary care physician in outpatient setting in the next 24 to 48 hours, may benefit from a stress test, however patient did have a stress test at the end of December which was documented as patient being low risk for coronary artery disease. I also reviewed her prior CT chest and abdomen and pelvis without any evidence of acute abnormality. I do see documentation of an echocardiogram recommendation for repeat troponin at 2340 and likely discharge home with close outpatient f/u. low concern clinically for cardiac etiology of complaints. wells low risk for PE. Will sign out pending repeat troponin at 2340. Quality:[facility] Health Related Social Needs: No Data to Display PFSH All Active Problems (Updated 04/04/24 @ 23:30 by ESTRADA Zepeda) Atypical chest pain (Acute) Imbalance (Acute) Pulsatile tinnitus, right ear (Acute) Otalgia, right ear (Acute) Abnormal CT of the abdomen (Acute) Abdominal pain (Acute) Rectal bleeding (Acute) Annual physical exam (Acute) Dry eyes (Acute) Arthralgia (Acute) Diverticulosis (Acute) Headache (Acute) Chest pain (Acute) Prediabetes (Acute) Stenosing tenosynovitis (Acute) Plantar fasciitis (Acute) Cervical pain (neck) (Acute) Encounter for annual physical exam (Acute) Disc herniation (Acute) Reflex abnormality (Acute) Quadriceps weakness (Acute) Spondylolisthesis at L5-S1 level (Acute) increase from 10 to 20% in 6 years Vitamin D deficiency (Acute) Palpitations (Acute) Chronic gastritis (Acute) Breast cancer (Chronic) R mastectomy Shortness of breath (Chronic) CXR-normal. lab-normal; PFT-? asthma-decreased FEV1/FVC; no response to albuterol; increased diffusion capacity Peptic reflux disease (Chronic 07/26/13) with dysphagia normal barium swallow Low back pain (Chronic) spondylolisthesis 08/22 Intractable migraine without aura and with status migrainosus (Chronic 12/24/15) Hyperlipidemia (Chronic) Hiatal hernia (Chronic) by barium swallow Essential hypertension (Chronic 07/21/13) Depressive disorder (Chronic) Degeneration of cervical intervertebral disc (Chronic) xray-C5-6 DDD/mild DJD Chronic daily headache (Chronic 12/24/15) Medical History Left ovarian cyst Family history of aortic aneurysm Family history of aneurysm of blood vessel of brain Near syncope (11/05/15) Left groin pain (12/25/14) Surgical History S/P right mastectomy Ligation of fallopian tube Vaginal hysterectomy (04/22/16) Endometrial Biopsy (08/26/11) Endometrial Ablation (~2011) EGD - MAC (08/13/14) DR. MCDANIEL Family History Father Aorta aneurysm Hypertension Hyperlipidemia Cancer of kidney 1/5 of kidney removed Heart disease Alcohol abuse Mother Aorta aneurysm Hypertension Hyperlipidemia Aunt/Uncle Aorta aneurysm Sister Bipolar 1 disorder Son Alcohol abuse Depression Diabetes Son Asthma Daughter Depression Daughter Depression Maternal Grandfather , in his 70s No problems noted. Paternal Grandfather No problems noted. Maternal Grandmother , in her 40s Brain aneurysm Paternal Grandmother , 82 Heart disease Hypertension Stroke Social History Smoking/Tobacco Use Status: Never Second Hand Exposure: Yes Smoking risk assessment performed?: Yes Alcohol Intake: never Drug use: Never Substance use type: does not use Counseling given: No Caregiver/Support person: No Household members: spouse and children Housing: house Communication Needs: None Do you need help understanding health information?: Never current occupation: [employer]. Pets and animals: Yes Pets and animals: dog(s) and other Details: RABBIT Sexually active: Yes Do you think of yourself as: straight/heterosexual Current gender identity: female What is your relationship status?: How often do you talk on the phone with friends or family?: three or more times per week How often do you get together with friends or relatives?: three or more times per week How often do you attend taoist or amish services?: decline to answer Do you belong to any clubs or organized social groups?: yes Panel score (0-1 are the most socially isolated patients): 3 What type of physical activity do you participate in: none Augustina/Congregational: No preference Special augustina needs: No Seatbelt use: always Drive intox or ride w/intox fleet driver: No Do you feel safe at home: Yes Do you feel safe in your relationship?: Yes Victim of physical abuse: No Victim of emotional abuse: No Victim of sexual abuse: No Would you like helpful sources: No Female Reproductive History Menstrual Menopause type: surgical Sign Out Sign Out Data: Sign Out Comment: pending repeat trop, ekg, dispo Last updated by America Shi PA at 04/04/24 23:37
--- NOTE | 2024-04-04 22:50 | DI.RAD_ITS ---
Exam(s) XR CHEST 2V PA LATERAL EXAM: XR CHEST 2V PA LATERAL CLINICAL HISTORY: shortness of breath. TECHNIQUE: 2D digital imaging was performed. COMPARISON: CR,RF RF BARIUM SWALLOW from 07/07/[address] ABDOMEN PELVIS W from 09/27/2023 FINDINGS: 2 views: Heart size is normal. The mediastinum is not widened. Platelike atelectasis in the inferior lingular segment left lung. No confluent infiltrates. No pleu ral effusions. No pulmonary edema. IMPRESSION: Platelike atelectasis in the inferior lingular segment of the left lung. DATA REPOSITORY: RADIATION DOSE DELIVERED:
[2024-04-04] MEDS: Lidocaine 2% Viscous 15 ML CUP (22:56)
[2024-04-04] MEDS: Mylanta Suspension 30 ML CUP (22:56)
--- NOTE | 2024-04-04 23:23 | DI.VRAD_ITS ---
PROCEDURE INFORMATION: Exam: XR Chest Exam date and time: 04/04/2024 10:48 PM Age: 54 years old Clinical indication: Shortness of breath TECHNIQUE: Imaging protocol: Radiologic exam of the chest. Views: 2 views. COMPARISON: CT CHEST PE CTA 12/11/2023 12:48 PM FINDINGS: Lungs: Minimal atelectatic changes present at the left lung base. There is no evidence of focal pulmonary consolidation. The pulmonary vasculature is normal. Pleural spaces: There is no evidence of pneumothorax. There are no pleural effusions present. Heart/Mediastinum: The cardiac silhouette is within normal limits. The mediastinum is normal. Bones/joints: The spine, sternum, ribs, and pectoral girdles show no evidence of acute abnormality Soft tissues: There are no soft tissue masses or calcifications. IMPRESSION: 1. Minimal atelectatic changes present at the left lung base. 2. Otherwise, no definitive explanation for patient's current clinical presentation elicited on this study. Dictated and Authenticated by: Jean-Paul Veras MD. Ordering:HOLLI Cross MD
--- NOTE | 2024-04-04 23:28 | W.EDPROG ---
Date of service: 04/04/24 Time of Service: 23:28 Medical Decision Making This patient was signed out to me. Please see previous notes for H&P and initial eval. In brief, 54yo F presenting with chest pain. Positive family hx of NH. EKG with no changes from prior, initial troponin negative. HEART score 3 (age, risk factors), low risk. Signed out pending repeat troponin; if negative plan for discharge home. Contingent discharge instructions were written. Patient now complaining of back pain. Does not appear to be in distress on exam, equal pulses- low suspicion for aortic dissection however with triad of chest pain, back pain, and hypertension must consider. Will evaluate with CTA. Repeat troponin negative. Repeat EKG unchanged, SR, appropiate intervals, no ST segment or T wave abnormalitites to suggest occlusive NH. CTA independently reviewed; no large dissection on my view, agree with radiology read below. On reassessment she is non-toxic appearing with reassuring vital signs; does remain somewhat hyertensive. Instructed to discuss this with her PCP in the morning. Discharged home; discharge instructions and return precautions were reviewed with patient who verbalized understanding. All questions were answered and she is in full agreement with the plan. Imaging Data Radiologic Study: Imaging: CT Scan Radiologist's impression: IMPRESSION: 1. 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 The celiac artery is otherwise widely patent without evidence of occlusive or aneurysmal disease. Superior mesenteric artery is widely patent without evidence of occlusive or aneurysmal disease.The inferior mesenteric artery is widely patent without evidence of occlusive or aneurysmal disease. 2. There are bilateral spondylolytic changes L5-S1 with grade 1 anterolisthesis of L5 anteriorly on S1. 3. No other evidence of aneurysmal occlusive or vasculitic changes present within the chest abdomen or pelvis. Lab Data Lab results reviewed: Yes I reviewed the patient's lab results. Labs: Laboratory Tests Range/Units 04/04/24 04/04/24 20:40 23:45 WBC (4.4-10.8) 10^3/uL 7.04 RBC (3.93-5.22) 10^6/uL 4.03 Hgb (11.2-15.7) g/dL 12.2 Hct (36.0-46.0) % 36.2 MCV (80-95) fL 90 MCH (27.0-33.0) pg 30.3 MCHC (32.0-36.0) % 33.7 RDW (11.7-14.6) % 12.6 Plt Count (130-400) 10^3/uL 205 MPV (8.0-11.0) fL 9.8 Immature Gran % % 0.1 Neutrophils % % 51.9 Lymphocytes % % 39.9 Monocytes % % 5.5 Eosinophils % % 2.0 Basophils % % 0.6 Nucleated RBC % (0.0-0.3) % 0.0 Absolute Neutrophils (1.2-6.7) 10^3/uL 3.65 Absolute Lymphocytes (1.2-3.4) 10^3/uL 2.81 Absolute Monocytes (0.1-0.8) 10^3/uL 0.39 Absolute Eosinophils (0.0-0.7) 10^3/uL 0.14 Absolute Basophils (0.0-0.2) 10^3/uL 0.04 Sodium (136-145) mmol/L 138 Potassium (3.5-5.1) mmol/L 3.6 Chloride (98-107) mmol/L 103 Carbon Dioxide (21.0-32.0) mmol/L 26.6 Anion Gap (3-11) mmol/L 8.4 BUN (7-18) mg/dL 21 H Creatinine (0.55-1.02) mg/dL 0.9 Est GFR (CKD-EPI 2020) (mL/min/1.73m2) 76.44 Glucose (74-106) mg/dL 107 H Calcium (8.5-10.1) mg/dL 9.2 Magnesium (1.8-2.4) mg/dL 2.0 Total Bilirubin (0.2-1.0) mg/dL 0.19 L AST (15-37) U/L 19 ALT (14-59) U/L 30 Alkaline Phosphatase (46-116) U/L 102 Troponin I (< or =60) ng/L < 50 < 50 Total Protein (6.4-8.2) g/dL 6.8 Albumin (3.4-5.0) g/dL 3.6 Lipase (16-77) U/L 57 TSH (0.36-3.74) uIU/Ml 1.24 Quality:[facility] Health Related Social Needs: No Data to Display Sign Out Sign Out Data: Sign Out Comment: pending repeat trop, ekg, dispo Last updated by America Shi PA at 04/04/24 23:37 Discharge Plan Disposition Patient Disposition: Home Condition: Stable Discharge Details Clinical Impression: Atypical chest pain Primary Care Provider: Katheryn Velasquez ED Provider: Neena Gray Home Meds and New Rx's Prescriptions: Continued 5-hydroxytryptophan(5HTP)-B6-C 50-4-60 mg tablet,delayed release (DR/EC) PO DAILY fluticasone propionate [Allergy Relief (fluticasone)] 50 mcg/actuation spray,suspension 1 spray intranasal BID Rx Instructions: administer into each nostril famotidine [Pepcid] 20 mg tablet 20 mg PO DAILY omeprazole 40 mg capsule,delayed release(DR/EC) 40 mg PO DAILY Qty: 90 3RF potassium chloride 20 mEq tablet extended release 20 meq PO DAILY Qty: 90 5RF lisinopril-hydrochlorothiazide 10-12.5 mg tablet 1 tab PO DAILY Qty: 90 4RF acetaminophen [Tylenol Extra Strength] 500 mg tablet 1,000 mg PO BID PRN (Reason: Pain) loratadine 10 mg Capsule 10 mg PO DAILY vitamin B complex Capsule 1 cap PO DAILY coenzyme Q10 100 mg Tablet,Chewable 100 mg PO DAILY kn-bv-aslw-FA-Ca carb-vit K 18 mg iron-400 mcg-500 mg Tablet 1 tab PO DAILY Discharge Instructions Instructions: Chest pain Additional Instructions: please follow-up with Dr Velasquez tomorrow continue on omeprazole and pepcid daily have blood pressure rechecked this week your chest xray shows slight atelectasis, but improved from prior return earlier with new or worsening complaints
--- NOTE | 2024-04-04 23:30 | DI.CT_ITS ---
Exam(s) CT THORAX ABD/PEL CTA EXAM: CT THORAX ABD/PEL CTA CLINICAL HISTORY: chest pain back pain, HTN, eval dissection. TECHNIQUE: Imaging Protocol: Axial computed tomography images with coronal and sagittal reformatted images were created and reviewed CONTRAST MATERIAL: Intravenous: Omnipaque 350 Contrast volume:100 ml Oral: None COMPARISON: CT CT CHEST PE CTA from 12/11/2023 FINDINGS: CHEST: AORTA: The ascending thoracic aorta exhibits normal diameter as does the thoracic aortic arch and vincenzo cending thoracic aorta. There is no evidence of dissection or pericardial effusion. There is no evidence of abdominal aortic aneurysm nor dissection. No significant atherosclerotic dis ease evident in the abdominal aorta, aortic bifurcation, and the common and external iliac arteries a s well as common femoral arteries are nicely patent without atherosclerotic disease nor dissection no r aneurysmal dilatation. Both common iliac arteries are also patent. The celiac and superior mesenteric arteries are patent.. Inferior mesenteric artery is patent. Ther e is no significant stenosis at the origin of the renal arteries nor stenosis more distally in these vessels. Kidneys exhibit normal size. There are no ischemic appearing bowel loops. LUNGS: No infiltrates nor pleural effusions. No significant nodules.. MEDIASTINUM: There is no hilar nor mediastinal adenopathy. CARDIAC: Heart size is normal. There is no pericardial effusion. ABDOMEN: There is no ascites. LIVER: There are no focal hepatic lesions nor dilatation of intrahepatic ducts. GALLBLADDER/BILIARY: No obvious gallbladder pathology. CBD is not dilated. PANCREAS: No evidence of pancreatic mass nor dilatation of the pancreatic duct. SPLEEN: Spleen is not enlarged. There are no intrasplenic lesions. Splenic and portal veins are brumfield nt. ADRENALS: There are no significant adrenal masses. KIDNEYS: No cysts evident. No calculi nor hydronephrosis. No solid renal masses. ABDOMINAL AORTA: The abdominal aorta is not enlarged. LYMPH NODES: There is no retroperitoneal nor para-aortic adenopathy. No obvious mesenteric masses. ABDOMINAL WALL: No evidence of significant anterior abdominal wall hernia. GI: There is no evidence of bowel obstruction, free air, nor abscess. PELVIS: LYMPH NODES: There is no intrapelvic nor inguinal adenopathy. GI: No evidence of appendicitis.There is sigmoid diverticulosis without evidence of obvious acute div erticulitis. URINARY BLADDER: No calculi nor masses evident REPRODUCTIVE: Uterus is surgically absent. No abnormal adnexal masses nor free fluid in the pelvis. OSSEOUS: No significant osseous lesions. No fractures. There are bilateral pars defects at L5 level with anterolisthesis of L5 upon S1. Also disc space narrowing at this level. IMPRESSION: 1. No evidence of aortic dissection nor pericardial effusion, as per request. No evidence of thoraci c aortic aneurysm nor aneurysmal dilatation of the abdominal aorta and aortoiliac segments. 2. No significant acute findings in the chest, abdomen, and pelvis 3. Anterolisthesis of L5 upon S1 related to bilateral L5 pars defects. RADIATION DOSE DELIVERED: 352.26mGy.cm Total DLP DATA REPOSITORY: All CT scans at this facility are submitted to the National Radiology Data Registry (NRDR) Dose Index Registry (DIR) with the [employer] (A[employer]). RADIATION OPTIMIZATION: All CT scans at this facility use at least one of these dose optimization te chniques: automated exposure control; mA and/or kV adjustment per patient size (includes targeted exa ms where dose is matched to clinical indication); or iterative reconstruction.
--- NOTE | 2024-04-04 23:30 | RT.EKG_ITS ---
APPROVED REPORT Exam: Resting ECG Reason for Exam: chest pain Patient Location: E HR:86 bpm ECG Measurements Heart Rate 86 AXIS NM 167 P 31 QRSd 91 QRS 70 QT 369 T 35 QTc 441 Conclusion Sinus rhythm... V-rate 60- [address] segment or T wave abnormalities to suggest occlusive [place]
[2024-04-04] MEDS: Acetaminophen 500 MG TAB 1000 MG PO (23:49)
[2024-04-04] MEDS: Normal Saline - Diluent 50 ML VIAL IJ (23:55)
[2024-04-04] MEDS: Omnipaque 350 MG/ML 100 ML BTL IJ (23:55)
[2024-04-04] MEDS: Normal Saline Flush 10 ML SYR IVP (23:56)
[2024-04-05 00:16] LABS: Troponin I < 50 ng/L (< or =60)
[2024-04-05 00:20] VITALS: PULSE 91; RESP 10; O2SAT 97
[2024-04-05 00:30] VITALS: PULSE 92; RESP 15; O2SAT 99
[2024-04-05 00:40] VITALS: PULSE 85; RESP 12; O2SAT 95
[2024-04-05 00:45] VITALS: BP 175/94; PULSE 83; PULSE 90; RESP 16; O2SAT 97
[2024-04-05 00:50] VITALS: PULSE 98; RESP 23; O2SAT 100
--- NOTE | 2024-04-05 00:58 | DI.VRAD_ITS ---
PROCEDURE INFORMATION: Exam: CTA Chest With Contrast CTA Abdomen and Pelvis With Contrast Exam date and time: 04/04/2024 11:48 PM Age: 54 years old Clinical indication: Left-sided; Other: Upper L back pain, HTN; Prior surgery; Surgery date: 6+ months; Surgery type: Hysterectomy, mastectomy; Patient HX: Chest pain \T\ back pain, HTN, eval dissection TECHNIQUE: Imaging protocol: Computed tomographic angiography of the chest with contrast. Exam focused on the arteries. Computed tomographic angiography of the abdomen and pelvis with contrast. Exam focused on the arteries. 3D rendering (Not supervised by radiologist): MIP and/or 3D reconstructed images were created by the technologist. Radiation optimization: All CT scans at this facility use at least one of these dose optimization techniques: automated exposure control; mA and/or kV adjustment per patient size (includes targeted exams where dose is matched to clinical indication); or iterative reconstruction. Contrast material: OMNIPAQUE 350; Contrast volume: 100 ml; Contrast route: INTRAVENOUS (IV); COMPARISON: CT CHEST PE CTA 12/11/2023 12:48 PM FINDINGS: VASCULATURE: Great vessels off aortic arch: The great vessels appear unremarkable. Pulmonary arteries: The pulmonary arteries are normal in caliber. No evidence of pulmonary emboli. Aorta: The ascending, transverse and descending thoracic aorta appear normal without evidence of dissection, aneurysmal dilatation, pseudoaneurysm or aortic contrast leakage. The aorta and great vessels appear normal. The abdominal aorta is widely patent without evidence of significant occlusive or aneurysmal disease. The aorta is normal without evidence of significant atherosclerosis or aneurysmal disease. The peripheral arterial vascular system visualized is unremarkable. The portal venous system visualized is unremarkable. The venous system visualized is unremarkable. 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 The celiac artery is otherwise widely patent without evidence of occlusive or aneurysmal disease. Renal arteries: Single renal artery supplies the right kidney, is widely patent, without evidence of significant occlusive or aneurysmal disease. Single renal artery supplies the left kidney, is widely patent, without evidence of significant occlusive or aneurysmal disease. Right iliac arteries: The right common iliac artery, right internal iliac artery and right external iliac arteries are widely patent without evidence of significant occlusive or aneurysmal disease. Right femoral/popliteal arteries: The right common femoral artery is widely patent without evidence of significant occlusive or aneurysmal disease. The proximal right deep and superficial femoral arteries are widely patent without evidence of significant occlusive or aneurysmal disease. Left iliac arteries: The left common iliac artery, left internal iliac artery and left external iliac arteries are widely patent without evidence of significant occlusive or aneurysmal disease. Left femoral/popliteal arteries: The left common femoral artery is widely patent without evidence of significant occlusive or aneurysmal disease. The proximal left deep and superficial femoral arteries are widely patent without evidence of significant occlusive or aneurysmal disease. CHEST: Lungs: There is no evidence of focal pulmonary consolidation. No evidence of pulmonary parenchymal inflammatory changes. There is no evidence of pulmonary masses. The lungs are normal. There is no evidence of focal pulmonary consolidation. Pleural spaces: There is no evidence of pneumothorax. There are no pleural effusions present. Heart: The cardiac structures are normal. Coronary arteries: The coronary arteries appear normal. ABDOMEN AND PELVIS: Liver: There are no focal liver lesions present. There is no evidence of intrahepatic or extrahepatic biliary ductal dilation. Gallbladder and biliary ducts: The gallbladder is normal. There is no cholelitiasis, wall thickening or pericholecystic fluid to suggest cholecystitis. Pancreas: The pancreas is normal. Spleen: The spleen is normal. Adrenal glands: The adrenal glands are normal. Kidneys and ureters: The kidneys are normal. Stomach and bowel: Moderate diverticulosis is present in the sigmoid and descending colon. There is no evidence of intestinal obstruction. No diverticulitis is present. Appendix: A normal appendix is identified. There is no evidence of distention or periappendiceal inflammation to suggest appendicitis. Intraperitoneal space: There is no free intraperitoneal air. There is no evidence of free intraperitoneal or pelvic fluid. There are no soft tissue masses or fluid collections. Urinary bladder: The bladder is normal. Reproductive: There has been a hysterectomy. No adnexal cysts or masses are identified. Lymph nodes: There is no evidence of lymphadenopathy. Bones/joints: The spine, sternum, ribs, and pectoral girdles show no evidence of acute abnormality. There are bilateral spondylolytic changes L5-S1 with grade 1 anterolisthesis of L5 anteriorly on S1. The skeletal structures show no evidence of fracture or other acute processes. Soft tissues: There are no soft tissue masses or fluid collections. There has been a right mastectomy. The extra-abdominal soft tissues are normal. Other findings: The mediastinal structures are normal. IMPRESSION: 1. 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 The celiac artery is otherwise widely patent without evidence of occlusive or aneurysmal disease. Superior mesenteric artery is widely patent without evidence of occlusive or aneurysmal disease.The inferior mesenteric artery is widely patent without evidence of occlusive or aneurysmal disease. 2. There are bilateral spondylolytic changes L5-S1 with grade 1 anterolisthesis of L5 anteriorly on S1. 3. No other evidence of aneurysmal occlusive or vasculitic changes present within the chest abdomen or pelvis. Dictated and Authenticated by: Jean-Paul Veras MD. Ordering:RODRICK Chaudhary MD
== END 2024-04-05 01:21 | disposition home or self-care (01) ==
PROVIDERS: Physician Assistant; Emergency Provider Student in an Organized Health Care Education/Training Program; PCP Family Medicine
DX: R07.89 Other chest pain (principal); R10.13 Epigastric pain; I10 Essential (primary) hypertension; K21.9 Gastro-esophageal reflux disease without esophagitis; Z85.3 Personal history of malignant neoplasm of breast; Z90.11 Acquired absence of right breast and nipple; Z90.710 Acquired absence of both cervix and uterus; Z82.49 Family history of ischemic heart disease and other diseases of the circulatory system
CPT/HCPCS: 00123; 71275; 80053; 83690; 93005; 96374; 99285; 71046; 74174; 83735; 84443; 84484; 85025; 93010; 99284; J3490

== ENCOUNTER 2024-07-21 15:43 | Outpatient (CLI) | payer BC, SELFPAY ==
--- NOTE | 2024-07-21 15:30 | RT.EKG_ITS ---
APPROVED REPORT Exam: Resting ECG Reason for Exam: Weakness Patient Location: O HR:82 bpm ECG Measurements Heart Rate 82 AXIS OH 173 P 40 QRSd 95 QRS 70 QT 371 T 45 QTc 434 Conclusion Sinus rhythm...normal P axis, V-rate 50- 99 Normal Electrocardiogram
== END 2024-07-21 15:44 | disposition home or self-care (01) ==
PROVIDERS: PCP Family Medicine; Visit Provider Physician Assistant
DX: R53.1 Weakness (principal); R55 Syncope and collapse
CPT/HCPCS: 93010

== ENCOUNTER 2024-07-21 22:11 | Outpatient (REF) | payer BC, SELFPAY ==
[2024-07-21 22:00] LABS: Abs Immature Grans 0.02 10^3/uL (0.0-0.06); Absolute Basophil Count 0.03 10^3/uL (0.0-0.2); Absolute Eosinophil Count 0.09 10^3/uL (0.0-0.7); Absolute Lymphocyte Count 1.77 10^3/uL (1.2-3.4); Absolute Monocyte Count 0.49 10^3/uL (0.1-0.8); Absolute Neutrophil Count 6.19 10^3/uL (1.2-6.7); Basophils % 0.3 %; HCT 40.8 % (36.0-46.0); HGB 13.5 g/dL (11.2-15.7); Immature Grans % 0.2 %; Lymphocytes % 20.6 %; MCH 30.7 pg (27.0-33.0); MCHC 33.1 % (32.0-36.0); MCV 93 fL (80-95); MPV 10.8 fL (8.0-11.0); Monocytes % 5.7 %; Neutrophils % 72.2 %; Platelet Count 250 10^3/uL (130-400); RDW 12.8 % (11.7-14.6); RDW-SD 43.8 fL; WBC 8.59 10^3/uL (4.4-10.8)
[2024-07-21 22:13] LABS: ALT 30 U/L (14-59); AST 21 U/L (15-37); Albumin 4.1 g/dL (3.4-5.0); Alkaline Phosphatase 130 U/L (46-116); Anion Gap 7.7 mmol/L (3-11); BUN 16 mg/dL (7-18); Bilirubin, Total 0.16 mg/dL (0.2-1.0); CO2 29.3 mmol/L (21.0-32.0); CREATININE 0.8 mg/dL (0.55-1.02); Calcium 9.2 mg/dL (8.5-10.1); Chloride 103 mmol/L (98-107); Estimated GFR 88.05 (mL/min/1.73m2); Glucose 109 mg/dL (74-106); Magnesium 2.2 mg/dL (1.8-2.4); Potassium 3.7 mmol/L (3.5-5.1); Sodium 140 mmol/L (136-145); Total Protein 7.3 g/dL (6.4-8.2)
== END 2024-07-21 22:12 | disposition home or self-care (01) ==
LOC: LBN 22:11
PROVIDERS: PCP Family Medicine; Visit Provider Physician Assistant
DX: R55 Syncope and collapse (principal)
CPT/HCPCS: 80053; 83735; 85025

== ENCOUNTER 2024-07-26 03:31 | Outpatient (CLI) | payer BC, SELFPAY ==
--- NOTE | 2024-07-26 07:45 | DI.RAD_ITS ---
Exam(s) XR CERVICAL SPINE COMP 4-5V EXAM: XR CERVICAL SPINE COMP 4-5V CLINICAL HISTORY: neck pain and foot numbness,m54.2. TECHNIQUE: 2D digital imaging was performed. COMPARISON: CR,RF RF BARIUM SWALLOW from 07/07/2023 FINDINGS: Five views And there is mild reversal normal curvature of the cervical spine again noted. There is no evidence of fracture, listhesis, nor offset of the spinal laminar line. There is mild disc space narrowing an d anterior osseous lipping at C5-6 level which is unchanged. Also some calcification in the anterior longitudinal ligament noted at C4-5 level and slight anterior osseous lipping at C4-5 level also not ed, unchanged and not associated with disc space narrowing at this level. The oblique views reveal no significant Luschka joint osteophytes. There is minimal if any significa nt facet arthropathy. There are no cervical ribs. No osseous lesions. IMPRESSION: Findings as above but without significant change compared to a lateral image obtained on 07/07/2023. DATA REPOSITORY: RADIATION DOSE DELIVERED:
--- NOTE | 2024-07-26 07:45 | DI.RAD_ITS ---
Exam(s) XR LUMBAR SPINE COMP W FLEX/EX EXAM: XR LUMBAR SPINE COMP W FLEX/EX CLINICAL HISTORY: spondylolisthesis L5 S 1 and LBP,foot numbness,m54.5,m43.17. TECHNIQUE: 2D digital imaging was performed. COMPARISON: CR LUMBAR SPINE COMPLETE from 08/10/2013 MR MRI - LUMBAR SPINE WO CONTRAST from 09/06/2013 FINDINGS: Five views. No evidence of fracture. However, there is advanced disc space narrowing at L5-S1 level which has significantly progressed when compared MRI images of 2014 none and there is an element of anterior listhesis of L5 upon S1 which is related to pars defects at L5 level. Pars defects were als o evident on images of 2014. Other disc spaces exhibit normal height and no slippage. There is no scoliosis. Sacroiliac joints a ppear unremarkable. Bone density normal. No osseous lesions. There is minimal degenerative change in the facet joints. IMPRESSION: Anterolisthesis of L5 upon S1 as well as advanced disc space narrowing at this level. The listhesis at this level is related to bilateral L5 pars interarticularis defects. DATA REPOSITORY: RADIATION DOSE DELIVERED:
== END 2024-07-26 03:51 ==
LOC: DI 03:31
PROVIDERS: PCP Family Medicine; Visit Provider Family Medicine
DX: M43.17 Spondylolisthesis, lumbosacral region (principal)
CPT/HCPCS: 72114; 72050

== ENCOUNTER 2024-08-16 03:29 | Outpatient (CLI) | payer BC, SELFPAY ==
--- NOTE | 2024-08-16 06:30 | DI.MRI_ITS ---
Exam(s) MR LUMBAR SPINE WO EXAM: MR LUMBAR SPINE WO CLINICAL HISTORY: worsening Low back and b/l leg pain despite conservative rx,quadriceps weak. TECHNIQUE: Multiplanar multisequence MRI of the Lumbar spine was performed. COMPARISON: MR MR LUMBAR SPINE WO from 03/06/2020 CR XR LUMBAR SPINE COMP W FLEX/EX from 07/26/2024 CR XR LUMBAR SPINE FLEX/EXT ONLY from 07/27/2024 FINDINGS: Bones: The last intervertebral disc space is designated the L5/S1 level for the numbering purpose of this examination. The vertebral body heights are well maintained. Endplate degenerative signal aliza nges are noted particularly at the L1-L2 and L5-S1 levels. There is L5 spondylolysis and grade 1 spo ndylolisthesis of L5 on S1. This is stable. Cord: The conus tip ends at the L1 level. It is of normal size and signal intensity. There is a per ineural root sleeve cyst on the left at the S2 segment. T12-L1: No disc herniations or bulges are present. No central spinal canal or neural foraminal stenos is. L1-2: No disc herniations or bulges are present. No central spinal canal or neural foraminal stenosis . L2-3: No disc herniations or bulges are present. No central spinal canal or neural foraminal stenosis . L3-4: No disc herniations or bulges are present. No central spinal canal or neural foraminal stenosis . L4-5: No disc herniations or bulges are present. No central spinal canal or neural foraminal stenosis . L5-S1: There is a mild diffuse disc bulge. This, in conjunction with the spondylolisthesis contribut es to cause moderate bilateral neural foraminal stenosis. No significant central spinal canal stenos is is seen. Soft tissues: The visualized SI joints and sacrum are well maintained. The paraspinal soft tissues ar e unremarkable. IMPRESSION: L5 spondylolysis and grade 1 spondylolisthesis. This in conjunction with a diffuse disc bulge causes moderate bilateral neural foraminal stenosis. DATA REPOSITORY:
== END 2024-08-16 03:49 ==
LOC: DI 03:29
PROVIDERS: PCP Family Medicine; Visit Provider Family Medicine
DX: M43.17 Spondylolisthesis, lumbosacral region (principal); M62.81 Muscle weakness (generalized)
CPT/HCPCS: 72148

== ENCOUNTER 2024-10-13 22:22 | Emergency (ER) | payer BC, SELFPAY ==
[2024-10-13 22:28] VITALS: BP 190/98; PULSE 92; RESP 18; TEMP 36.6; O2SAT 100
--- NOTE | 2024-10-13 23:00 | RT.EKG_ITS ---
APPROVED REPORT Exam: Resting ECG Reason for Exam: presyncope Patient Location: E HR:84 bpm ECG Measurements Heart Rate 84 AXIS NM 173 P 35 QRSd 92 QRS 82 QT 358 T 42 QTc 424 Conclusion Sinus rhythm...normal P axis, V-rate 60- [address] segment or T wave abnormalities to suggest occlusive [place]
--- NOTE | 2024-10-13 23:08 | ED.GENADUL_ITS ---
Discharge Plan Disposition Patient Disposition: Home Condition: Good Discharge Details Clinical Impression: Near syncope Primary Care Provider: Katheryn Velasquez ED Provider: Neena Gray Home Meds and New Rx's Prescriptions: Continued 5-hydroxytryptophan(5HTP)-B6-C 50-4-60 mg tablet,delayed release (DR/EC) 1 tab PO DAILY fluticasone propionate [Allergy Relief (fluticasone)] 50 mcg/actuation spra y,suspension 1 spray intranasal BID Rx Instructions: administer into each nostril famotidine [Pepcid] 20 mg tablet 20 mg PO DAILY PRN potassium chloride 20 mEq tablet extended release 20 meq PO DAILY Qty: 90 5RF lisinopril-hydrochlorothiazide 20-12.5 mg tablet 1 tab PO DAILY Qty: 90 4RF omeprazole 40 mg capsule,delayed release(DR/EC) 40 mg PO DAILY Qty: 90 3RF acetaminophen [Tylenol Extra Strength] 500 mg tablet 1,000 mg PO BID PRN (Reason: Pain) loratadine 10 mg Capsule 10 mg PO DAILY coenzyme Q10 100 mg Tablet,Chewable 100 mg PO DAILY be-hj-evsp-FA-Ca carb-vit K 18 mg iron-400 mcg-500 mg Tablet 1 tab PO DAILY Discharge Instructions Instructions: Near Fainting (DC) Additional Instructions: Call your primary care doctor to schedule an appointment for within the next 72 hours to followup on your visit here. Return to the emergency department for new or worsening symptoms including chest pain, difficulty breathing, losing consciousness, numbness or weakness of one part of your body, if your symptoms return, or if you have any other concerns. Referrals: Katheryn Velasquez MD, [place] [Primary Care Provider] - [facility] General Mode of arrival: ambulatory . Date/Time Provider Initiated Documentation: 10/13/24 22:23 . Limitations to Documentation: no limitations . Information obtained by: patient and family . HPI Narrative: 54yo F with hx HTN, GERD, presenting for near-syncope. Today while getting up to the bathroom felt lightheaded and nauseated. Did not pass out or vomit. No vertigo. Went back to bed, then felt the need to have a bowel movement and so got up again to the bathroom and did pass stool. Soft/brown/normal/non-bloody. She again felt lightheaded and nauseated. After this event she presented to the ED. No chest pain or shortness of breath at any point. No pain anywhere. Has felt generally unwell today, fatigued. Normal PO intake. Has had similar episodes in the past which have been 'vagal' in nature. She also attributes some of the episode to anxiety and today tried breathing into a paper bag which did not help. The episode today was in all ways similar to her prior episodes. Feels back to normal now. Otherwise in her usual state of health with no fevers, rash, vomiting, abdominal pain, dysuria, numbness, focal weakness, or other concerns. Related Data Home Medications ?Medication ?Instructions ?Recorded ?Confirmed acetaminophen 500 mg tablet 1,000 mg PO BID PRN Pain 04/06/19 10/14/24 (Tylenol Extra Strength) loratadine 10 mg capsule 10 mg PO DAILY 06/25/22 10/14/24 coenzyme Q10 100 mg chewable tablet 100 mg PO DAILY 02/16/23 10/14/24 erbxuika-olj-amjn-FA-Ca carb-vit K 1 tab PO DAILY 02/16/23 10/14/24 18 mg iron-400 mcg-500 mg tablet potassium chloride 20 mEq 20 meq PO DAILY #90 tabs 12/20/23 10/14/24 tablet,extended release 5-hydroxytryptophan(5HTP) 50 mg-B6 1 tab PO DAILY 02/03/24 10/14/24 4 mg-C 60 mg tablet,delayed release famotidine 20 mg tablet (Pepcid) 20 mg PO DAILY PRN 02/03/24 10/14/24 fluticasone propionate 50 1 spray intranasal BID 02/03/24 10/14/24 mcg/actuation nasal spray,suspension (Allergy Relief (fluticasone)) lisinopril 20 1 tab PO DAILY #90 tabs 04/05/24 10/14/24 mg-hydrochlorothiazide 12.5 mg tablet omeprazole 40 mg capsule,delayed 40 mg PO DAILY #90 caps 06/19/24 10/14/24 release Previous Rx's ?Medication ?Instructions ?Recorded potassium chloride 20 mEq 20 meq PO DAILY #90 tabs 12/20/23 tablet,extended release lisinopril 20 1 tab PO DAILY #90 tabs 04/05/24 mg-hydrochlorothiazide 12.5 mg tablet omeprazole 40 mg capsule,delayed 40 mg PO DAILY #90 caps 06/19/24 release Allergies Allergy/AdvReac Type Severity Reaction Status Date / Time topiramate (From Topamax) AdvReac Mental Verified 09/05/24 10:29 changes General Stated Complaint: Dizzy/Sync KEVIN: 3 Review of Systems Narrative: see HPI Exam Narrative Exam Narrative: General: Alert, well appearing, well nourished, in no acute distress. Head: Normocephalic, atraumatic Neck: Trachea midline, ?Neck supple. ENT: ?MMM.? No oropharygeal lesions or exudate. Cardiac: ?RRR, no murmurs appreciated Resp: No respiratory distress. CTAB. Abd: ?Soft, non-distended, nontender : ?No suprapubic tenderness. Extremities: ?No deformities.? No peripheral edema. Neuro: ? GCS 15.? PERRL.? EOMI.? Fluent speech, no dysarthria. Motor- 5/5 strength bilateral upper and lower extremities extensors, ankle dorsiflexors and planter flexors. Sensation- ?Intact to light touch and symmetric multiple dermatomes including upper and lower extremities Coordination- No dysmetria on finger to nose Gait/station: ?Normal stance.? No truncal ataxia. Steady gait with equal normal steps CRANIAL NERVES: II: Pupils equal and reactive, III, IV, : EOM intact, no gaze preference or deviation, no nystagmus. V: normal sensation in V1, V2, and V3 segments bilaterally VII: no asymmetry, no nasolabial fold flattening VIII: normal hearing to speech IX, X: normal palatal elevation, no uvular deviation XI: 5/5 head turn and 5/5 shoulder shrug bilaterally XII: midline tongue protrusion Course Vital Signs Vital signs: Vital Signs Temperature 36.6 C 10/13/24 22:28 Pulse 92 H 10/13/24 22:28 Respiratory Rate 18 10/13/24 22:28 Blood Pressure 190/98 H 10/13/24 22:28 Pulse Oximetry 100 10/13/24 22:28 Temperature 36.6 C 10/13/24 22:28 Temperature Source Oral 10/13/24 22:28 Pulse 92 H 10/13/24 22:28 Respiratory Rate 18 10/13/24 22:28 Respiratory Effort Normal 10/13/24 22:34 Blood Pressure 190/98 H 10/13/24 22:28 Blood Pressure Position Supine 10/13/24 22:28 Pulse Oximetry 100 10/13/24 22:28 Oxygen Delivery Method Room Air 10/13/24 22:28 Oxygen Flow Rate 0 10/13/24 22:28 Medical Decision Making 54yo F with hx HTN, GERD, presenting for near-syncope. Similar episodes in the past attributed to vagal reactions and/or anxiety; episode today was in all ways similar to her prior episodes and she feels back to baseline now. Hypertensive on arrival, vital signs otherwise reassuring. Well appearing with normal physical and neurologic exam. Given setting of voiding/defecating, most likely vagal in nature. History and exam not concerning for acute neurologic event or aortic dissection; would not get CT imaging. Unlikely cardiogenic- will get EKG and labs to further evaluate. -EKG NSR, appropriate intervals, no ST segment or T wave abnormalities to suggest occlusive CT -Orthostatic vitals signs without orthostasis and BP had improved to more reasonable 150's/90's without intervention -Labs reviewed as below, CBC reassuring with no leukocytosis or anemia, CMP with normal electrolytes and glucose and no actionable abnormalities, Mg normal, HS troponin normal x 2, dimer negative (would not further pursue pulmonary embolism with CT scan). Respiratory viral swabs negative. On reassessment patient remains well appearing with reassuring vital signs. Reports that she continues to feel well and would like to go home which with her reassuring workup is very reasonable. Discharged home to followup with PCP; denise jarquin instructions and return precautions were reviewed with patient who verbalized understanding. All questions were answered and she is in full agreement with the plan. Lab Data Lab results reviewed: Yes I reviewed the patient's lab results. Labs: Laboratory Tests Range/Units 10/13/24 10/14/24 22:44 00:00 WBC (4.4-10.8) 10^3/uL 7.66 RBC (3.93-5.22) 10^6/uL 4.39 Hgb (11.2-15.7) g/dL 13.3 Hct (36.0-46.0) % 39.7 MCV (80-95) fL 90 MCH (27.0-33.0) pg 30.3 MCHC (32.0-36.0) % 33.5 RDW (11.7-14.6) % 12.8 Plt Count (130-400) 10^3/uL 234 MPV (8.0-11.0) fL 10.2 Immature Gran % % 0.4 Neutrophils % % 52.4 Lymphocytes % % 39.2 Monocytes % % 5.5 Eosinophils % % 2.0 Basophils % % 0.5 Nucleated RBC % (0.0-0.3) % 0.0 Absolute Neutrophils (1.2-6.7) 10^3/uL 4.02 Absolute Lymphocytes (1.2-3.4) 10^3/uL 3.00 Absolute Monocytes (0.1-0.8) 10^3/uL 0.42 Absolute Eosinophils (0.0-0.7) 10^3/uL 0.15 Absolute Basophils (0.0-0.2) 10^3/uL 0.04 D-Dimer (<500) ng/mlFEU 496 Sodium (136-145) mmol/L 141 Potassium (3.5-5.1) mmol/L 3.5 Chloride (98-107) mmol/L 104 Carbon Dioxide (21.0-32.0) mmol/L 27.8 Anion Gap (3-11) mmol/L 9.2 BUN (7-18) mg/dL 20 H Creatinine (0.55-1.02) mg/dL 0.9 Est GFR (CKD-EPI 2020) (mL/min/1.73m2) 76.44 Glucose (74-106) mg/dL 156 H Calcium (8.5-10.1) mg/dL 9.7 Magnesium (1.8-2.4) mg/dL 2.0 Total Bilirubin (0.2-1.0) mg/dL 0.3 AST (15-37) U/L 18 ALT (14-59) U/L 34 Alkaline Phosphatase (46-116) U/L 121 H Troponin I (<or=51) ng/L 14 9 Total Protein (6.4-8.2) g/dL 7.4 Albumin (3.4-5.0) g/dL 4.0 COVID-19 Source Nasopharynx SARS-CoV-2 (PCR) (Negative) Negative Influenza Type A (PCR) (Negative) Negative Influenza Type B (PCR) (Negative) Negative RSV (PCR) (Negative) Negative Quality:SDOH Health Related Social Needs: No Data to Display PFSH All Active Problems (Updated 10/14/24 @ 00:29 by Neena Gray MD) Near syncope (Acute) Fibromyalgia (Acute) Abnormal mammogram of left breast (Acute ~04/11/24) [facility] [place]- probable clustered microcysts but biopsy should be considered. Category 4a Imbalance (Acute) Pulsatile tinnitus, right ear (Acute) Otalgia, right ear (Acute) Abnormal CT of the abdomen (Acute) Abdominal pain (Acute) Rectal bleeding (Acute) Annual physical exam (Acute) Dry eyes (Acute) Arthralgia (Acute) Diverticulosis (Acute) Headache (Acute) Chest pain (Acute) Prediabetes (Acute) Stenosing tenosynovitis (Acute) Plantar fasciitis (Acute) Cervical pain (neck) (Acute) Encounter for annual physical exam (Acute) Disc herniation (Acute) Reflex abnormality (Acute) Quadriceps weakness (Acute) Spondylolisthesis at L5-S1 level (Acute) increase from 10 to 20% in 6 years Vitamin D deficiency (Acute) Palpitations (Acute) Chronic gastritis (Acute) Breast cancer (Chronic) R mastectomy Shortness of breath (Chronic) CXR-normal. lab-normal; PFT-? asthma-decreased FEV1/FVC; no response to albuterol; increased diffusion capacity Peptic reflux disease (Chronic 07/26/13) with dysphagia normal barium swallow Low back pain (Chronic) spondylolisthesis 08/22 Intractable migraine without aura and with status migrainosus (Chronic 12/24/15) Hyperlipidemia (Chronic) Hiatal hernia (Chronic) by barium swallow Essential hypertension (Chronic 07/21/13) Depressive disorder (Chronic) Degeneration of cervical intervertebral disc (Chronic) xray-C5-6 DDD/mild DJD Chronic daily headache (Chronic 12/24/15) Medical History Left ovarian cyst Family history of aortic aneurysm Family history of aneurysm of blood vessel of brain Near syncope (11/05/15) Left groin pain (12/25/14) Surgical History S/P right mastectomy Ligation of fallopian tube Vaginal hysterectomy (04/22/16) Endometrial Biopsy (08/26/11) Endometrial Ablation (~2011) EGD - MAC (08/13/14) DR. MCDANIEL Family History Father Aorta aneurysm Hypertension Hyperlipidemia Cancer of kidney 1/5 of kidney removed Heart disease Alcohol abuse Mother Aorta aneurysm Hypertension Hyperlipidemia Aunt/Uncle Aorta aneurysm Sister Bipolar 1 disorder Son Alcohol abuse Depression Diabetes Son Asthma Daughter Depression Daughter Depression Maternal Grandfather , in his 70s No problems noted. Paternal Grandfather No problems noted. Maternal Grandmother , in her 40s Brain aneurysm Paternal Grandmother , 82 Heart disease Hypertension Stroke Social History Smoking/Tobacco Use Status: Never Second Hand Exposure: Yes Smoking risk assessment performed?: Yes Alcohol Intake: never Drug use: Never Substance use type: does not use Counseling given: No Caregiver/Support person: No Household members: spouse and children Housing: house Communication Needs: None Do you need help understanding health information?: Never current occupation: [employer]. Pets and animals: Yes Pets and animals: dog(s) and other Details: RABBIT Sexually active: Yes Do you think of yourself as: straight/heterosexual Current gender identity: female What is your relationship status?: How often do you talk on the phone with friends or family?: three or more times per week How often do you get together with friends or relatives?: three or more times per week How often do you attend restorationism or roman catholic services?: decline to answer Do you belong to any clubs or organized social groups?: yes Panel score (0-1 are the most socially isolated patients): 3 What type of physical activity do you participate in: none Augustina/Caodaism: No preference Special augustina needs: No Seatbelt use: always Drive intox or ride w/intox truck driver teamster: No Do you feel safe at home: Yes Do you feel safe in your relationship?: Yes Victim of physical abuse: No Victim of emotional abuse: No Victim of sexual abuse: No Would you like helpful sources: No Female Reproductive History Menstrual Menopause type: surgical
[2024-10-13 23:13] LABS: Abs Immature Grans 0.03 10^3/uL (0.0-0.06); Absolute Basophil Count 0.04 10^3/uL (0.0-0.2); Absolute Eosinophil Count 0.15 10^3/uL (0.0-0.7); Absolute Monocyte Count 0.42 10^3/uL (0.1-0.8); Absolute Neutrophil Count 4.02 10^3/uL (1.2-6.7); Basophils % 0.5 %; HCT 39.7 % (36.0-46.0); HGB 13.3 g/dL (11.2-15.7); Immature Grans % 0.4 %; Lymphocytes % 39.2 %; MCH 30.3 pg (27.0-33.0); MCHC 33.5 % (32.0-36.0); MCV 90 fL (80-95); MPV 10.2 fL (8.0-11.0); Monocytes % 5.5 %; Neutrophils % 52.4 %; Platelet Count 234 10^3/uL (130-400); RBC 4.39 10^6/uL (3.93-5.22); RDW 12.8 % (11.7-14.6); RDW-SD 42.1 fL; WBC 7.66 10^3/uL (4.4-10.8)
[2024-10-13 23:18] VITALS: BP 152/95; BP 154/81; BP 169/81; PULSE 81; PULSE 84; PULSE 88; PULSE 89; RESP 14; O2SAT 99
[2024-10-13 23:32] LABS: ALT 34 U/L (14-59); AST 18 U/L (15-37); Alkaline Phosphatase 121 U/L (46-116); Anion Gap 9.2 mmol/L (3-11); BUN 20 mg/dL (7-18); Bilirubin, Total 0.3 mg/dL (0.2-1.0); CO2 27.8 mmol/L (21.0-32.0); CREATININE 0.9 mg/dL (0.55-1.02); Calcium 9.7 mg/dL (8.5-10.1); Chloride 104 mmol/L (98-107); Estimated GFR 76.44 (mL/min/1.73m2); Glucose 156 mg/dL (74-106); Potassium 3.5 mmol/L (3.5-5.1); Sodium 141 mmol/L (136-145); Total Protein 7.4 g/dL (6.4-8.2); Troponin I 14 ng/L (<or=51)
[2024-10-13 23:41] LABS: D-Dimer 496 ng/mlFEU (<500)
[2024-10-13 23:49] LABS: COVID-19 PCR Negative (Negative); Influenza A PCR Negative (Negative); Influenza B PCR Negative (Negative); RSV PCR Negative (Negative)
[2024-10-13 23:50] LABS: Source Nasopharynx
[2024-10-14 00:22] LABS: Troponin I 9 ng/L (<or=51)
[2024-10-14 00:56] VITALS: BP 136/84; PULSE 86; RESP 21; TEMP 36.8; O2SAT 99
== END 2024-10-14 01:00 | disposition home or self-care (01) ==
PROVIDERS: Emergency Provider Student in an Organized Health Care Education/Training Program; PCP Family Medicine
DX: R53.83 Other fatigue (principal); R55 Syncope and collapse; I10 Essential (primary) hypertension
CPT/HCPCS: 36415; 80053; 82962; 87637; 93005; 99284; 83735; 84484; 85025; 85379; 93010

== ENCOUNTER 2025-05-07 17:16 | Outpatient (REF) | payer BC, SELFPAY ==
[2025-05-07 21:20] LABS: Glucose Negative (Negative)
[2025-05-07 21:30] LABS: C & S Indicated? No; RBC 0-2 HPF (0-2)
== END 2025-05-07 17:17 | disposition home or self-care (01) ==
LOC: LBN 17:16
PROVIDERS: PCP Family Medicine; Visit Provider Nurse Practitioner Family
DX: R39.9 Unspecified symptoms and signs involving the genitourinary system (principal)
CPT/HCPCS: 81003; 81015

== ENCOUNTER 2025-05-10 20:33 | Emergency (ER) | payer BC, SELFPAY ==
[2025-05-10] VITALS (14 sets, daily range): BP systolic 142–151; BP diastolic 89–94; PULSE 96–116; RESP 16; TEMP 36.8–37.3; O2SAT 94–99
--- NOTE | 2025-05-10 20:44 | W.ED.GENAD ---
Discharge Plan Disposition Patient Disposition: Home Condition: Stable Discharge Details Clinical Impression: Diverticulitis Primary Care Provider: Katheryn Velasquez ED Provider: Jerson Bloom Home Meds and New Rx's Prescriptions: New amoxicillin-pot clavulanate 875-125 mg tablet 1 tab PO BID 10 Days Qty: 20 0RF Continued 5-hydroxytryptophan(5HTP)-B6-C 50-4-60 mg tablet,delayed release (DR/EC) 1 tab PO DAILY fluticasone propionate [Allergy Relief (fluticasone)] 50 mcg/actuation spray,suspension 1 spray intranasal BID Rx Instructions: administer into each nostril famotidine [Pepcid] 20 mg tablet 20 mg PO DAILY PRN lisinopril-hydrochlorothiazide 20-12.5 mg tablet 1 tab PO DAILY Qty: 90 4RF potassium chloride 20 mEq tablet extended release 20 meq PO DAILY Qty: 90 5RF acetaminophen [Tylenol Extra Strength] 500 mg tablet 1,000 mg PO BID PRN (Reason: Pain) loratadine 10 mg Capsule 10 mg PO DAILY coenzyme Q10 100 mg Tablet,Chewable 100 mg PO DAILY np-hb-eqow-FA-Ca carb-vit K 18 mg iron-400 mcg-500 mg Tablet 1 tab PO DAILY vitamin B complex Tablet 1 tab PO DAILY Discharge Instructions Instructions: Diverticulitis, Amoxicillin and Clavulanate Additional Instructions: You were seen in the emergency department for left-sided abdominal pain, you have extensive diverticulosis with inflammation of the entire descending colon likely diverticulitis we are starting you on Augmentin to treat this. Please take the prescribed Augmentin as directed, use Tylenol and ibuprofen and MiraLAX as needed, return for any severe increase in abdominal pain especially fever, black or bloody stools, failure to pass any flatus or have any bowel movements, you are welcome to call the general surgery department to see if they want to do any follow-up imaging or colonoscopy in the short-term. Referrals: [facility] [Provider Group] Katheryn Velasquez MD, [place] [Primary Care Provider, Medicine] HPI General Date/Time Provider Initiated Documentation: 05/10/25 20:34. HPI Narrative: 55 year-old female presents to ED today by POV/ambulating with a chief complaint of L sided abdominal pain, L flank pain with onset for the past few days, seen at [facility] for urinary frequency with negative UTI workup days ago. Quality described as generalized aching, no radiation to nausea/vomiting, black/bloody/liquid diarrhea, complete constipation, dysuria, fever, chest pain, shortness of breath. Severity is described as moderate to severe. Palliating factors include took Tylenol at 1530 today. Provoking factors include nothing specific. Events leading up to the incident/Associated Symptoms: Patient has known diverticulosis. Patient not anticoagulated. Related Data Home Medications ?Medication ?Instructions ?Recorded ?Confirmed acetaminophen 500 mg tablet 1,000 mg PO BID PRN Pain 04/06/19 05/10/25 (Tylenol Extra Strength) loratadine 10 mg capsule 10 mg PO DAILY 06/25/22 05/10/25 coenzyme Q10 100 mg chewable tablet 100 mg PO DAILY 02/16/23 05/10/25 wgrikett-onk-xgps-FA-Ca carb-vit K 1 tab PO DAILY 02/16/23 05/10/25 18 mg iron-400 mcg-500 mg tablet 5-hydroxytryptophan(5HTP) 50 mg-B6 1 tab PO DAILY 02/03/24 05/10/25 4 mg-C 60 mg tablet,delayed release famotidine 20 mg tablet (Pepcid) 20 mg PO DAILY PRN 02/03/24 05/10/25 fluticasone propionate 50 1 spray intranasal BID 02/03/24 05/10/25 mcg/actuation nasal spray,suspension (Allergy Relief (fluticasone)) lisinopril 20 1 tab PO DAILY #90 tabs 04/05/24 05/10/25 mg-hydrochlorothiazide 12.5 mg tablet potassium chloride 20 mEq 20 meq PO DAILY #90 tabs 03/19/25 05/10/25 tablet,extended release amoxicillin 875 mg-potassium 1 tab PO BID 10 days #20 tabs 05/10/25 clavulanate 125 mg tablet vitamin B complex 1 tab PO DAILY 05/10/25 05/10/25 Previous Rx's ?Medication ?Instructions ?Recorded lisinopril 20 1 tab PO DAILY #90 tabs 04/05/24 mg-hydrochlorothiazide 12.5 mg tablet potassium chloride 20 mEq 20 meq PO DAILY #90 tabs 03/19/25 tablet,extended release amoxicillin 875 mg-potassium 1 tab PO BID 10 days #20 tabs 05/10/25 clavulanate 125 mg tablet Allergies Allergy/AdvReac Type Severity Reaction Status Date / Time topiramate (From Topamax) AdvReac Mental Verified 05/10/25 20:41 changes General Stated Complaint: Abd Prob KEVIN: 3 Review of Systems All systems reviewed & are unremarkable except as noted in HPI and below Exam Narrative Exam Narrative: GENERAL APPEARANCE: Well-nourished, non-toxic, awake and alert, atraumatic, mild acute distress. SKIN: Warm, pink, dry, intact, without rashes/lesions/ulcerations. HEAD: Normocephalic, atraumatic, normal hair distribution for gender/age. EYES: Normal conjunctiva, no exudates on lids/lashes. ENT: Nares patent, no circumoral cyanosis, no facial swelling NECK: Supple, trachea midline, painless cervical ROM. LUNGS/CHEST: Lungs CTA bilaterally- no rhonchi/rales/wheezes diffusely, non-labored respirations, normal A/P diameter, symmetrical expansion, no chest wall deformity HEART (CV/PV): Regular rate and rhythm without murmur, no peripheral edema, no JVD. ABDOMEN: Soft, non-distended, no guarding, LUQ/LLQ abdominal tenderness without Rovsing's, negative Stern's sign, + L CVA tenderness to percussion. MSK: Normal ROM, no swelling/deformity to bilateral UEs or LEs, moving all extremities without weakness, no cyanosis, spine midline without tenderness, normal curvature. NEURO: Mental Status AAOx4 - alert to person, place, time, events No facial droop, no forehead involvement. Motor: No focal weakness - strength 5/5 in bilateral UEs and LEs, proximal and distal, symmetric. Sensory: sensation intact to light touch globally. Gait normal: patient ambulated without ataxia into ED room. PSYCH: euthymic, cooperative, pleasant, appropriate speech Course Vital Signs Vital signs: Vital Signs Temperature 37.3 C 05/10/25 20:35 Pulse 113 H 05/10/25 20:35 Respiratory Rate 16 05/10/25 20:35 Blood Pressure 151/94 H 05/10/25 20:35 Pulse Oximetry 98 05/10/25 20:35 Temperature 37.3 C 05/10/25 20:35 Temperature Source Oral 05/10/25 20:35 Pulse 113 H 05/10/25 20:35 Respiratory Rate 16 05/10/25 20:35 Blood Pressure 151/94 H 05/10/25 20:35 Blood Pressure Position Supine 05/10/25 20:35 Pulse Oximetry 98 05/10/25 20:35 Oxygen Delivery Method Room Air 05/10/25 20:35 Oxygen Flow Rate 0 05/10/25 20:35 Pain Level 4 05/10/25 20:35 Medical Decision Making This dictation utilizes [id number] dictation software and may contain unedited grammatical errors. 55 year-old female presents to ED today by POV/ambulating with a chief complaint of L sided abdominal pain, L flank pain with onset for the past few days, seen at [facility] for urinary frequency with negative UTI workup days ago. Quality described as generalized aching, no radiation to nausea/vomiting, black/bloody/liquid diarrhea, complete constipation, dysuria, fever, chest pain, shortness of breath. Severity is described as moderate to severe. Palliating factors include took Tylenol at 1530 today. Provoking factors include nothing specific. Events leading up to the incident/Associated Symptoms: Patient has known diverticulosis. Patients' medical history: History of vaginal hysterectomy, fibromyalgia, breast cancer with right mastectomy, hypertension. Family and social history: Family history of aortic aneurysm. Pertinent exam findings / vital signs include left-sided abdominal tenderness without overt peritoneal findings, no Rovsing's, left CVA tenderness percussion, tachycardic on arrival which normalized to 96 which is above her baseline, lungs CTA. Differential / pathologies of concern include diverticulitis, inflammatory bowel disease, colon neoplasm, colitis, gastroenteritis. Diagnostic studies of: - CBC, CMP, lactate, magnesium, lipase, UA, CT ABD/pelvis with contrast. - CBC shows mild leukocytosis at 13.5 without left shift with elevated absolute neutrophils and elevated monocytes - Lactate negative - CMP without actionable abnormality - Lipase within normal limits - UA shows no signs of infection - CT scan shows extensive inflammatory process with diffuse diverticulosis of the entire descending colon, could be multilevel diverticulitis versus other inflammatory process of colitis - ESR negative - CRP elevated to 14 Interventions of: - Few milligram IVP ketorolac, 1 L IVF NS, consulted with Dr. Bowles of general surgery practice at 2220. -875 augmentin PO ED Course/Assessment/Plan: 55-year-old female presents with left-sided abdominal pain for few days, known diverticulosis, CT shows diffuse inflammation of the descending colon with many diverticula, discussed with surgery on-call, reasonable to treat with Augmentin for diverticulitis but patient may need follow-up with repeat imaging or colonoscopy if not improving, counseled on regular use of Tylenol and ibuprofen, started on Augmentin here and sent the rest to her pharmacy to [facility], encourage MiraLAX as needed. Patients CRP is elevated- may need further workup by surgery and treatment for IBD if it does not normalize with treatment of possible diverticulitis infection. Findings not consistent with perforation or abscess, SBO, sepsis, inflammatory bowel disease. Disposition of diverticulitis. Patient verbalized understanding of the plan and return to ED criteria and engaged in shared decision making. Medical Records Medical records reviewed: Yes I reviewed the patient's medical records. Imaging Data Radiologic Study: Attestation: I personally reviewed and interpreted this imaging study as follows: Imaging: CT Scan Radiologist's impression: EXAM: CT ABDOMEN PELVIS W CLINICAL HISTORY: LUQ tenderness, L flank pain. TECHNIQUE: Imaging Protocol: Axial computed tomography images with coronal and sagittal reformatted images were created and reviewed CONTRAST MATERIAL: Intravenous: Omnipaque-350 100cc Oral: None COMPARISON: CT CT THORAX ABD/PEL CTA from 04/04/2024 FINDINGS: VISUALIZED LUNG BASES: No nodules nor pleural effusions evident. ABDOMEN: There is no ascites. LIVER: There are no focal hepatic lesions evident. No dilated intrahepatic ducts. GALLBLADDER/BILIARY: No obvious gallbladder pathology. CBD is not dilated. PANCREAS: No evidence of pancreatic mass nor dilatation of the pancreatic duct. SPLEEN: Spleen is not enlarged. No obvious intrasplenic lesions. Splenic and portal veins are patent. ADRENALS: There are no significant adrenal masses. KIDNEYS:No cysts evident. No solid renal masses. No calculi nor hydronephrosis.. ABDOMINAL AORTA: Abdominal aorta is not enlarged. LYMPH NODES:There is no retroperitoneal nor paraaortic adenopathy. ABDOMINAL WALL: No evidence of significant anterior abdominal wall nor inguinal hernia. GI: There is extensive diverticulosis of the entire left side of the colon at and distal to the splenic flexure as well as diverticulosis of the sigmoid. There is extensive inflammatory process involving a large segment of the descending-left colon from the splenic flexure down to the upper sigmoid which is either colitis, multilevel diverticulitis, or a combination thereof. There is diffuse wall edema and pericolonic streaking. Phlegmonous but no formed abscess at this time. There is no free purulent fluid in the dependent aspect of the pelvis. PELVIS: GI: No evidence of appendicitis. LYMPH NODES: There is no intrapelvic nor inguinal adenopathy. REPRODUCTIVE: Uterus is surgically absent. No abnormal adnexal masses. URINARY BLADDER: No calculi nor obvious masses evident OSSEOUS: No fractures and no significant osseous lesions. Again noted is 1 cm anterolisthesis of L5 upon S1 due to bilateral pars defects at L5 level again noted and there is also again noted advanced disc space narrowing at L5-S1 level. Other disc spaces exhibit normal height. IMPRESSION: There is extensive diverticulosis of the descending-left colon and sigmoid. On the present study there is now extensive inflammatory process involving a large segment of the left side of the colon from the splenic flexure down to the upper sigmoid with relative sparing of the mid-lower sigmoid. This left-sided colon inflammatory process extends over a length of approximately 18-20 cm of the large bowel. Either extensive multilevel diverticulitis, colitis, or a combination of both. Report called by myself to ER provider 05/10/2025 at 10:05 p.m. Lab Data Lab results reviewed: Yes I reviewed the patient's lab results. Labs: Laboratory Tests Range/Units 05/10/25 05/10/25 20:45 21:04 WBC (4.4-10.8) 10^3/uL 13.52 H RBC (3.93-5.22) 10^6/uL 4.35 Hgb (11.2-15.7) g/dL 13.1 Hct (36.0-46.0) % 39.4 MCV (80-95) fL 91 MCH (27.0-33.0) pg 30.1 MCHC (32.0-36.0) % 33.2 RDW (11.7-14.6) % 13.2 Plt Count (130-400) 10^3/uL 235 MPV (8.0-11.0) fL 9.9 Immature Gran % % 0.4 Neutrophils % % 79.3 Lymphocytes % % 11.9 Monocytes % % 7.7 Eosinophils % % 0.5 Basophils % % 0.2 Nucleated RBC % (0.0-0.3) % 0.0 Absolute Neutrophils (1.2-6.7) 10^3/uL 10.72 H Absolute Lymphocytes (1.2-3.4) 10^3/uL 1.61 Absolute Monocytes (0.1-0.8) 10^3/uL 1.04 H Absolute Eosinophils (0.0-0.7) 10^3/uL 0.07 Absolute Basophils (0.0-0.2) 10^3/uL 0.03 ESR (0-30) mm/hr 28 VBG Lactate (<or=2.0) mmol/L 0.9 Sodium (136-145) mmol/L 137 Potassium (3.5-5.1) mmol/L 3.6 Chloride (98-107) mmol/L 99 Carbon Dioxide (21.0-32.0) mmol/L 27.9 Anion Gap (3-11) mmol/L 10.1 BUN (7-18) mg/dL 14 Creatinine (0.55-1.02) mg/dL 0.7 Est GFR (CKD-EPI 2020) (mL/min/1.73m2) 102.71 Glucose (74-106) mg/dL 128 H Calcium (8.5-10.1) mg/dL 9.1 Magnesium (1.8-2.4) mg/dL 2.1 Total Bilirubin (0.2-1.0) mg/dL 0.5 AST (15-37) U/L 16 ALT (14-59) U/L 26 Alkaline Phosphatase (46-116) U/L 111 C-Reactive Protein (<or=0.5) mg/dL 14.18 H Total Protein (6.4-8.2) g/dL 7.7 Albumin (3.4-5.0) g/dL 3.8 Lipase (<78) U/L 49 Urine Color (Yellow) Yellow Urine Clarity (Clear) Clear Urine pH (5-8) 7.0 Ur Specific Comfort (1.005-1.025) 1.020 Urine Protein (Neg-Trace) mg/dL Negative Urine Ketones (Negative) mg/dL Negative Urine Blood (Negative) Trace-intact H Urine Nitrite (Negative) Negative Urine Bilirubin (Negative) Negative Urine Urobilinogen (Up to 0.2) mg/dL 0.2 Ur Leukocyte Esterase (Negative) Trace H Urine RBC (0-2) HPF 3-5 H Urine WBC (0-5) HPF 0-2 Ur Epithelial Cells (Negative) HPF Rare Urine Crystals (Negative) HPF Negative Urine Bacteria (Negative) HPF Rare Urine Casts (Negative) LPF Negative Urine Mucus (Negative) Negative Ur Culture Indicated? No Urine Glucose (Negative) mg/dL Negative PFSH All Active Problems (Updated 05/10/25 @ 22:41 by ESTRADA Guajardo) Diverticulitis (Chronic) Fibromyalgia (Acute) Abnormal mammogram of left breast [place]Acute ~04[place]11/24[place] [facility] [place]cy[place] but biopsy should be considered. Category 4a Imbalance (Acute) Pulsatile tinnitus, right ear (Acute) Otalgia, right ear (Acute) Abnormal CT of the abdomen (Acute) Abdominal pain (Acute) Rectal bleeding (Acute) Annual physical exam (Acute) Dry eyes (Acute) Arthralgia (Acute) Diverticulosis (Acute) Headache (Acute) Chest pain (Acute) Prediabetes (Acute) Stenosing tenosynovitis (Acute) Plantar fasciitis (Acute) Cervical pain (neck) (Acute) Encounter for annual physical exam (Acute) Disc herniation (Acute) Reflex abnormality (Acute) Quadriceps weakness (Acute) Spondylolisthesis at L5-S1 level (Acute) increase from 10 to 20% in 6 years Vitamin D deficiency (Acute) Palpitations (Acute) Chronic gastritis (Acute) Breast cancer (Chronic) R mastectomy Shortness of breath (Chronic) CXR-normal. lab-normal; PFT-? asthma-decreased FEV1/FVC; no response to albuterol; increased diffusion capacity Peptic reflux disease (Chronic 07/26/13) with dysphagia normal barium swallow Low back pain (Chronic) spondylolisthesis 08/22 Intractable migraine without aura and with status migrainosus (Chronic 12/24/15) Hyperlipidemia (Chronic) Hiatal hernia (Chronic) by barium swallow Essential hypertension (Chronic 07/21/13) Depressive disorder (Chronic) Degeneration of cervical intervertebral disc (Chronic) xray-C5-6 DDD/mild DJD Chronic daily headache (Chronic 12/24/15) Medical History Left ovarian cyst Family history of aortic aneurysm Family history of aneurysm of blood vessel of brain Near syncope (11/05/15) Left groin pain (12/25/14) Surgical History S/P right mastectomy Ligation of fallopian tube Vaginal hysterectomy (04/22/16) Endometrial Biopsy (08/26/11) Endometrial Ablation (~2011) EGD - MAC (08/13/14) DR. MCDANIEL Family History Father Aorta aneurysm Hypertension Hyperlipidemia Cancer of kidney 1/5 of kidney removed Heart disease Alcohol abuse Emphysema lung COPD (chronic obstructive pulmonary disease) Mother , age 65 Aorta aneurysm Hypertension Hyperlipidemia Aunt/Uncle Aorta aneurysm Sister Bipolar 1 disorder Son Alcohol abuse Depression Diabetes Son Asthma Daughter Depression Daughter Depression Maternal Grandfather , age 56(iris) Alcohol use disorder Aneurysm Paternal Grandfather , in 30's Pneumonia double Maternal Grandmother , age 38 Brain aneurysm Paternal Grandmother , age 82 Heart disease Hypertension Stroke Social History Smoking/Tobacco Use Status: Never Second Hand Exposure: Yes Smoking risk assessment performed?: Yes Alcohol Intake: never Drug use: Never Substance use type: does not use Counseling given: No Adopted: No Caregiver/Support person: No Household members: spouse and children Housing: house Communication Needs: None Do you need help understanding health information?: Never current occupation: [employer] Specialist Pets and animals: Yes Pets and animals: dog(s) and other Details: RABBIT Sexually active: Yes Do you think of yourself as: straight/heterosexual Current gender identity: female What is your relationship status?: How often do you talk on the phone with friends or family?: three or more times per week How often do you get together with friends or relatives?: twice per week How often do you attend jew or restoration services?: decline to answer Do you belong to any clubs or organized social groups?: yes Panel score (0-1 are the most socially isolated patients): 3 What type of physical activity do you participate in: walking Duration: 15-30 minutes/day Frequency: 3-4 times per week Augustina/Methodist: Non quaker Special augustina needs: No Agree to transfusion: No Seatbelt use: always Helmet use: Yes Helmet use: always Drive intox or ride w/intox driver engineer: No Working smoke detector in home: Yes Carbon monox detector in home: Yes Firearms in home: Yes Firearms unloaded and locked: Yes Do you feel safe at home: Yes Do you feel safe in your relationship?: Yes Victim of physical abuse: No Victim of emotional abuse: No Victim of sexual abuse: No Would you like helpful sources: No Female Reproductive History Menstrual Menopause type: surgical
[2025-05-10 20:55] LABS: Abs Immature Grans 0.05 10^3/uL (0.0-0.06); HCT 39.4 % (36.0-46.0); HGB 13.1 g/dL (11.2-15.7); Immature Grans % 0.4 %; MCH 30.1 pg (27.0-33.0); MCHC 33.2 % (32.0-36.0); MCV 91 fL (80-95); MPV 9.9 fL (8.0-11.0); Platelet Count 235 10^3/uL (130-400); RBC 4.35 10^6/uL (3.93-5.22); RDW 13.2 % (11.7-14.6); RDW-SD 43.1 fL; WBC 13.52 10^3/uL (4.4-10.8)
[2025-05-10] MEDS: Normal Saline 1,000 ML 1000 ML IV (20:56)
[2025-05-10] MEDS: Ketorolac 15 MG/ML VIAL IVP (20:56)
[2025-05-10] MEDS: Omnipaque 350 MG/ML 100 ML BTL IJ (21:06)
[2025-05-10] MEDS: Normal Saline - Diluent 50 ML VIAL IJ (21:07)
[2025-05-10] MEDS: Normal Saline Flush 10 ML SYR IVP (21:07)
[2025-05-10 21:15] LABS: Glucose Negative (Negative)
[2025-05-10 21:19] LABS: ALT 26 U/L (14-59); AST 16 U/L (15-37); Albumin 3.8 g/dL (3.4-5.0); Alkaline Phosphatase 111 U/L (46-116); Anion Gap 10.1 mmol/L (3-11); BUN 14 mg/dL (7-18); Bilirubin, Total 0.5 mg/dL (0.2-1.0); CO2 27.9 mmol/L (21.0-32.0); Calcium 9.1 mg/dL (8.5-10.1); Chloride 99 mmol/L (98-107); Estimated GFR 102.71 (mL/min/1.73m2); Glucose 128 mg/dL (74-106); Magnesium 2.1 mg/dL (1.8-2.4); Potassium 3.6 mmol/L (3.5-5.1); Sodium 137 mmol/L (136-145); Total Protein 7.7 g/dL (6.4-8.2)
[2025-05-10 21:26] LABS: Lipase 49 U/L (<78)
[2025-05-10 21:46] LABS: C & S Indicated? No; WBC 0-2 HPF (0-5)
[2025-05-10 22:16] LABS: ESR 28 mm/hr (0-30)
[2025-05-10 22:23] LABS: C-Reactive Protein 14.18 mg/dL (<or=0.5)
[2025-05-10] MEDS: Amoxicillin 875/Clav. 125 TAB PO (22:48)
== END 2025-05-10 22:54 | disposition home or self-care (01) ==
PROVIDERS: Emergency Provider Physician Assistant; PCP Family Medicine
DX: K57.92 Diverticulitis of intestine, part unspecified, without perforation or abscess without bleeding (principal); R10.12 Left upper quadrant pain; R10.812 Left upper quadrant abdominal tenderness
CPT/HCPCS: 36415; 80053; 83690; 85652; 96361; 96374; 99285; 74177; 81003; 81015; 83605; 83735; 85025; 86140; 99284; J1885; J3490

== ENCOUNTER 2025-05-22 13:40 | Outpatient (CLI) | payer BC, SELFPAY ==
[2025-05-22 13:49] LABS: Abs Immature Grans 0.04 10^3/uL (0.0-0.06); HCT 39.6 % (36.0-46.0); HGB 12.9 g/dL (11.2-15.7); Immature Grans % 0.4 %; MCH 29.7 pg (27.0-33.0); MCHC 32.6 % (32.0-36.0); MCV 91 fL (80-95); MPV 9.2 fL (8.0-11.0); Platelet Count 283 10^3/uL (130-400); RBC 4.35 10^6/uL (3.93-5.22); RDW 13.1 % (11.7-14.6); RDW-SD 43.0 fL; WBC 9.01 10^3/uL (4.4-10.8)
[2025-05-22 14:05] LABS: Anion Gap 10.7 mmol/L (3-11); BUN 10 mg/dL (7-18); CO2 28.3 mmol/L (21.0-32.0); Calcium 9.3 mg/dL (8.5-10.1); Chloride 99 mmol/L (98-107); Estimated GFR 102.71 (mL/min/1.73m2); Glucose 91 mg/dL (74-106); Potassium 3.6 mmol/L (3.5-5.1); Sodium 138 mmol/L (136-145)
== END 2025-05-22 13:41 | disposition home or self-care (01) ==
LOC: LBO 13:40
PROVIDERS: PCP Family Medicine; Visit Provider Student in an Organized Health Care Education/Training Program
DX: K57.92 Diverticulitis of intestine, part unspecified, without perforation or abscess without bleeding (principal)
CPT/HCPCS: 36415; 80048; 85025

== ENCOUNTER 2025-06-26 03:26 | Outpatient (CLI) | payer BC, SELFPAY ==
[2025-06-26 15:59] LABS: HCT 39.0 % (36.0-46.0); HGB 12.9 g/dL (11.2-15.7); MCH 29.9 pg (27.0-33.0); MCHC 33.1 % (32.0-36.0); MCV 91 fL (80-95); MPV 9.8 fL (8.0-11.0); Platelet Count 251 10^3/uL (130-400); RBC 4.31 10^6/uL (3.93-5.22); RDW 12.9 % (11.7-14.6); RDW-SD 42.9 fL; WBC 6.67 10^3/uL (4.4-10.8)
[2025-06-26 16:04] LABS: ESR 3 mm/hr (0-30)
[2025-06-26 16:43] LABS: Hemoglobin A1C 5.8 % (<5.7)
[2025-06-26 16:58] LABS: C-Reactive Protein < 0.50 mg/dL (<=0.50); Vitamin B12 502 pg/mL (211-911)
[2025-06-26 17:46] LABS: ALT 23 U/L (10-49); AST 23 U/L (<34); Albumin 4.6 g/dL (3.4-5.0); Alkaline Phosphatase 104 U/L (46-116); Anion Gap 7.3 mmol/L (3-11); BUN 16 mg/dL (9-23); Bilirubin, Total 0.20 mg/dL (0.2-1.2); CO2 28.7 mmol/L (20.0-31.0); Calcium 9.8 mg/dL (8.3-10.6); Chloride 101 mmol/L (98-107); Cholesterol 251 mg/dL (<200); Glucose 93 mg/dL (74-106); HDL Cholesterol 41 mg/dL (>40); Potassium 4.6 mmol/L (3.5-5.1); Sodium 137 mmol/L (136-145); Total Protein 7.2 g/dL (5.7-8.2)
== END 2025-06-26 03:27 | disposition home or self-care (01) ==
LOC: LBO 03:27
PROVIDERS: PCP Family Medicine; Visit Provider Family Medicine
DX: I10 Essential (primary) hypertension (principal); K21.9 Gastro-esophageal reflux disease without esophagitis; R10.9 Unspecified abdominal pain; E11.9 Type 2 diabetes mellitus without complications
CPT/HCPCS: 36415; 80053; 80061; 85027; 85652; 82607; 83036; 86140

== ENCOUNTER 2025-06-28 16:35 | Outpatient (REF) | payer BC, SELFPAY | END 2025-06-28 16:36 | disposition home or self-care (01) | LOC: LBN 16:35 | PROVIDERS: PCP Family Medicine; Visit Provider Family Medicine | DX: K21.9 Gastro-esophageal reflux disease without esophagitis (principal); R10.9 Unspecified abdominal pain | CPT/HCPCS: 83993 ==